=== PATIENT | female | born 1965 | race Caucasian/White ===

== ENCOUNTER → 2016-11-04 | Outpatient (REF) | payer MEDICARE, MEDICAID | LOC: M LAB REF 16:27 | PROVIDERS: ATTEND Physician Assistant | DX: R30.0 Dysuria (principal) ==

== ENCOUNTER 2016-12-19 13:07 | Emergency (ER) | payer MEDICARE, MEDICAID ==
[~2016-12-19] VITALS: Ht 162.6 cm; Wt 61.2 kg
[2016-12-19] MEDS ORDERED: NORCO, ANEXSIA 5/325MG TABLET (HYDROcodone/ACETAMINOPHEN) PO ONE (13:45)
--- NOTE | 2016-12-19 14:39 | REP ---
Right lower extremity Duplex Doppler venous ultrasound: Real time compression and duplex Doppler interrogation of the right lower extremity deep venous system is performed. The right common femoral, superficial femoral and popliteal veins are fully compressible with transducer pressure and demonstrate normal spontaneous and phasic flow, without evidence of deep venous thrombosis. Impression: No evidence of deep venous thrombosis of the right lower extremity femoral popliteal venous system. Signed by Santo Badillo MD 12/19/2016 02:30 P
[2016-12-19] MEDS ORDERED: NAPR500T PO (14:45)
[2016-12-19 14:54] VITALS: BP 126/73
== END 2016-12-19 14:52 | disposition home or self-care (01) ==
LOC: M ED 13:07
DX: M54.31 Sciatica, right side (principal); M54.16 Radiculopathy, lumbar region; Z87.891 Personal history of nicotine dependence

== ENCOUNTER → 2017-06-03 | Outpatient (CLI) | payer MEDICARE, MEDICAID | LOC: M RAD 09:50 | DX: Z12.31 Encounter for screening mammogram for malignant neoplasm of breast (principal); R92.8 Other abnormal and inconclusive findings on diagnostic imaging of breast | CPT/HCPCS: 77067 ==

== ENCOUNTER → 2017-09-02 | Outpatient (REF) | payer MEDICARE, MEDICAID ==
[2017-09-02 17:18] LABS: APPEARANCE, URINE HAZY (CLEAR); BACTERIA, URINE AUTO NEGATIVE (NEGATIVE); BILIRUBIN, URINE AUTO NEGATIVE (NEGATIVE); BLOOD, URINE BLOOD NEGATIVE (NEGATIVE); CALCIUM OXALATE CRYSTALS LARGE; COLOR, URINE YELLOW (YELLOW); GLUCOSE, URINE (UA) AUTO 1+ mg/dL (NEGATIVE); KETONE, URINE AUTO NEGATIVE (NEGATIVE); LEUKOCYTE ESTERASE, URINE AUTO NEGATIVE (NEGATIVE); MUCUS, URINE SMALL (NEGATIVE); NITRITE, URINE AUTO NEGATIVE (NEGATIVE); PROTEIN, URINE AUTO NEGATIVE (NEGATIVE); RBC, URINE AUTO 2 /HPF (0-3); SQUAMOUS EPITHELIAL CELL UR AU 0 /HPF (0-6); UROBILINOGEN, URINE AUTO 0.2 mg/dL (0.0-2.0); WBC, URINE AUTO 2 /HPF (0-3)
== END ==
LOC: M LAB REF 16:40
DX: N39.0 Urinary tract infection, site not specified (principal)
CPT/HCPCS: 81001

== ENCOUNTER → 2018-02-10 | Outpatient (REF) | payer MEDICARE, MEDICAID ==
[2018-02-10 17:37] LABS: APPEARANCE, URINE CLOUDY (CLEAR); BACTERIA, URINE AUTO 2+ (NEGATIVE); BILIRUBIN, URINE AUTO NEGATIVE (NEGATIVE); BLOOD, URINE BLOOD 2+ (NEGATIVE); CALCIUM OXALATE CRYSTALS MODERATE; COLOR, URINE YELLOW (YELLOW); GLUCOSE, URINE (UA) AUTO NEGATIVE (NEGATIVE); KETONE, URINE AUTO NEGATIVE (NEGATIVE); LEUKOCYTE ESTERASE, URINE AUTO 3+ (NEGATIVE); MUCUS, URINE SMALL (NEGATIVE); NITRITE, URINE AUTO NEGATIVE (NEGATIVE); PROTEIN, URINE AUTO NEGATIVE (NEGATIVE); RBC, URINE AUTO 18 /HPF (0-3); SPECIFIC GRAVITY URINE AUTO 1.017 (1.002-1.035); SQUAMOUS EPITHELIAL CELL UR AU 0 /HPF (0-6); UROBILINOGEN, URINE AUTO 0.2 mg/dL (0.0-2.0); WBC, URINE AUTO TNTC /HPF (0-3)
== END ==
LOC: M LAB REF 16:34
DX: N39.0 Urinary tract infection, site not specified (principal)
CPT/HCPCS: 81001

== ENCOUNTER → 2018-05-10 | Outpatient (REF) | payer MEDICARE, MEDICAID ==
[2018-05-10 13:36] LABS: BASO % 0.7 % (0.0-1.0); EOS # 0.1 10^3/uL (0.0-0.50); EOS % 0.9 % (0.0-3.0); HEMATOCRIT 47.2 % (36.0-47.0); HEMOGLOBIN 15.9 g/dl (12.0-15.5); IMMATURE GRANULOCYTE % 0.2 % (0-3.0); LYMPH # 1.2 10^3/uL (1.5-4.5); LYMPH % 21.4 % (24.0-44.0); MEAN CORPUSCULAR HEMOGLOBIN 29.4 pg (27.0-33.0); MEAN CORPUSCULAR HGB CONC 33.7 g/dl (32.0-36.5); MEAN CORPUSCULAR VOLUME 87.4 fl (80.0-96.0); MONO # 0.5 10^3/uL (0.0-0.8); MONO % 8.4 % (0.0-5.0); NEUTROPHILS % 68.4 % (36.0-66.0); PLATELET COUNT, AUTOMATED 288 10^3/uL (150-450); WHITE BLOOD COUNT 5.8 10^3/uL (4.0-10.0)
[2018-05-10 13:56] LABS: ALBUMIN 3.6 GM/DL (3.2-5.2); ALKALINE PHOSPHATASE 88 U/L (45-117); ALT/SGPT 24 U/L (12-78); ANION GAP 7 MEQ/L (8-16); AST/SGOT 14 U/L (7-37); BILIRUBIN,TOTAL 0.5 MG/DL (0.2-1.0); BLOOD UREA NITROGEN 14 MG/DL (7-18); CALCIUM LEVEL 8.6 MG/DL (8.5-10.1); CARBON DIOXIDE LEVEL 27 MEQ/L (21-32); CHLORIDE LEVEL 107 MEQ/L (98-107); CHOLESTEROL LEVEL 193 MG/DL (<200); CREATININE FOR GFR 0.83 MG/DL (0.55-1.30); ESTIMATED AVERAGE GLUCOSE 151 MG/DL (60-110); GLOMERULAR FILTRATION RATE > 60.0 (>51); GLUCOSE, FASTING 127 MG/DL (70-100); HDL CHOLESTEROL 50 MG/DL (>40); HEMOGLOBIN A1c 6.9 %; LDL CHOLESTEROL 114 MG/DL (<100); NON-HDL-C 143 MG/DL; POTASSIUM SERUM 3.8 MEQ/L (3.5-5.1); SODIUM LEVEL 141 MEQ/L (136-145); TOTAL 25(OH) VITAMIN D 25.9 NG/ML (30.0-100.0); TOTAL PROTEIN 7.2 GM/DL (6.4-8.2); TRIGLYCERIDES LEVEL 143 MG/DL (<150); VITAMIN B12 LEVEL 677 PG/ML (247-911)
== END ==
LOC: M LAB REF 12:19
DX: E11.9 Type 2 diabetes mellitus without complications (principal); E66.3 Overweight
CPT/HCPCS: 84443

== ENCOUNTER 2018-05-26 17:54 | Emergency (ER) | payer MEDICARE, MEDICAID ==
[~2018-05-26] VITALS: Ht 162.6 cm; Wt 66.4 kg
[~2018-05-26 17:54] MED LIST: NAPR-49 PO
[2018-05-26 18:54] LABS: BASO % 0.4 % (0.0-1.0); EOS # 0.1 10^3/uL (0.0-0.50); EOS % 0.8 % (0.0-3.0); HEMATOCRIT 46.2 % (36.0-47.0); LYMPH # 1.5 10^3/uL (1.5-4.5); LYMPH % 14.2 % (24.0-44.0); MEAN CORPUSCULAR HEMOGLOBIN 29.9 pg (27.0-33.0); MEAN CORPUSCULAR HGB CONC 34.6 g/dl (32.0-36.5); MEAN CORPUSCULAR VOLUME 86.4 fl (80.0-96.0); MONO # 0.6 10^3/uL (0.0-0.8); MONO % 5.5 % (0.0-5.0); NEUTROPHILS # 8.4 10^3/uL (1.8-7.7); NEUTROPHILS % 78.7 % (36.0-66.0); PLATELET COUNT, AUTOMATED 302 10^3/uL (150-450); RED BLOOD COUNT 5.35 10^6/uL (4.00-5.40); WHITE BLOOD COUNT 10.7 10^3/uL (4.0-10.0)
--- NOTE | 2018-05-26 19:06 | REP ---
Portable chest x-ray: Single view. History: Syncope. Findings: The lungs are symmetrically aerated and clear. The pleural angles are sharp. Heart size is normal. Pulmonary vasculature is not increased. EKG monitoring electrodes are seen. No bony abnormality is seen. Impression: No active disease. Electronically Signed by Chandler Zayas MD 05/26/2018 06:58 P
[2018-05-26] MEDS ORDERED: NS 1,000 ML IV ONE (19:30)
[2018-05-26 19:32] LABS: BLOOD UREA NITROGEN 12 MG/DL (7-18); CALCIUM LEVEL 9.2 MG/DL (8.5-10.1); CARBON DIOXIDE LEVEL 23 MEQ/L (21-32); CHLORIDE LEVEL 106 MEQ/L (98-107); CK-MB VALUE MASS < 1.0 NG/ML (<3.6); CPK CREATINE PHOSPHOKINASE 85 U/L (26-192); CREATININE FOR GFR 0.84 MG/DL (0.55-1.30); GLOMERULAR FILTRATION RATE > 60.0 (>51); GLUCOSE, FASTING 130 MG/DL (70-100); MAGNESIUM LEVEL 1.7 MG/DL (1.8-2.4); MB/CK RELATIVE INDEX 1.18 (< OR =4); POTASSIUM SERUM 3.7 MEQ/L (3.5-5.1); SODIUM LEVEL 142 MEQ/L (136-145); TROPONIN I < 0.02 NG/ML (< 0.10)
[2018-05-26] MEDS ORDERED: MAGNESIUM OXIDE 400 MG TAB (MAG-OX) PO ONE (21:00)
[2018-05-26] MEDS ORDERED: ONDANSETRON 4MG/2ML VIAL (J2405) IV ONE (21:00)
[2018-05-26 21:47] VITALS: BP 126/70
--- NOTE | 2018-05-27 11:22 | ECGEPIP ---
Stationary ECG Study [facility] - ED Test Date: 2018-05-26 Pat Name: OCTAVIO THAPA Department: Room: - Gender: F Supervisor Parking Lot: delio : [id number] Requested By: Karen Pablo Order Number: [id number] Reading MD: Richard Pimentel Measurements Intervals Zap Rate: 62 P: 46 FL: 141 QRS: 67 QRSD: 95 T: 50 QT: 439 QTc: 448 Interpretive Statements SINUS RHYTHM WITH SINUS ARRHYTHMIA POSSIBLE INCOMPLETE RIGHT BUNDLE BRANCH BLOCK NSTTW ABNORMALITIES NO PRIORS FOR COMPARISON Electronically Signed On 05-27-2018 11:22:05 EST by Richard Pimentel
== END 2018-05-26 22:03 | disposition home or self-care (01) ==
LOC: EDBD 17:54 → M ED 17:54
DX: I95.1 Orthostatic hypotension (principal); E83.42 Hypomagnesemia; R32 Unspecified urinary incontinence; R11.10 Vomiting, unspecified; E11.9 Type 2 diabetes mellitus without complications
CPT/HCPCS: 71045; 80048; 82550; 82553; 83605; 83735; 84443; 84484; 85025; 93005; 93041; 94760; 96361; 96374; 99285; J2405

== ENCOUNTER → 2018-08-11 | Outpatient (REF) | payer MEDICARE, MEDICAID ==
[~2018-08-11] MED LIST changes: -NAPR-49 PO; +NAPR-50 PO
[2018-08-11 14:35] LABS: BASO % 0.6 % (0.0-1.0); EOS # 0.1 10^3/uL (0.0-0.50); EOS % 1.3 % (0.0-3.0); HEMATOCRIT 46.4 % (36.0-47.0); HEMOGLOBIN 15.9 g/dl (12.0-15.5); LYMPH # 1.3 10^3/uL (1.5-4.5); LYMPH % 19.1 % (24.0-44.0); MEAN CORPUSCULAR HEMOGLOBIN 29.6 pg (27.0-33.0); MEAN CORPUSCULAR HGB CONC 34.3 g/dl (32.0-36.5); MEAN CORPUSCULAR VOLUME 86.4 fl (80.0-96.0); MONO # 0.6 10^3/uL (0.0-0.8); MONO % 7.8 % (0.0-5.0); NEUTROPHILS % 70.8 % (36.0-66.0); PLATELET COUNT, AUTOMATED 296 10^3/uL (150-450); RED BLOOD COUNT 5.37 10^6/uL (4.00-5.40)
[2018-08-11 15:14] LABS: CHOLESTEROL RISK RATIO 3.69 (<5); THYROID STIMULATING HORMONE 2.02 uIU/ML (0.358-3.740)
[2018-08-11 15:15] LABS: TOTAL 25(OH) VITAMIN D 26.5 NG/ML (30.0-100.0)
[2018-08-11 15:21] LABS: HEMOGLOBIN A1c 6.1 %
== END ==
LOC: M LAB REF 13:37
PROVIDERS: ATTEND Nurse Practitioner Family
DX: Z00.00 Encounter for general adult medical examination without abnormal findings (principal); E66.3 Overweight; Z13.9 Encounter for screening, unspecified; E11.9 Type 2 diabetes mellitus without complications; M77.8 Other enthesopathies, not elsewhere classified; J30.2 Other seasonal allergic rhinitis

== ENCOUNTER → 2018-08-30 | Outpatient (REF) | payer MEDICARE, MEDICAID ==
[2018-08-30 15:56] LABS: APPEARANCE, URINE TURBID (CLEAR); BACTERIA, URINE AUTO 3+ (NEGATIVE); BILIRUBIN, URINE AUTO NEGATIVE (NEGATIVE); BLOOD, URINE BLOOD 2+ (NEGATIVE); CALCIUM OXALATE CRYSTALS SMALL; COLOR, URINE YELLOW (YELLOW); GLUCOSE, URINE (UA) AUTO NEGATIVE (NEGATIVE); KETONE, URINE AUTO TRACE mg/dL (NEGATIVE); LEUKOCYTE ESTERASE, URINE AUTO 3+ (NEGATIVE); MUCUS, URINE SMALL (NEGATIVE); NITRITE, URINE AUTO NEGATIVE (NEGATIVE); PROTEIN, URINE AUTO 2+ mg/dL (NEGATIVE); RBC, URINE AUTO 119 /HPF (0-3); SPECIFIC GRAVITY URINE AUTO 1.018 (1.002-1.035); SQUAMOUS EPITHELIAL CELL UR AU 1 /HPF (0-6); UROBILINOGEN, URINE AUTO 0.2 mg/dL (0.0-2.0); WBC, URINE AUTO TNTC /HPF (0-3)
== END ==
LOC: M LAB REF 15:29
PROVIDERS: ATTEND Physician Assistant Medical
DX: N39.0 Urinary tract infection, site not specified (principal)

== ENCOUNTER → 2018-12-07 | Outpatient (REF) | payer MEDICARE, MEDICAID ==
[~2018-12-07] MED LIST changes: -NAPR-50 PO; +NAPR-837 PO
[2018-12-07 18:42] LABS: BASO # 0.1 10^3/uL (0.0-0.2); BASO % 0.6 % (0.0-1.0); EOS # 0.1 10^3/uL (0.0-0.50); EOS % 1.1 % (0.0-3.0); HEMATOCRIT 49.1 % (36.0-47.0); HEMOGLOBIN 16.3 g/dl (12.0-15.5); LYMPH # 1.1 10^3/uL (1.5-4.5); LYMPH % 13.2 % (24.0-44.0); MEAN CORPUSCULAR HGB CONC 33.2 g/dl (32.0-36.5); MEAN CORPUSCULAR VOLUME 90.4 fl (80.0-96.0); MONO # 0.7 10^3/uL (0.0-0.8); MONO % 8.8 % (0.0-5.0); NEUTROPHILS # 6.2 10^3/uL (1.8-7.7); NEUTROPHILS % 76.1 % (36.0-66.0); PLATELET COUNT, AUTOMATED 298 10^3/uL (150-450); RED BLOOD COUNT 5.43 10^6/uL (4.00-5.40); WHITE BLOOD COUNT 8.2 10^3/uL (4.0-10.0)
[2018-12-07 18:51] LABS: HEMOGLOBIN A1c 6.3 %
[2018-12-07 18:51] LABS: APPEARANCE, URINE HAZY (CLEAR); BACTERIA, URINE AUTO NEGATIVE (NEGATIVE); BILIRUBIN, URINE AUTO NEGATIVE (NEGATIVE); BLOOD, URINE BLOOD 1+ (NEGATIVE); COLOR, URINE YELLOW (YELLOW); GLUCOSE, URINE (UA) AUTO NEGATIVE (NEGATIVE); KETONE, URINE AUTO 1+ mg/dL (NEGATIVE); LEUKOCYTE ESTERASE, URINE AUTO 3+ (NEGATIVE); MUCUS, URINE SMALL (NEGATIVE); NITRITE, URINE AUTO NEGATIVE (NEGATIVE); PROTEIN, URINE AUTO NEGATIVE (NEGATIVE); RBC, URINE AUTO 4 /HPF (0-3); SPECIFIC GRAVITY URINE AUTO 1.016 (1.002-1.035); SQUAMOUS EPITHELIAL CELL UR AU 1 /HPF (0-6); UROBILINOGEN, URINE AUTO 0.2 mg/dL (0.0-2.0); WBC, URINE AUTO 74 /HPF (0-3)
[2018-12-07 19:04] LABS: ALBUMIN 3.9 GM/DL (3.2-5.2); ALT/SGPT 23 U/L (12-78); BILIRUBIN,TOTAL 0.5 MG/DL (0.2-1.0); BLOOD UREA NITROGEN 14 MG/DL (7-18); CALCIUM LEVEL 9.5 MG/DL (8.5-10.1); CARBON DIOXIDE LEVEL 27 MEQ/L (21-32); CHLORIDE LEVEL 105 MEQ/L (98-107); CHOLESTEROL LEVEL 201 MG/DL (<200); CHOLESTEROL RISK RATIO 3.526 (<5); CREATININE FOR GFR 0.89 MG/DL (0.55-1.30); FREE T4 1.25 NG/DL (0.76-1.46); GLOMERULAR FILTRATION RATE > 60.0 (>51); GLUCOSE, FASTING 110 MG/DL (70-100); HDL CHOLESTEROL 57 MG/DL (>40); LDL CHOLESTEROL 124 MG/DL (<100); NON-HDL-C 144 MG/DL; POTASSIUM SERUM 4.2 MEQ/L (3.5-5.1); SODIUM LEVEL 141 MEQ/L (136-145); TOTAL PROTEIN 7.4 GM/DL (6.4-8.2); TRIGLYCERIDES LEVEL 101 MG/DL (<150)
[2018-12-07 19:04] LABS: CREATININE, URINE 99.7 MG/DL; MALB URINE SIEMENS 23.1 MG/L; MAU/CREAT RATIO 23.1 MCG/MG (0.0-30.0)
== END ==
LOC: M LAB REF 17:46
PROVIDERS: ATTEND Nurse Practitioner Family
DX: Z13.9 Encounter for screening, unspecified (principal); E11.9 Type 2 diabetes mellitus without complications

== ENCOUNTER → 2018-12-28 | Outpatient (REF) | payer MEDICARE, MEDICAID ==
[2018-12-28 18:17] LABS: APPEARANCE, URINE HAZY (CLEAR); BACTERIA, URINE AUTO NEGATIVE (NEGATIVE); BILIRUBIN, URINE AUTO NEGATIVE (NEGATIVE); BLOOD, URINE BLOOD 1+ (NEGATIVE); CALCIUM OXALATE CRYSTALS MODERATE; COLOR, URINE YELLOW (YELLOW); GLUCOSE, URINE (UA) AUTO NEGATIVE (NEGATIVE); KETONE, URINE AUTO NEGATIVE (NEGATIVE); LEUKOCYTE ESTERASE, URINE AUTO TRACE (NEGATIVE); MUCUS, URINE SMALL (NEGATIVE); NITRITE, URINE AUTO NEGATIVE (NEGATIVE); PROTEIN, URINE AUTO NEGATIVE (NEGATIVE); RBC, URINE AUTO 0 /HPF (0-3); SPECIFIC GRAVITY URINE AUTO 1.011 (1.002-1.035); SQUAMOUS EPITHELIAL CELL UR AU 1 /HPF (0-6); UROBILINOGEN, URINE AUTO 0.2 mg/dL (0.0-2.0); WBC, URINE AUTO 2 /HPF (0-3)
[2018-12-31 14:07] LABS: HPV HYBRID CAPTURE II Negative (Negative)
== END ==
LOC: M LAB REF 16:52
PROVIDERS: ATTEND Nurse Practitioner Family
DX: R10.2 Pelvic and perineal pain (principal); Z12.4 Encounter for screening for malignant neoplasm of cervix
CPT/HCPCS: 81001; 87624; G0123

== ENCOUNTER → 2019-02-02 | Outpatient (CLI) | payer MEDICARE, MEDICAID ==
--- NOTE | 2019-02-02 10:25 | REP ---
Clinical: Pelvic pain. Technique: Transabdominal pelvic ultrasound followed by transvaginal examination for better evaluation of the endometrium and adnexa with color Doppler evaluation of the ovaries. Findings: Bladder is normal and measures 10.1 x 8.6 x 9.4 cm. Heterogeneous anteverted uterus measures 5.6 x 2.4 x 4.0 cm. Endometrial complex measures 5 mm thickness. A small amount of endocervical fluid is appreciated along with a 9 x 4 x 7 mm hyperechoic focus suggesting endometrial polyp. Bilateral ovaries are normal in vascularity without torsion. Right ovary measures 1.7 x 1.0 x 1.6 cm (RI 0.42) and includes two sub centimeter echogenic areas which are nonspecific and may represent resolving hemorrhagic cyst. Left ovary measures 1.9 x 1.1 x 0.9 cm (RI 0.55). Impression: 1. Heterogeneous anteverted uterus with suspected subcentimeter endometrial polyp and small amount of endocervical fluid. 2. Small subcentimeter hyperechoic focus in the right ovary may represent hemorrhagic physiologic cyst. Electronically Signed by Serafin Dc MD 02/02/2019 10:17 A
== END ==
LOC: M RAD 09:25
PROVIDERS: ATTEND Nurse Practitioner Family
DX: R10.2 Pelvic and perineal pain (principal); N83.8 Other noninflammatory disorders of ovary, fallopian tube and broad ligament

== ENCOUNTER → 2019-03-01 | Outpatient (REF) | payer MEDICARE, MEDICAID ==
[2019-03-01 12:08] LABS: BASO # 0.1 10^3/uL (0.0-0.2); BASO % 0.7 % (0.0-1.0); EOS # 0.2 10^3/uL (0.0-0.5); EOS % 1.8 % (0.0-3.0); HEMATOCRIT 45.7 % (36.0-47.0); HEMOGLOBIN 15.4 g/dl (12.0-15.5); LYMPH # 1.4 10^3/uL (1.5-5.0); LYMPH % 16.9 % (24.0-44.0); MEAN CORPUSCULAR HEMOGLOBIN 29.9 pg (27.0-33.0); MEAN CORPUSCULAR HGB CONC 33.7 g/dl (32.0-36.5); MEAN CORPUSCULAR VOLUME 88.7 fl (80.0-96.0); MONO # 0.7 10^3/uL (0.0-0.8); MONO % 8.6 % (0.0-5.0); NEUTROPHILS # 6.1 10^3/uL (1.5-8.5); NEUTROPHILS % 71.8 % (36.0-66.0); PLATELET COUNT, AUTOMATED 318 10^3/uL (150-450); RED BLOOD COUNT 5.15 10^6/uL (4.00-5.40); WHITE BLOOD COUNT 8.5 10^3/uL (4.0-10.0)
[2019-03-01 12:14] LABS: ALBUMIN 3.7 GM/DL (3.2-5.2); ALT/SGPT 22 U/L (12-78); BILIRUBIN,TOTAL 0.5 MG/DL (0.2-1.0); BLOOD UREA NITROGEN 18 MG/DL (7-18); CALCIUM LEVEL 9.3 MG/DL (8.5-10.1); CARBON DIOXIDE LEVEL 31 MEQ/L (21-32); CHLORIDE LEVEL 105 MEQ/L (98-107); CHOLESTEROL LEVEL 206 MG/DL (<200); CHOLESTEROL RISK RATIO 3.814 (<5); CREATININE FOR GFR 0.72 MG/DL (0.55-1.30); GLOMERULAR FILTRATION RATE > 60.0 (>51); GLUCOSE, FASTING 107 MG/DL (70-100); HDL CHOLESTEROL 54 MG/DL (>40); LDL CHOLESTEROL 135 MG/DL (<100); NON-HDL-C 152 MG/DL; POTASSIUM SERUM 4.3 MEQ/L (3.5-5.1); SODIUM LEVEL 142 MEQ/L (136-145); TOTAL PROTEIN 7.2 GM/DL (6.4-8.2); TRIGLYCERIDES LEVEL 85 MG/DL (<150)
[2019-03-01 12:23] LABS: HEMOGLOBIN A1c 5.7 %
== END ==
LOC: M LAB REF 11:37
PROVIDERS: ATTEND Nurse Practitioner Family
DX: Z13.9 Encounter for screening, unspecified (principal); E11.9 Type 2 diabetes mellitus without complications

== ENCOUNTER → 2019-06-27 | Outpatient (REF) | payer MEDICARE, MEDICAID ==
[2019-06-27 13:35] LABS: BASO % 0.6 % (0.0-1.0); EOS # 0.1 10^3/uL (0.0-0.5); EOS % 1.4 % (0.0-3.0); HEMOGLOBIN 15.1 g/dl (12.0-15.5); LYMPH # 1.6 10^3/uL (1.5-5.0); LYMPH % 24.8 % (24.0-44.0); MEAN CORPUSCULAR HEMOGLOBIN 29.7 pg (27.0-33.0); MEAN CORPUSCULAR HGB CONC 32.8 g/dl (32.0-36.5); MEAN CORPUSCULAR VOLUME 90.6 fl (80.0-96.0); MONO # 0.6 10^3/uL (0.0-0.8); MONO % 10.1 % (0.0-5.0); NEUTROPHILS # 3.9 10^3/uL (1.5-8.5); NEUTROPHILS % 62.8 % (36.0-66.0); PLATELET COUNT, AUTOMATED 292 10^3/uL (150-450); RED BLOOD COUNT 5.08 10^6/uL (4.00-5.40); WHITE BLOOD COUNT 6.2 10^3/uL (4.0-10.0)
[2019-06-27 13:57] LABS: ALT/SGPT 22 U/L (12-78); BILIRUBIN,TOTAL 0.6 MG/DL (0.2-1.0); BLOOD UREA NITROGEN 16 MG/DL (7-18); CARBON DIOXIDE LEVEL 29 MEQ/L (21-32); CHLORIDE LEVEL 105 MEQ/L (98-107); CHOLESTEROL LEVEL 215 MG/DL (<200); CHOLESTEROL RISK RATIO 3.706 (<5); CREATININE FOR GFR 0.76 MG/DL (0.55-1.30); GLOMERULAR FILTRATION RATE > 60.0 (>51); GLUCOSE, FASTING 108 MG/DL (70-100); HDL CHOLESTEROL 58 MG/DL (>40); LDL CHOLESTEROL 125 MG/DL (<100); NON-HDL-C 157 MG/DL; POTASSIUM SERUM 3.7 MEQ/L (3.5-5.1); SODIUM LEVEL 140 MEQ/L (136-145); TOTAL PROTEIN 7.3 GM/DL (6.4-8.2); TRIGLYCERIDES LEVEL 160 MG/DL (<150)
[2019-06-27 14:13] LABS: HEMOGLOBIN A1c 6.4 %
== END ==
LOC: M LAB REF 12:50
PROVIDERS: ATTEND Nurse Practitioner Family
DX: E78.5 Hyperlipidemia, unspecified (principal); Z13.9 Encounter for screening, unspecified; E11.9 Type 2 diabetes mellitus without complications

== ENCOUNTER → 2019-10-03 | Outpatient (REF) | payer OTHER, MEDICARE ==
[2019-10-03 12:00] LABS: BASO # 0.1 10^3/uL (0.0-0.2); BASO % 0.6 % (0.0-1.0); EOS # 0.1 10^3/uL (0.0-0.5); EOS % 1.7 % (0.0-3.0); HEMOGLOBIN 14.5 g/dl (12.0-15.5); LYMPH # 1.7 10^3/uL (1.5-5.0); LYMPH % 22.3 % (24.0-44.0); MEAN CORPUSCULAR HEMOGLOBIN 29.7 pg (27.0-33.0); MEAN CORPUSCULAR VOLUME 90.2 fl (80.0-96.0); MONO # 0.6 10^3/uL (0.0-0.8); NEUTROPHILS # 5.2 10^3/uL (1.5-8.5); NEUTROPHILS % 66.9 % (36.0-66.0); PLATELET COUNT, AUTOMATED 301 10^3/uL (150-450); RED BLOOD COUNT 4.88 10^6/uL (4.00-5.40); WHITE BLOOD COUNT 7.8 10^3/uL (4.0-10.0)
[2019-10-03 12:10] LABS: ALBUMIN 3.4 GM/DL (3.2-5.2); ALT/SGPT 21 U/L (12-78); BILIRUBIN,TOTAL 0.7 MG/DL (0.2-1.0); BLOOD UREA NITROGEN 22 MG/DL (7-18); CALCIUM LEVEL 9.3 MG/DL (8.5-10.1); CARBON DIOXIDE LEVEL 25 MEQ/L (21-32); CHLORIDE LEVEL 108 MEQ/L (98-107); CHOLESTEROL LEVEL 175 MG/DL (<200); CHOLESTEROL RISK RATIO 3.977 (<5); CREATININE FOR GFR 0.95 MG/DL (0.55-1.30); GLOMERULAR FILTRATION RATE > 60.0 (>51); GLUCOSE, FASTING 130 MG/DL (70-100); HDL CHOLESTEROL 44 MG/DL (>40); LDL CHOLESTEROL 105 MG/DL (<100); NON-HDL-C 131 MG/DL; POTASSIUM SERUM 3.8 MEQ/L (3.5-5.1); SODIUM LEVEL 141 MEQ/L (136-145); TRIGLYCERIDES LEVEL 131 MG/DL (<150)
[2019-10-03 12:36] LABS: HEMOGLOBIN A1c 6.4 %
== END ==
LOC: M LAB REF 11:12
PROVIDERS: ATTEND Nurse Practitioner Family
DX: E78.5 Hyperlipidemia, unspecified (principal); E11.9 Type 2 diabetes mellitus without complications; Z13.9 Encounter for screening, unspecified

== ENCOUNTER → 2020-01-04 | Outpatient (REF) | payer OTHER, MEDICAID | LOC: M LAB REF 17:55 | PROVIDERS: ATTEND Nurse Practitioner Family | DX: R31.29 Other microscopic hematuria (principal); Z13.9 Encounter for screening, unspecified ==

== ENCOUNTER 2020-06-30 06:19 | Emergency (ER) | payer OTHER, MEDICAID ==
[~2020-06-30] VITALS: Ht 162.6 cm; Wt 63.6 kg
--- OUTSIDE RECORDS SUMMARY | 2020-06-30 06:24 | CCD ---
Author Author [facility] Organization [facility] Address Unknown Phone Unavailable Care Team Providers Care Coverstitch Elastic Attacher Name Role Phone Guy, Sammie POLITICAL SCIENCE INSTRUCTOR POLITICAL SCIENCE INSTRUCTOR Unavailable Unavailable Guy, A Sammie POLITICAL SCIENCE INSTRUCTOR Unavailable Unavailable Guy, A Sammie POLITICAL SCIENCE INSTRUCTOR Unavailable Unavailable Guy, A Sammie POLITICAL SCIENCE INSTRUCTOR Unavailable Unavailable Guy, A Smamie POLITICAL SCIENCE INSTRUCTOR Unavailable Unavailable Guy, A Sammie POLITICAL SCIENCE INSTRUCTOR Unavailable Unavailable Guy, A Sammie POLITICAL SCIENCE INSTRUCTOR Unavailable Unavailable Guy, A Sammie POLITICAL SCIENCE INSTRUCTOR Unavailable Unavailable Guy, A Sammie POLITICAL SCIENCE INSTRUCTOR Unavailable Unavailable Guy, A Sammie POLITICAL SCIENCE INSTRUCTOR Unavailable Unavailable Guy, A Sammie POLITICAL SCIENCE INSTRUCTOR Unavailable Unavailable Guy, A Sammie POLITICAL SCIENCE INSTRUCTOR Unavailable Unavailable Guy, A Sammie POLITICAL SCIENCE INSTRUCTOR Unavailable Unavailable Guy, A Sammie POLITICAL SCIENCE INSTRUCTOR Unavailable Unavailable Guy, A Sammie POLITICAL SCIENCE INSTRUCTOR Unavailable Unavailable Guy, A Sammie POLITICAL SCIENCE INSTRUCTOR Unavailable Unavailable Guy, A Sammie POLITICAL SCIENCE INSTRUCTOR Unavailable Unavailable Guy, A Sammie POLITICAL SCIENCE INSTRUCTOR Unavailable Unavailable Guy, A Sammie POLITICAL SCIENCE INSTRUCTOR Unavailable Unavailable Guy, A Sammie POLITICAL SCIENCE INSTRUCTOR Unavailable Unavailable Guy, A Sammie POLITICAL SCIENCE INSTRUCTOR Unavailable Unavailable Guy, A Sammie POLITICAL SCIENCE INSTRUCTOR Unavailable Unavailable Guy, A Sammie POLITICAL SCIENCE INSTRUCTOR Unavailable Unavailable Guy, A Sammie POLITICAL SCIENCE INSTRUCTOR Unavailable Unavailable Guy, A Sammie POLITICAL SCIENCE INSTRUCTOR Unavailable Unavailable Guy, A Sammie POLITICAL SCIENCE INSTRUCTOR Unavailable Unavailable Guy, A Sammie POLITICAL SCIENCE INSTRUCTOR Unavailable Unavailable Guy, A Sammie POLITICAL SCIENCE INSTRUCTOR Unavailable Unavailable Guy, A Sammie POLITICAL SCIENCE INSTRUCTOR Unavailable Unavailable Re-disclosure Warning The records that you are about to access may contain information from federally-assisted alcohol or drug abuse programs. If such information is present, then the following federally mandated warning applies: This information has been disclosed to you from records protected by federal confidentiality rules (42 CFR part 2). The federal rules prohibit you from making any further disclosure of this information unless further disclosure is expressly permitted by the written consent of the person to whom it pertains or as otherwise permitted by 42 CFR part 2. A general authorization for the release of medical or other information is NOT sufficient for this purpose. The Federal rules restrict any use of the information to criminally investigate or prosecute any alcohol or drug abuse patient.The records that you are about to access may contain highly sensitive health information, the redisclosure of which is protected by Article 27-F of the [facility] Public Health law. If you continue you may have access to information: Regarding HIV / AIDS; Provided by facilities licensed or operated by the [facility] Office of Mental Health; or Provided by the [facility] Office for People With Developmental Disabilities. If such information is present, then the following [facility] mandated warning applies: This information has been disclosed to you from confidential records which are protected by state law. State law prohibits you from making any further disclosure of this information without the specific written consent of the person to whom it pertains, or as otherwise permitted by law. Any unauthorized further disclosure in violation of state law may result in a fine or shelter sentence or both. A general authorization for the release of medical or other information is NOT sufficient authorization for further disc losure. Encounters Encounter Providers Location Date Indications Data Source(s ) [facility]patient [facility]: [facility] 11:3 0:[address] [facility] Outpatient Attender: POLITICAL SCIENCE INSTRUCTORNery Tovar [facility] 03/02/2020 09:06:[address] [facility] Outpatient Attender: Sammie Tovar [facility] 03/02/2020 09:0 6:[address] [facility] Outpatient Attender: IVONE Tovar [facility] 02/23/2020 08:01:04 P M EDT [facility] Outpatient Attender: IVONE WISEMAN FP 02/04/2020 09:12:01 P M EDT [facility] Outpatient Attender: Sammie MIGUELP FP 02/04/2020 09:1 2:01 PM EDT [facility] Outpatient Attender: IVONE WISEMAN FP 02/04/2020 09:11:01 P M EDT [facility] Outpatient Attender: Sammie MIGUELP FP 02/04/2020 09:1 1:00 PM EDT [facility] Outpatient Attender: Sammie MIGUELP FP 01/18/2020 10:2 3:00 AM EDT [facility] Outpatient Attender: IVONE WISEMAN FP 01/12/2020 08:01:04 P M EDT [facility] Outpatient Attender: Sammie MIGUELP FP 01/10/2020 12:5 3:59 AM EDT [facility] Outpatient Attender: IVONE MIGUELP FP 01/05/2020 07:51:01 A M EDT [facility] Outpatient Attender: IVONE MIGUELP FP 01/04/2020 10:32:03 A M EDT [facility] Outpatient Attender: Sammie MIGUELP FP 01/04/2020 10:0 6:02 AM EDT [facility] Outpatient Attender: IVONE WISEMAN FP 01/04/2020 09:00:01 A M EDT [facility] Outpatient Attender: IVONE MIGUELP FP 12/28/2019 12:02:13 A M EDT [facility] Outpatient Attender: IVONE MIGUELP FP 12/27/2019 09:54:00 A M EDT [facility] Outpatient Attender: IVONE MIGUELP FP 12/27/2019 12:02:10 A M EDT [facility] Outpatient Attender: IVONE WISEMAN FP 12/26/2019 12:10:00 P M EDT [facility] Outpatient Attender: IVONE MIGUELP FP 11/30/2019 12:04:01 P M EDT [facility] Outpatient Attender: Sammie MIGUELP FP 11/18/2019 01:1 4:01 PM EDT [facility] Outpatient Attender: IVONE MIGUELP FP 11/18/2019 01:13:59 P M EDT [facility] Outpatient Attender: Sammie MIGUELP FP 11/11/2019 07:1 1:01 PM EDT [facility] Outpatient Attender: IVONE MIGUELP FP 11/07/2019 07:43:07 P M EDT [facility] Outpatient Attender: IVONE MIGUELP FP 11/06/2019 12:30:05 P M EDT [facility] Outpatient Attender: IVONE MIGUELP FP 11/06/2019 11:30:04 A M EDT [facility] Outpatient Attender: Sammie MIGUELP FP 10/22/2019 12:2 8:00 AM EDT [facility] Outpatient Attender: IVONE MIGUELP FP 10/11/2019 02:15:00 P M EDT [facility] Outpatient Attender: IVONE MIGUELP FP 10/10/2019 09:16:02 A M EDT [facility] Outpatient Attender: IVONE Tovar POLITICAL SCIENCE INSTRUCTOR FP 10/10/2019 08:32:00 A M EDT [facility] Outpatient Attender: IVONE MIGUELP FP 10/04/2019 12:39:01 P M EDT [facility] Outpatient Attender: IVONE MIGUELP FP 10/03/2019 08:06:01 A M EDT [facility] Outpatient Attender: IVONE Tovar POLITICAL SCIENCE INSTRUCTOR FP 10/03/2019 08:05:00 A M EDT [facility] Outpatient Attender: IVONE MIGUELP FP 10/02/2019 11:53:08 A M EDT [facility] Outpatient Attender: IVONE MIGUELP FP 07/04/2019 09:52:01 A M EST [facility] Outpatient Attender: Sammie MIGUELP FP 07/04/2019 09:5 1:01 AM EST [facility] Outpatient Attender: Sammie WISEMAN FP 07/04/2019 09:2 1:01 AM [facility]patient Attender: IVONE MIGUELP FP 07/04/2019 09:21:01 A M EST [facility] Outpatient Attender: Sammie MIGUELP FP 07/04/2019 09:2 0:02 AM EST [facility] Attender: IVONE Tovar IVONE FP 07/04/2019 09:20:01 A [facility] Outpatient Attender: IVONE Guy IVONE FP 07/04/2019 09:01:01 A [facility] Outpatient Attender: IVONE Guy IVONE FP 07/04/2019 09:00:01 A [facility] Outpatient Attender: IVONE Guy IVONE FP 06/30/2019 11:48:00 A [facility] Outpatient Attender: IVONE WISEMAN FP 06/27/2019 10:25:01 A [facility] Outpatient Attender: IVONE Guy IVONE FP 06/27/2019 10:24:00 A [facility] Outpatient Attender: IVONE WISEMAN 06/27/2019 09:02:00 A [facility] Outpatient Attender: Sammie WISEMAN 05/23/2019 12:1 6:59 PM [facility] Outpatient Attender: IVONE WISEMAN 05/19/2019 08:02:09 P [facility] Outpatient Attender: Sammie WISEMAN 05/14/2019 07:1 1:00 PM [facility] Medications Medication Brand Name Start Date Product Form Dose Route Admi nistrative Instructions Pharmacy Instructions Status Indications Reaction Description Data Source(s) 500 mg 06/03/2020 12:00:00 AM EST tablet extended release 24 hr 30 TAKE ONE TABLET BY MOUTH EVERY DAY TAKE ONE TABLET BY MOUTH EVERY DAY SOLD: 06/05/2020 [facility] 500 mg 03/25/2020 12:00:00 AM EDT tablet 60 TAKE ONE TABLET BY MOUTH TWICE A DAY NEEDED TAKE ONE TABLET BY MOUTH TWICE A DAY NEEDED SOLD: 03/25/2020 [facility] 500 mg 01/18/2020 12:00:00 AM EDT tablet 60 TAKE ONE TABLET BY MOUTH TWICE A DAY NEEDED TAKE ONE TABLET BY MOUTH TWICE A DAY NEEDED SOLD: 01/22/2020 [facility] 500 mg 01/18/2020 12:00:00 AM EDT tablet extended release 24 hr 30 TAKE ONE TABLET BY MOUTH EVERY DAY TAKE ONE TABLET BY MOUTH EVERY DAY SOLD: 03/25/2020 [facility] 500 mg 01/18/2020 12:00:00 AM EDT tablet extended release 24 hr 30 TAKE ONE TABLET BY MOUTH EVERY DAY TAKE ONE TABLET BY MOUTH EVERY DAY SOLD: 02/21/2020 [facility] 500 mg 01/18/2020 12:00:00 AM EDT tablet 60 TAKE ONE TABLET BY MOUTH TWICE A DAY NEEDED TAKE ONE TABLET BY MOUTH TWICE A DAY NEEDED SOLD: 02/21/2020 [facility] 500 mg 01/18/2020 12:00:00 AM EDT tablet extended release 24 hr 30 TAKE ONE TABLET BY MOUTH EVERY DAY TAKE ONE TABLET BY MOUTH EVERY DAY SOLD: 01/22/2020 [facility] 500 mg 01/18/2020 12:00:00 AM EDT tablet extended release 24 hr 30 TAKE ONE TABLET BY MOUTH EVERY DAY TAKE ONE TABLET BY MOUTH EVERY DAY SOLD: 04/24/2020 [facility] 500 mg 11/06/2019 12:00:00 AM EDT tablet 60 TAKE ONE TABLET BY MOUTH TWICE A DAY NEEDED TAKE ONE TABLET BY MOUTH TWICE A DAY NEEDED SOLD: 11/06/2019 [facility] 500 mg 11/06/2019 12:00:00 AM EDT tablet 60 TAKE ONE TABLET BY MOUTH TWICE A DAY NEEDED TAKE ONE TABLET BY MOUTH TWICE A DAY NEEDED SOLD: 12/12/2019 [facility] 500 mg 09/16/2019 12:00:00 AM EDT tablet extended release 24 hr 30 TAKE ONE TABLET BY MOUTH EVERY DAY TAKE ONE TABLET BY MOUTH EVERY DAY SOLD: 09/18/2019 [facility] 500 mg 09/16/2019 12:00:00 AM EDT tablet extended release 24 hr 30 TAKE ONE TABLET BY MOUTH EVERY DAY TAKE ONE TABLET BY MOUTH EVERY DAY SOLD: 11/14/2019 [facility] 500 mg 09/16/2019 12:00:00 AM EDT tablet extended release 24 hr 30 TAKE ONE TABLET BY MOUTH EVERY DAY TAKE ONE TABLET BY MOUTH EVERY DAY SOLD: 10/16/2019 [facility] 500 mg 09/16/2019 12:00:00 AM EDT tablet extended release 24 hr 30 TAKE ONE TABLET BY MOUTH EVERY DAY TAKE ONE TABLET BY MOUTH EVERY DAY SOLD: 12/12/2019 [facility] 500 mg 05/16/2019 12:00:00 AM EST tablet extended release 24 hr 30 TAKE 1 TABLET BY MOUTH DAILY TAKE 1 TABLET BY MOUTH DAILY SOLD: 06/17/2019 [facility] 500 mg 05/16/2019 12:00:00 AM EST tablet extended release 24 hr 30 TAKE 1 TABLET BY MOUTH DAILY TAKE 1 TABLET BY MOUTH DAILY SOLD: 07/16/2019 [facility] 500 mg 05/16/2019 12:00:00 AM EST tablet extended release 24 hr 30 TAKE 1 TABLET BY MOUTH DAILY TAKE 1 TABLET BY MOUTH DAILY SOLD: 08/15/2019 [facility] 500 mg 05/16/2019 12:00:00 AM EST tablet extended release 24 hr 30 TAKE 1 TABLET BY MOUTH DAILY TAKE 1 TABLET BY MOUTH DAILY SOLD: 05/19/2019 [facility] Insurance Providers Payer name Policy type / Coverage type Policy ID Covered green party ID Covered green party's relationship to [place] Policy [place] Plan Information HUMANA GOLD [id number] SP [id number] SP [id number] [employer] P [id number] S [id number] Medicaid S [id number] S [id number] HUMANA PPO [id number] SP [id number] MEDICARE [id number] SP [id number] T40 Medicare S [id number] S [id number] T40 Medicare P [id number] S [id number] T40 MEDICAID [id number] SP [id number] Medicare P [id number] S [id number] a Medicare P [id number] S [id number] a MEDICAID M [id number] S [id number] MEDICARE C [id number] S [id number] T40 Medicaid S [id number] S [id number] MEDICARE [id number] SP [id number] A Medicaid S [id number] S [id number] MEDICARE [id number] SP [id number] A MEDICAID [id number] SP [id number] MEDICARE [id number] SP [id number] A Medicaid S [id number] S [id number] MEDICAID [id number] SP [id number] MEDICARE [id number] SP [id number] A Problems, Conditions, and Diagnoses Code Display Name Description Problem Type Effective Dates Data Source(s) 599.72 Microscopic hematuria Microscopic hematuria 10/2019 10:30:[address] [facility] V70.0 Encounter for general adult medical exam ination with abnormal findings Encounter for general adult medical examination with abnormal findings 01/04/2020 10:30:[address] [facility] 388.70 Otalgia, bilateral Otalgia, bilateral 0 12:29:[address] [facility] 380.4 Impacted cerumen, bilateral Impacted cerumen, bilatera l 11/06/2019 11:29:[address] [facility] V65.8 Person consulting for explanation of exa mination or test findings Person consulting for explanation of examination or test findings 10/10/2019 09:15:[address] [facility] R03.0 Elevated blood-pressure reading, without diagnosis of hypertension Elevated blood-pressure reading, without diagnosis of hypertension 07/04/2019 09:50:[address] [facility] Results ID Date Data Source [id number] 01/04/2020 09:08:[address] [facility] Measurements & CalculationsHeight: 64 inches (5 ft. 4 in.) 162.56 cm Weight: 133 pounds 60.45 kg Body Mass Index (BMI): 22.91BMI Interpretation: Healthy WeightBody Surface Area (BSA): 1.65Weight Management Education Done (Nutrition/Physical Activity)Vital SignsTemperature: 97.1FPulse Rate: 71 beats/minuteRespiratory Rate: 13 respirations/minuteBlood Pressure: 128/85 O2 Saturation: 97% Vital Signs performed by: Josefa Holliday LPN, January 04, 2020 9:08 AMVital Signs performed by: Josefa Holliday LPN, January 04, 2020 9:08 AMInitial Intake Information From: patientRoom #: 11Infectious Disease / Travel ScreeningRecent travel for you or any close contacts? NoHave you had any close contact with anyone diagnosed with or under investigation for COVID-19 (coronavirus)? NoFever? NoRespiratory symptoms: cough, cold, congestion, shortness of breath, difficulty breathing? NoLoss of smell? NoLoss of taste? NoSmoking, Tobacco, Va ping or Smoke Exposure StatusSmoke Status: never smokerTobacco Use: NoDo you vape? NoPassive Smoke Exposure: NoMenstrual HistoryAny possibility of ? NoComments: menopauseHealthcare HistorySince your last office visit...Have you been admitted to the hospital? NoHave you been to an emergency room (ER) or urgent care clinic? NoHave you seen another healthcare provider? NoHave you seen a dentist? NoIntake performed by: Josefa Holliday LPN, January 04, 2020 9:12 AMRate Your HealthIn general, would you say your health is? GoodPain AssessmentAre you currently having any pain which... You would like your provider to address? Yes Affects your activity level? NoDepression Screening - PHQ-2Over the last two weeks, have you... Had little interest or pleasure in doing things? Not at all Been feeling down, depressed, or hopeless? Not at all PHQ-2 Score: 0Anxiety Screening - SABA-2Over the last two weeks, have you been... Feeling nervous, anxious, or on edge? Not at all Unable to stop or control worrying? Not at all SABA-2 Score: 0Food InsecurityWithin the past year...Did you worry whether your food would run out before you got money to buy more? NoWas there a time when the food you bought didn't last and you didn't have money to get more? NoPain AssessmentLocation: backDuration: 2-3 daysFrequency: OccasionallyCharacter/Quality: aching, dull and pressureIs the pain radiating? NoPRAPARE Sociodemographic Characteristics Race: White, White Ethnicity: Not or Preferred Language: EnglishFamily and Home Address: [address] [place] [address] What is your housing situation today? I have housing Are you worried about losing your housing? NoMoney and Resources In the past year, have you or any family members you live with been unable to get any of the following when it was really needed? Denies Insecurity: food, utilities, clothing, child life therapist, phone, legal services, otherWithin the past year did you worry whether your food would run o ut before you got money to buy more? NoWithin the past year was there a time when the food you bought didn't last and you didn't have money to get more? NoSocial and Emotional Health How often do you see or talk to people that you care about and feel close to? 3 to 5 times a week How stressed are you? Not at allAdditional Optional Domains Do you feel physically and emotionally safe where you live? Yes In the past year, have you been afraid of a partner, ex-partner? NoScreening, Brief Intervention, & Referral to Treatment (SBIRT)Pre- Screening Questions How many times have you have 4 or more drinks in a day? 0How many times have you used an illegal drug or used a prescription medication for a non-medical reason? 0Performed by: Josefa Holliday LPN, January 04, 2020 9:20 AMPatient History Medical History:No known medical historySurgical History:Tubes ligationFamily History:Heart disease (Father)Diabetes (Brother, Sister)Social/Personal History: Chief Complaintannual exam room 11History of Present Illness (HPI)54 YO female here for annual exam and lab results . Pt states taking medications as prescribed with no side effects. Pt states healthy diet and physical activities. Pt states rides bike daily for exercise. Pt denies smoking. Pt denies alcoholism. Pt denies illicit drug use. HPI performed by: Sammie WISEMAN, January 04, 2020 10:07 AMProblem ReviewProblem List was reviewed and/or updated during this visit.Medication Reconciliation & ReviewMedication List was reviewed and/or updated during this visit, including review of any [id number] medications, herbal therapies, and/or supplements.Allergy ReviewAllergy List was reviewed and/or updated during this visit. Patient has no known allergies.Adult Preventive CareProvider Calculated and Reviewed all Clinical Protocols for patient today. Labs/Meds/Other Counseling-Nutrition and Physical Activity:BMI Interpretation: Healthy Weight (01/04/2020) Counseling: Done (01/04/2020) Physical Activity: Done (01/04/2020)Cancer Screening Exclusion from Mammogram protocol.Patient Refused Mammogram 10/10/2019 ColonoscopyReviewed:Previous Comments: has fit test (11/06/2019)Today's Comments: has fit test to do states' Keeps forgetting to do it "Review of Systems General: Denies loss of appetite, chills, dizziness, fatigue, fever, continued fever, headache, feeling ill, sweats, night sweats, sleep disturbances, weight loss. Eyes: Denies blurring of vision, double vision, irritation, discharge, vision loss, eye pain, eye swelling, droopy eyelid, sensitivity to light, redness, itching. Ears/Nose/Throat: Denies eara kathi, ear discharge, ringing in ears, decreased hearing, nasal congestion, nosebleeds, runny nose, sore throat, hoarseness, difficulty swallowing, dry mouth, tooth pain, bleeding gums, swollen glands. Cardiovascular: Denies chest pain, palpitations, feeling faint, trouble breathing w/exertion, SOB upon lying down, SOB at night, peripheral edema, elevated blood pressure, decreased heart rate. Respiratory: Denies cough, difficulty breathing, shortness of breath, excessive sputum, coughing up blood, wheezing, chest pain. Breast: Denies discoloration, tenderness, breast changes, breast lump, nipple discharge. Gastrointestinal: Denies nausea, vomiting, bleeding, burning, itching, irritation, cramps, diarrhea, constipation. Genitourinary: Denies urinary incontinence, pain with urination, burning with urination, urinary frequency, urinary hesitancy, urinary urgency, urinary urgency at night, incomplete emptying, blood in urine. Musculoskeletal: Denies back pain, joint pain, leg pain, other pain-see comments, joint swelling, body aches, muscle aches, muscle cramps, muscle weakness, stiffness, recent injury. Skin: Denies rash, hives, redness, itching, dryness, nail changes, suspicious lesions, athlete's foot, rash on palms, rash on bottom of feet. Neurologic: Denies muscle impairment, weakness, numbness/tingling, seizures, slurred speech, feeling faint, tremors, vertigo, paralysis on one side, paralysis on both sides. Psychiatric: Denies depression, anxiety, memory loss, mental disturbance, suicidal ideation, homicidal ideation, hallucinations, paranoia, feeling stressed, hearing voices. Endocrine: Denies cold intolerance, heat intolerance, excessive thirst, excessive hunger, excessive urination, weight loss, weight gain. Physical ExamGeneral Appearance: well nourished, well hydrated, no acute distressEyes, External: conjunctivae and lids normal, EOMIRespiratory, Auscultation: clear to auscultation bilaterally; no rales, rhonchi, or wheezesRespiratory, Effort: no intercostal retractions or use of accessory musclesCardiovascular, Auscultation: S1, S2 audible; no murmur, rub, or gallop; RRRPeripheral Circulation: no clubbing, cyanosis, edema, or varicositiesAbdomen: soft, non-tender, no masses, bowel sounds normalGait & Station: normalSkin, Inspection: no rashes, lesions, or ulcerationsOrientation: oriented to time, place, and personMood & Affect: no depression, anxiety, or agitationJudgment & Insight: seems intactRate Your HealthIn general, would you say your health is? GoodAssessment & Plan Problems:Added: Encounter for general adult medical examination with abnormal findings (ICD-V70.0) (EZM93-J66.01) Assessment: Instructions: You have had your annual physical exam done today.Microscopic hematuria (ICD-599.72) (ICD10- R31.29) Assessment: Instructions: urine culture ordered. We will contact you if results are concerning.Assessed:Hyperlipidemia, unspecified (YNU93-P80.5) Assessment: Instructions: HDL within normal , LDL still slightly elevated. We will continue to manage this with lifestyle changes for now. Please continue lifestyle changes to include healthy diet and physical activities. Please try to avoid processed foods.Diabetes Mellitus, Type II (ICD-250.00) (ZOT83-S61.9) Assessment: Instructions: Your HGA1c is 5.9. This indicates very well controlled diabetes. Please continue medication as prescribed. Please continue lifestyle changes to include healthy diet and physical activities. Please continue to limit sugars and bbcarbohydrates in your diet. Please try to avoid processed foods.Person consulting for explanation of examination or test findings (ICD-V65.8) (DTE64-I73.2) Assessment: UA +1 plus blood and +1 leuk. patient denies s/s of UTI. will oder culture. pt ecnouraged adequate intake of water and good personal hygiene Instructions: We have reviewed your lab results with you today.Elevated blood-pressure reading, without diagnosis of hypertension (ICD-796.2) (ETM66-L80.0) Assessment: Instructions: Your Blood Pressure is at goal today.Health Screening (ICD-V70.0) (KGA23-Z33.9) Assessment: Instructions: lab results reviewed with you today. We will recheck labs in three months.Patient Instructions/Care Plan: Hyperlipidemia- unspecified: HDL within normal , LDL still slightly elevated. We will continue to manage this with lifestyle changes for now. Please continue lifestyle changes to include healthy diet and physical activities. Please try to avoid processed foods.Diabetes Mellitus- Type II: Your HGA1c is 5.9. This indicates very well controlled diabetes. Please continue medication as prescribed. Please continue lifestyle changes to include healthy diet and physical activities. Please continue to limit sugars and bbcarbohydrates in your diet. Please try to avoid processed foods.Person consulting for explanation of examination or test findings: We have reviewed your lab results with you today.Elevated blood- pressure reading- without diagnosis of hypertension: Your Blood Pressure is at goal today.Health Screening: lab results reviewed with you today. We will recheck labs in three months.Encounter for general adult medical examination with abnormal findings: You have had your annual physical exam done today.Microscopic hematuria: urine culture ordered. We will contact you if results are concerning. Plan developed in collaboration with patient and/or familyMedications:ZYRTEC ALLERGY 10 MG ORAL CAPSULEONETOUCH ULTRA BLUE IN VITRO STRIPONETOUCH FINEPOINT LANCETSONETOUCH ULTRA 2 W/DEVICE KITMETFORMIN HCL ER 500 MG ORAL TABLET EXTENDED RELEASE 24 HOURNAPROXEN 500 MG ORAL TABLETAllergies:No Known Allergies (updated 01/04/2020) Orders:URINALYSIS [CPT- 84898] Urine Culture [CPT-59762] COMP METABOLIC PANEL [CPT-10619] CBC W/DIFF [CPT-59364] HgBA1c [CPT-64579] LIPID PANEL [CPT-10102] Adult - Ofc Vst, EST, Level IV [CPT-19489] Follow-Up Return to clinic: 3 months for follow up Clinical Visit Summary Completed Name Value Range Interpretation Code Description Data Hina rce(s) Supporting Document(s) ID Date Data Source [id number] 01/04/2020 09:00:[address] [facility] Name Value Range Interpretation Code Description Data Hina rce(s) Supporting Document(s) APPEARANCE U CLEAR CLEAR N [facility] SPEC GR URIN 1.009 1.002-1.035 N [place] UA COLOR YELLOW YELLOW N [facility] ID Date Data Source [id number] 01/04/2020 09:00:[address] [facility] Name Value Range Interpretation Code Description Data Hina rce(s) Supporting Document(s) URINECULTRTN NO GROWTH N [facility] ID Date Data Source [id number] 12/27/2019 10:06:[address] [facility] Labs In-House Blood TestsDate/Time Colle cted: December 27, 2019 10:07 AMTest Result Reference Range Normal ValueComments: blood drawn from right AC Pt tolerated well [facility], December 27, 2019 10:07 AMAssessment & Plan Orders:[id number] Vst-Est Level I [CPT-58402] 18420 - Venipuncture [CPT- 42792] Name Value Range Interpretation Code Description Data Hina rce(s) Supporting Document(s) ID Date Data Source [id number] 12/27/2019 10:00:[address] [facility] Name Value Range Interpretation Code Description Data Hina rce(s) Supporting Document(s) HCT 47.3 % 36.0-47.0 H [facility] HGB 15.5 g/dL 12.0-15.5 N [facility] MCH 32.8 G/DL pg 32.0-36.5 N [facility] alon Health MCHC 29.6 PG % 27.0-33.0 N [facility] PLATELETS 280 10 10*3/mm3 150-450 N [facility] RBC 5.23 10 10*6/mm3 4.00-5.40 N [facility] RDW 12.9 % 11.5-14.[address] [facility] WBC TOTAL 6.2 4.0-10.0 N [facility] ID Date Data Source [id number] 12/27/2019 10:00:00 AM EDT [facility] Name Value Range Interpretation Code Description Data Hina rce(s) Supporting Document(s) APPEARANCE U CLEAR CLEAR N [facility] alon Health SPEC GR URIN 1.017 1.002-1.035 N [facility] F amily Health UA COLOR YELLOW YELLOW N [facility] ID Date Data Source [id number] 12/27/2019 10:00:[address] [facility] Name Value Range Interpretation Code Description Data Hina rce(s) Supporting Document(s) HGBA1C 5.9 % N [facility] ID Date Data Source [id number] 12/27/2019 10:00:[address] [facility] Name Value Range Interpretation Code Description Data Hina rce(s) Supporting Document(s) BG FASTING 96 mg/dL 70-100 N [facility] Famil y Health ID Date Data Source [id number] 11/06/2019 10:19:08 AM EDT [facility] Measurements & CalculationsHeight: 64 inches (5 ft. 4 in.) 162.56 cm Weight: 136 pounds 2 oz. 61.88 kg Body Mass Index (BMI): 23.45BMI Interpretation: Healthy WeightBody Surface Area (BSA): 1.66Weight Management Education Done (Nutrition/Physical Activity)Vital SignsTemperature: 97.8FPulse Rate: 70 beats/minuteRespiratory Rate: 15 respirations/minuteBlood Pressure: 137/85 O2 Saturation: 98% Vital Signs performed by: Josefa Holliday LPN, November 06, 2019 10:31 AMVital Signs performed by: Josefa Holliday LPN, November 06, 2019 10:31 AMInitial Intake Information From: patientRoom #: 12Infectious Disease / Travel ScreeningRecent travel for you or any close contacts? NoHave you had any close contact with anyone diagnosed with or under investigation for COVID-19 (coronavirus)? NoFever? NoRespiratory symptoms: cough, cold, congestion, shortness of breath, difficulty breathing? NoLoss of smell? NoLoss of taste? NoSmoking, Tobacco, Vaping or Smoke Exposure StatusSmoke Status: never smokerTobacco Use: NoDo you vape? NoMenstrual HistoryAny possibility of ? NoComments: menopauseHealthcare HistorySince your last office visit...Have you been admitted to the hospital? NoHave you been to an emergency room (ER) or urgent care clinic? NoHave you seen another healthcare provider? NoHave you seen a dentist? NoIntake performed by: Josefa Holliday LPN, November 06, 2019 10:33 AMRate Your HealthIn general, would you say your health is? GoodPain AssessmentAre you currently having any pain which... You would like your provider to address? No Affects your activity level? NoDepression Screening - PHQ-2Over the last two weeks, have you... Had little interest or pleasure in doing things? Not at all Been feeling down, depressed, or hopeless? Not at all PHQ-2 Score: 0Anxiety Screening - SABA-2Over the last two weeks, have you been... Feeling nervous, anxious, or on edge? Not at all Unable to stop or control worrying? Not at all SABA-2 Score: 0Food InsecurityWithin the past year...Did you worry whether your food would run out before you got money to buy more? NoWas there a time when the food you bought didn't last and you didn't have money to get more? NoPatient History Medical History:No known medical historySurgical History:Tubes ligationFamily History:Heart disease (Father)Diabetes (Brother, Sister)Social/Personal History: Chief Complaintt with C/O Ear ache room 12History of Present Illness (HPI)54 YO female here for c/o ear ache Pt states pain started about one week ago. Pt states right ear greater than left. HPI pe rformed by: Sammie WISEMAN, November 06, 2019 11:14 AMProblem ReviewProblem List was reviewed and/or updated during this visit.Medication Reconciliation & ReviewMedication List was reviewed and/or updated during this visit, including review of any ltof-gih-pdbzuty medications, herbal therapies, and/or supplements.Allergy ReviewAllergy List was reviewed and/or updated during this visit. Patient has no known allergies.Adult Preventive CareProvider Calculated and Reviewed all Clinical Protocols for patient today. Labs/Meds/Other Counseling-Nutrition and Physical Activity:BMI Interpretation: Healthy Weight (11/06/2019) Counseling: Done (11/06/2019) Physical Activity: Done (11/06/2019)Cancer Screening Exclusion from Mammogram protocol.Patient Refused Mammogram 10/10/2019 ColonoscopyReviewed:Previous Comments: still needs to do fit test (10/10/2019)Today's Comments: has fit test Review of Systems General: Denies loss of appetite, chills, dizziness, fatigue, fever, continued fever, headache, feeling ill, sweats, night sweats, sleep disturbances, weight loss. Eyes: Denies blurring of vision, double vision, irritation, discharge, vision loss, eye pain, eye swelling, droopy eyelid, sensitivity to light, redness, itching. Ears/Nose/Throat: Denies earache, ear discharge, ringing in ears, decreased hearing, nasal congestion, nosebleeds, runny nose, sore throat, hoarseness, difficulty swallowing, dry mouth, tooth pain, bleeding gums, swollen glands. Cardiovascular: Denies chest pain, palpitations, feeling faint, trouble breathing w/exertion, SOB upon lying down, SOB at night, peripheral edema, elevated blood pressure, decreased heart rate. Respiratory: Denies cough, difficulty breathing, shortness of breath, excessive sputum, coughing up blood, wheezing, chest pain. Breast: Denies discoloration, tenderness, breast changes, breast lump, nipple discharge. Gastrointestinal: Denies nausea, vomiting, bleeding, burning, itching, irritation, cramps, diarrhea, constipation. Genitourinary: Denies urinary incontinence, pain with urination, burning with urination, urinary frequency, urinary hesitancy, urinary urgency, urinary urgency at night, incomplete emptying, blood in urine. Musculoskeletal: Denies back pain, joint pain, leg pain, other pain-see comments, joint swelling, body aches, muscle aches, muscle cramps, muscle weakness, stiffness, recent injury. Skin: Denies rash, hives, redness, itching, dryness, nail changes, suspicious lesions, athlete's foot, rash on palms, rash on bottom of feet. Neurologic: Denies muscle impairment, weakness, numbness/tingling, seizures, slurred speech, feeling faint, tremors, vertigo, paralysis on one side, paralysis on both sides. Psychiatric: Denies depression, anxiety, memory loss, mental disturbance, suicidal ideation, homicidal ideation, hallucinations, paranoia, feeling stressed, hearing voices. Endocrine: Denies cold intolerance, heat intolerance, excessive thirst, excessive hunger, excessive urination, weight loss, weight gain. Physical ExamGeneral Appearance: well nourished, well hydrated, no acute distressEyes, External: conjunctivae and lids normal, EOMIOtoscopy: impacted ear canal, bilat, right greater than left- improved ear canal flushed bilat. Pharynx: tongue normal, posterior pharynx without erythema or exudate, no thrush/aphthous ulcerRespiratory, Auscultation: clear to auscultation bilaterally; no rales, rhonchi, or wheezesRespiratory, Effort: no intercostal retractions or use of accessory musclesCardiovascular, Auscultation: S1, S2 audible; no murmur, rub, or gallop; RRRPeripheral Circulation: no clubbing, cya nosis, edema, or varicositiesAbdomen: soft, non-tender, no masses, bowel sounds normalGait & Station: normalSkin, Inspection: no rashes, lesions, or ulcerationsOrientation: oriented to time, place, and personMood & Affect: no depression, anxiety, or agitationJudgment & Insight: intactRate Your HealthIn general, would you say your health is? GoodAssessment & Plan Problems:Added: Otalgia, bilateral (ICD-388.70) (JQI63-X74.03) Assessment: Instructions: We have sent a prescription to your pharmacy today. Please take as prescribed. . Please try to keep ear canal clean and dry.Impacted cerumen, bilateral (ICD- 380.4) (ZPJ00-D74.23) Assessment: Instructions: ear wax removed bilateral ear canal. please try to keep clean and dry. please avoid use of Qtips.Impacted cerumen, bilateral (ICD-380.4) (CSE88-O24.23) Assessment: Ear canal flusged bial with warm water.Assessed:Person consulting for explanation of examination or test findings (ICD-V65.8) (GII49-C89.2) Assessment: Instructions: We have reviewed your lab results with you today. HGA1c 6.4. , this indicates well controlled type 2 diabetes.Person consulting for explanation of examination or test findings (ICD-V65.8) (UQD72-C32.2) Assessment: Lab results reviewed with you today.Patient Instructions/Care Plan: Otalgia- bilateral: We have sent a prescription to your pharmacy today. Please take as prescribed. . Please try to keep ear canal clean and dry.Impacted cerumen- bilateral: ear wax removed bilateral ear canal. please try to keep clean and dry. please avoid use of Qtips.Person consulting for explanation of examination or test findings: We have reviewed your lab results with you today. HGA1c 6.4. , this indicates well controlled type 2 diabetes. Plan developed in collaboration with patient and/or familyMedications:ZYRTEC ALLERGY 10 MG ORAL CAPSULEONETOUCH ULTRA BLUE IN VITRO STRIPONETOUCH FINEPOINT LANCETSONETOUCH ULTRA 2 W/DEVICE KITMETFORMIN HCL ER 500 MG ORAL TABLET EXTENDED RELEASE 24 HOURNAPROXEN 500 MG ORAL TABLETMedication Changes:Refilled:NAPROXEN 500 MG ORAL TABLET-take one tablet by mouth twice daily as needed Qty: 60[Tablet] Refills: 1 Method: ElectronicChanged:From: ORAL NAPROSYN 500 MG ORAL TABLET Qty: [id number] Refills: 60[Tablet] To: NAPROXEN 500 MG ORAL TABLET-take one tablet by mouth twice daily as needed Qty: 60[Tablet] Refills: 1Allergies:No Known Allergies (updated 11/06/2019) Orders:Ear Wax Removal [CPT-40381] Adult - Ofc Vst, EST, Level III [CPT-79187] Follow-Up Return to clinic: as sceduled and as needed Clinical Visit Summary CompletedMedications:NAPROXEN 500 MG ORAL TABLET (NAPROXEN) take one tablet by mouth twice daily as needed #60[Tablet] x 1 Route:ORAL Entered and Authorized by: Sammie WISEMAN Method used: Electronically to [facility] (retail) [id number] [place] [address] Note to Pharmacy: Route: ORAL; Indications: IMPACTED CERUMEN, BILATERAL;OTALGIA, BILATERAL RxID: [id number] signed by Sammie WISEMAN on 11/11/2019 at 7:10 PM Name Value Range Interpretation Code Description Data Hina rce(s) Supporting Document(s) ID Date Data Source [id number] 10/10/2019 08:18:[address] [facility] Measurements & CalculationsHeight: 64 inches (5 ft. 4 in.) 162.56 cm Weight: 139 pounds 63.18 kg Body Mass Index (BMI): 23.95BMI Interpretation: Healthy WeightBody Surface Area (BSA): 1.68Weight Management Education Done (Nutrition/Physical Activity)Vital SignsTemperature: 97.9FPulse Rate: 82 beats/minuteRespiratory Rate: 14 respirations/minuteBlood Pressure: 132/83 O2 Saturation: 9% Vital Signs performed by: Josefa Holliday LPN, October 10, 2019 8:18 AMVital Signs performed by: Josefa Holliday LPN, October 10, 2019 8:18 AMInitial Intake Information From: patientRoom #: 14Infectious Disease / Travel ScreeningRecent travel for you or any close contacts? NoHave you had any close contact with anyone diagnosed with or under investigation for COVID-19 (coronavirus)? NoFever? NoRespiratory symptoms: cough, cold, congestion, shortness of breath, difficulty breathing? NoLoss of smell? NoLoss of taste? NoSmoking, Tobacco, Vaping or Sm parker Exposure StatusSmoke Status: never smokerTobacco Use: NoDo you vape? NoPassive Smoke Exposure: NoMenstrual HistoryAny possibility of ? NoComments: MenopauseHealthcare HistorySince your last office visit...Have you been admitted to the hospital? NoHave you been to an emergency room (ER) or urgent care clinic? NoHave you seen another healthcare provider? NoHave you seen a dentist? NoIntake performed by: Josefa Holliday LPN, October 10, 2019 8:29 AMRate Your HealthIn general, would you say your health is? GoodPain AssessmentAre you currently having any pain which... You would like your pro vider to address? No Affects your activity level? NoDepression Screening - PHQ-2Over the last two weeks, have you... Had little interest or pleasure in doing things? Not at all Been feeling down, depressed, or hopeless? Not at all PHQ-2 Score: 0Anxiety Screening - SABA-2Over the last two weeks, have you been... Feeling nervous, anxious, or on edge? Not at all Unable to stop or control worrying? Not at all SABA-2 Score: 0Food InsecurityWithin the past year...Did you worry whether your food would run out before you got money to buy more? NoWas there a time when the food you bought didn't last and you didn't have money to get more? NoScreening, Brief Intervention, & Referral to Treatment (SBIRT)Pre-Screening Questions How many times have you have 4 or more drinks in a day? 0How many times have you used an illegal drug or used a prescription medication for a non-medical reason? 0Performed by: Josefa Holliday LPN, October 10, 2019 8:30 AMPatient History Medical History:No known medical historySurgical History:Tubes ligationFamily History:Heart disease (Father)Diabetes (Brother, Sister)Social/Personal History: Chief Complaintfollow-up visit lab results room 12History of Present Illness (HPI)54 YO female here for follow up on labs Pt states healthy diet and physical activities. Pt states taking medications as prescribed without side effects. Pt denies smoking. Pt denies alcoholism. Pt den ies illicit drug use. HPI performed by: Sammie WISEMAN, October 10, 2019 9:09 AMProblem ReviewProblem List was reviewed and/or updated during this visit.Medication Reconciliation & ReviewMedication List was reviewed and/or updated during this visit, including review of any hgvz-eir-kuvivau medications, herbal therapies, and/or supplements.Allergy ReviewAllergy List was reviewed and/or updated during this visit. Patient has no known allergies.Adult Preventive CareLabs/Meds/Other Counseling-Nutrition and Physical Activity:BMI Interpretation: Healthy Weight (10/10/2019) Counseling: Done (10/10/2019) Physical Activity: Done (10/10/2019)Cancer Screening Mammogram Reviewed:Exclusion from Mammogram protocol.Patient Refused Mammogram 10/10/2019 Previous Comments: pt refuses she passed out her last one (09/07/2018)Today's Comments: pt states passed out will not do againPap Smear/HPV TestingReviewed: Patient Refused Pap SmearPrevious Comments: just had done a few months ago (03/08/2019)Today's Comments: pap smear done ColonoscopyReviewed:Previous Comments: pt has a fit test (03/08/2019)Today's Comments: still needs to do fit testReview of Systems General: Denies loss of appetite, chills, dizziness, fatigue, fever, continued fever, headache, feeling ill, sweats, night sweats, sleep disturbances, weight loss. Eyes: Denies blurring of vision, double vision, irritation, discharge, vision loss, eye pain, eye swelling, droopy eyelid, sensitivity to light, redness, itching. Ears/Nose/Throat: Denies earache, ear discharge, ringing in ears, decreased hearing, nasal congestion, nosebleeds, runny nose, sore throat, hoarseness, difficulty swallowing, dry mouth, tooth pain, bleeding gums, swollen glands. Cardiovascular: Denies chest pain, palpitations, feeling faint, trouble breathing w/exertion, SOB upon lying down, SOB at night, peripheral edema, elevated blood pressure, decreased heart rate. Respiratory: Denies cough, difficulty breathing, shortness of breath, excessive sputum, coughing up blood, wheezing, chest pain. Breast: Denies discoloration, tenderness, breast changes, breast lump, nipple discharge. Gastrointestinal: Denies nausea, vomiting, bleeding, burning, itching, irritati on, cramps, diarrhea, constipation. Genitourinary: Denies urinary incontinence, pain with urination, burning with urination, urinary frequency, urinary hesitancy, urinary urgency, urinary urgency at night, incomplete emptying, blood in urine, pelvic pain. Musculoskeletal: Denies back pain, joint pain, leg pain, other pain-see comments, joint swelling, body aches, muscle aches, muscle cramps, muscle weakness, stiffness, recent injury. Skin: Denies rash, hives, redness, itching, dryness, nail changes, suspicious lesions, athlete's foot, rash on palms, rash on bottom of feet. Neurologic: Denies muscle impairment, weakness, numbness/tingling, seizures, slurred speech, feeling faint, tremors, vertigo, paralysis on one side, paralysis on both sides. Psychiatric: Denies depression, anxiety, memory loss, mental disturbance, suicidal ideation, homicidal ideation, hallucinations, paranoia, feeling stressed, hearing voices. Endocrine: Denies cold intolerance, heat intolerance, excessive thirst, exces sive hunger, excessive urination, weight loss, weight gain. Physical ExamGeneral Appearance: well nourished, well hydrated, no acute distressEyes, External: conjunctivae and lids normal, EOMIRespiratory, Auscultation: clear to auscultation bilaterally; no rales, rhonchi, or wheezesRespiratory, Effort: no intercostal retractions or use of accessory musclesCardiovascular, Auscultation: S1, S2 audible; no murmur, rub, or gallop; RRRPeripheral Circulation: no clubbing, cyanosis, edema, or varicositiesAbdomen: soft, non-tender, no masses, bowel sounds normalGait & Station: normalSkin, Inspection: no rashes, lesions, or ulcerationsOrientation: oriented to time, place, and personMood & Affect: no depression, anxiety, or agitationJudgment & Insight: intactRate Your HealthIn general, would you say your health is? GoodAssessment & Plan Problems:Added: Person consulting for explanation of examination or test findings (ICD-V65.8) (FZU34-L60.2) Assessment: Instructions: We have reviewed your lab results with you today.Assessed:Elevated blood-pressure reading, without diagnosis of hypertension (ICD-796.2) (JPN80-Y69.0) Assessment: Instructions: Your Blood pressure is at goal today.Hyperlipidemia, unspecified (JJO95-U35.5) Assessment: Instructions: LDL still slightly elevated. We will continue to manage this with lifestyle changes for now. Please continue lifestyle changes to include healthy diet and physical activities. Please try to avoid processed foods.Diabetes Mellitus, Type II (ICD-250.00) (VND46-A42.9) Assessment: Instructions: Your HGA1c is 6.4. This indicates very well controlled diabetes. Please continue medication as prescribed. Please continue lifestyle changes to include healthy diet and physical activities. Please continue to limit sugars and bbcarbohydrates in your diet. Please try to avoid processed foods.Health Screening (ICD-V70.0) (INY87-D63.9) Assessment: Instructions: lab results reviewed with you today. We will recheck labs in three months.Patient Instructions/Care Plan: Elevated blood-pressure reading- without diagnosis of hypertension: Your Blood pressure is at goal today.Hyperlipidemia- unspecified: LDL still slightly elevated. We will continue to manage this with lifestyle changes for now. Please continue lifestyle changes to include healthy diet and physical activities. Please try to avoid processed foods.Diabetes Mellitus- Type II: Your HGA1c is 6.4. This indicates very well controlled diabetes. Please continue medication as prescribed. Please continue lifestyle changes to include healthy diet and physical activities. Please continue to limit sugars and bbcarbohydrates in your diet. Please try to avoid processed foods.Person consulting for explanation of examination or test findings: We have reviewed your lab results with you today.Health Screening: lab results reviewed with you today. We will recheck labs in three months. Plan developed in collaboration with patient and/or familyMedications:ZYRTEC ALLERGY 10 MG ORAL CAPSULEONETOUCH ULTRA BLUE IN VITRO STRIPONETOUCH FINEPOINT LANCETSONETOUCH ULTRA 2 W/DEVICE KITMETFORMIN HCL ER 500 MG ORAL TABLET EXTENDED RELEASE 24 HOURNAPROSYN 500 MG ORAL TABLETAllergies:No Known Allergies (updated 10/10/2019) Orders:COMP METABOLIC PANEL [CPT-36225] CBC W/DIFF [CPT-74120] HgBA1c [CPT- 86856] LIPID PANEL [CPT-36610] URINALYSIS [CPT-50317] Adult - Ofc Vst, EST, Level IV [CPT-30803] Follow-Up Return to clinic: 3 months for follow up Clinical Visit Summary Completed Name Value Range Interpretation Code Description Data Hina rce(s) Supporting Document(s) ID Date Data Source [id number] 10/03/2019 09:25:[address] [facility] Labs In-House Blood TestsDate/Time Colle cted: October 03, 2019 9:26 AMTest Result Reference Range Normal ValueComments: labs drawn in office. taken from R [facility] while pt was laying down. tolerated well. Sunny Palacio MA, October 03, 2019 9:26 AMAssessment & Plan Orders:[id number] Vst-Est Level I [CPT- 50892] [id number] - Venipuncture [CPT-33328] Name Value Range Interpretation Code Description Data Hina rce(s) Supporting Document(s) ID Date Data Source [id number] 10/03/2019 08:25:[address] [facility] Name Value Range Interpretation Code Description Data Hina rce(s) Supporting Document(s) HCT 44.0 % 36.0-47.0 N [facility] HGB 14.5 g/dL 12.0-15.5 N [facility] MCH 33.0 G/DL pg 32.0-36.5 N [facility] MCHC 29.7 PG % 27.0-33.0 N [facility] PLATELETS 301 10 10*3/mm3 150-450 N [facility] RBC 4.88 10 10*6/mm3 4.00-5.[address] [facility] RDW 12.6 % 11.5-14.5 [facility] WBC TOTAL 7.8 4.0-10.[address] [facility] ID Date Data Source [id number] 10/03/2019 08:25:[address] [facility] Name Value Range Interpretation Code Description Data Hina rce(s) Supporting Document(s) BG FASTING 130 mg/dL 70-100 H [facility] ID Date Data Source [id number] 10/03/2019 08:25:[address] [facility] Name Value Range Interpretation Code Description Data Hina rce(s) Supporting Document(s) HGBA1C 6.4 % [facility] ID Date Data Source [id number] 07/04/2019 09:04:38 AM EST [facility] Measurements & CalculationsHeight: 64 inches (5 ft. 4 in.) 162.56 cm Weight: 141 pounds 64.09 kg Body Mass Index (BMI): 24.29BMI Interpretation: Healthy WeightBody Surface Area (BSA): 1.69Weight Management Education Done (Nutrition/Physical Activity)Vital SignsTemperature: 98.2FPulse Rate: 65 beats/minuteRespiratory Rate: 18 respirations/minuteBlood Pressure: 142/86 Vital Signs performed by: Niesha Hewitt MA, July 04, 2019 9:11 AMMultiple Vital SignsInitial BP: 148/89Vitals #2BP: 142/86 (primary)Initial Intake Information from: patientRoom #: 14Infectious Disease- Travel Have you or your sexual partner travelled outside of the country recently? NoSmoking, Tobacco or Smoke Exposure StatusSmoke Status: never smokerTobacco Use: NoPassive Smoke Exposure: NoMenstrual HistoryAny possibility of ? NoHealthcare HistorySince your last office visit...Have you been admitted to the hospital? NoHave you been to an emergency room (ER) or urgent care clinic? No - quikmed pain, back pain a month agoHave you seen another healthcare provider? No - quick medHave you seen a dentist? NoIntake performed by: Niesha Hewitt MA, July 04, 2019 9:08 AMRate Your HealthIn general, would you say your health is? Very GoodPain AssessmentAre you currently having any pain which... You would like your provider to address? No Affects your activity level? NoDepression Screening - PHQ-2Over the last two weeks, have you... Had little interest or pleasure in doing things? Not at all Been feeling down, depressed, or hopeless? Not at all PHQ-2 Score: 0Anxiety Screening - SABA-2Over the last two weeks, have you been... Feeling nervous, anxious, or on edge? Not at all Unable to stop or control worrying? Not at all SABA-2 Score: 0Infectious Disease- Travel Cont. Any possibility of ? NoScreening, Brief Intervention, & Referral to Treatment (SBIRT)Pre-Screening Questions How many times have you have 4 or more drinks in a day? 0How many times have you used an illegal drug or used a prescription medication for a non-medical reason? 0Performed by: Niesha Hewitt MA, July 04, 2019 9:08 AMPatient History Medical History:No known medical historySurgical History:Tubes ligationFamily History:Heart disease (Father)Diabetes (Brother, Sister)Social/Personal History: Smoking Status: never smokerChief Complaintdm, lab resultsHistory of Present Illness (HPI)54 yo female here today for follow up visit and review of lab reults. Pt states healthy diet and physical activities. Pt statesa waking for exercise. Pt states medication compliance.Pt denies smoking, Pt denies alcoholism. Pt denies illicit drug use. HPI performed by: Sammie WISEMAN, July 04, 2019 9:24 AMProblem ReviewProblem List was reviewed and/or updated during this visit.Medication Reconciliation & ReviewMedication List was reviewed and/or updated during this visit, including review of any ohia-uup-rxtyfeo medications, herbal therapies, and/or supplements.Allergy ReviewAllergy List was reviewed and/or updated during this visit.Adult Preventive CareProvider Calculated and Reviewed all Clinical Protocols for patient today. Labs/Meds/Other Counseling-Nutrition and Physical Activity:BMI Interpretation: Healthy Weight (07/04/2019) Counseling: Done (07/04/2019) Physical Activity: Done (07/04/2019)Cancer Screening Exclusion from Mammogram protocol. Colorectal Screening: Patient refused colorectal screeningReview of Systems General: Denies loss of appetite, chills, dizziness, fatigue, fever, continued fever, headache, feeling ill, sweats, night sweats, sleep disturbances, weight loss. Eyes: Denies blurring of vision, double vision, irritation, discharge, vision loss, eye pain, eye swelling, droopy eyelid, sensitivity to light, redness, itching. Ears/Nose/Throat: Denies earache, ear discharge, ringing in ears, decreased hearing, nasal congestion, nosebleeds, runny nose, sore throat, hoarseness, difficulty swallowing, dry ankit th, tooth pain, bleeding gums, swollen glands. Cardiovascular: Denies chest pain, palpitations, feeling faint, trouble breathing w/exertion, SOB upon lying down, SOB at night, peripheral edema, elevated blood pressure, decreased heart rate. Respiratory: Denies cough, difficulty breathing, shortness of breath, excessive sputum, coughing up blood, wheezing, chest pain. Gastrointestinal: Denies nausea, vomiting, bleeding, burning, itching, irritation, cramps, diarrhea. Genitourinary: Denies urinary incontinence, pain with urination, burning with urination, urinary frequency, urinary hesitancy, urinary urgency, urinary urgency at night, incomplete emptying, blood in urine, pelvic pain. Musculoskeletal: Denies back pain, joint pain, leg pain, joint swelling, body aches, muscle aches, muscle cramps, muscle weakness, stiffness, recent injury. Skin: Denies rash, hives, redness, itching, dryness, nail changes, suspicious lesions, athlete's foot, rash on palms, rash on bottom of feet. Neurologic: D enies muscle impairment, weakness, numbness/tingling, seizures, slurred speech, feeling faint, tremors, vertigo, paralysis on one side, paralysis on both sides. Psychiatric: Denies depression, anxiety, memory loss, mental disturbance, suicidal ideation, homicidal ideation, hallucinations, paranoia, feeling stressed, hearing voices. Endocrine: Denies cold intolerance, heat intolerance, excessive thirst, excessive hunger, excessive urination, weight loss, weight gain. Heme/Lymphatic: Denies abnormal bruising, bleeding, enlarged lymph nodes. Physical ExamGeneral Appearance: well nourished, well hydrated, no acute distressEyes, External: conjunctivae and lids normal, EOMIRespiratory, Auscultation: clear to auscultation bilaterally; no rales, rhonchi, or wheezesRespiratory, Effort: no intercostal retractions or use of accessory musclesCardiovascular, Auscultation: S1, S2 audible; no murmur, rub, or gallop; RRRPeripheral Circulation: no clubbing, cyanosis, edema, or varicositiesAbdomen: soft, non-tender, no masses, bowel sounds normalGait & Station: normalSkin, Inspection: no rashes, lesions, or ulcerationsOrientation: oriented to time, place, and personMood & Affect: no depression, anxiety, or agitationJudgment & Insight: intactRate Your HealthIn general, would you say your health is? Very GoodAssessment & Plan Problems:Added: Elevated blood-pressure reading, without diagnosis of hypertension (ICD-796.2) (FVM89-A81.0) Assessment: Instructions: Your Blood pressure is elevated today. Please continue lifestyle changes to include healthy diet and physical activities. Please try to avoid processed foods.Please try to avoid processed foods.Assessed:Hyperlipidemia, unspecified (SKA15-P28.5) Assessment: Instructions: LDL slightly elevated. We will continue to manage this with lifestyle changes for now. Please continue lifestyle changes to include healthy diet and physical activities. Please try to avoid processed foods.Diabetes Mellitus, Type II (ICD-250.00) (ETY83-T19.9) Assessment: Instructions: Your HGA1c is 6.4. This indicates very well controlled diabetes. Please continue medication as prescribed. Please continue lifestyle changes to include healthy diet and physical activities. Please continue to limit sugars and bbcarbohydrates in your diet. Please try to avoid processed foods.Health Screening (ICD-V70.0) (KJZ57-I69.9) Assessment: Instructions: We have reviewed your lab results for you today. Please continue medications as prescribed. Please continue lifestyle changes to include healthy diet and physical activities.Assessment not Saved Health Screening (ICD10- Z13.9): labs reviewed today. BP elevated today Will repeat labs iin three months prior to next visit. Patient Instructions/Care Plan: Hyperlipidemia- unspecified: LDL slightly elevated. We will continue to manage this with lifestyle changes for now. Please continue lifestyle changes to include healthy diet and physical activities. Please try to avoid processed foods.Diabetes Mellitus- Type II: Your HGA1c is 6.4. This indicates very well controlled diabetes. Please continue medication as prescribed. Please continue lifestyle changes to include healthy diet and physical activities. Please continue to limit sugars and bbcarbohydrates in your diet. Please try to avoid processed foods.Health Screening: We have reviewed your lab results for you today. Please continue medications as prescribed. Please continue lifestyle changes to include healthy diet and physical activities.Elevated blood-pressure reading- without diagnosis of hypertension: Your Blood pressure is elevated today. Please continue lifestyle changes to include healthy diet and physical activities. Please try to avoid processed foods.Please try to avoid processed foods. Plan developed in collaboration with patient and/or familyMedications:ZYRTEC ALLERGY 10 MG ORAL CAPSULEONETOUCH ULTRA BLUE IN VITRO STRIPONETOUCH Crittercism LANCETSONETOUCH ULTRA 2 W/DEVICE KITMETFORMIN HCL ER 500 MG ORAL TABLET EXTENDED RELEASE 24 HOURNAPROSYN 500 MG ORAL TABLETAllergies:No Known Allergies (updated 11/23/2017) Orders:LIPID PANEL [CPT-97552] HgBA1c [CPT- 45363] CBC W/DIFF [CPT-80185] COMP METABOLIC PANEL [CPT-02406] Adult - Ofc Vst, EST, Level IV [CPT-62200] Follow-Up Return to clinic: 3 months for follow up Additional Follow-Up: fasting labs prior to next visitClinical Visit Summary Completed Name Value Range Interpretation Code Description Data Hina rce(s) Supporting Document(s) ID Date Data Source [id number] 06/27/2019 09:29:03 AM EST [facility] Labs In-House Blood TestsDate/Time Colle cted: June 27, 2019 9:29 AMTest Result Reference Range Normal ValueComments: blood draw done in office done in the right ac tolerated well Aj Nieves MA, June 27, 2019 9:29 AMAssessment & Plan Orders:[id number] Vst-Est Level I [CPT-11850] [id number] - Venipuncture [CPT-92485] Name Value Range Interpretation Code Description Data Hina rce(s) Supporting Document(s) ID Date Data Source [id number] 06/27/2019 09:10:[address] [facility] Name Value Range Interpretation Code Description Data Hina rce(s) Supporting Document(s) HGBA1C 6.4 % N [facility] ID Date Data Source [id number] 06/27/2019 09:10:[address] [facility] Name Value Range Interpretation Code Description Data Hina rce(s) Supporting Document(s) HCT 46.0 % 36.0-47.0 N [facility] HGB 15.1 g/dL 12.0-15.[address] [facility] MCH 32.8 G/DL pg 32.0-36.[address] [facility] MCHC 29.7 PG % 27.0-33.[address] [facility] PLATELETS 292 10 10*3/mm3 150-[address] [facility] RBC 5.08 10 10*6/mm3 4.00-5.[address] [facility] RDW 12.9 % 11.5-14.[address] [facility] WBC TOTAL 6.2 4.0-10.[address] [facility] ID Date Data Source [id number] 06/27/2019 09:10:[address] [facility] Name Value Range Interpretation Code Description Data Hina rce(s) Supporting Document(s) BG FASTING 108 mg/dL 70-100 H [facility] Procedure
[2020-06-30] MEDS ORDERED: METF-838 PO (06:28)
[2020-06-30] MEDS ORDERED: NAPR-885 PO (06:28)
[2020-06-30 07:04] LABS: BASO % 0.3 % (0.0-1.0); EOS # 0.1 10^3/uL (0.0-0.5); EOS % 0.9 % (0.0-3.0); HEMATOCRIT 32.2 % (36.0-47.0); HEMOGLOBIN 10.6 g/dl (12.0-15.5); LYMPH # 0.8 10^3/uL (1.5-5.0); LYMPH % 11.2 % (24.0-44.0); MEAN CORPUSCULAR HEMOGLOBIN 29.4 pg (27.0-33.0); MEAN CORPUSCULAR HGB CONC 32.9 g/dl (32.0-36.5); MEAN CORPUSCULAR VOLUME 89.4 fl (80.0-96.0); MONO # 0.5 10^3/uL (0.0-0.8); MONO % 6.6 % (0.0-5.0); NEUTROPHILS # 5.6 10^3/uL (1.5-8.5); NEUTROPHILS % 80.7 % (36.0-66.0); PLATELET COUNT, AUTOMATED 179 10^3/uL (150-450); WHITE BLOOD COUNT 6.9 10^3/uL (4.0-10.0)
[2020-06-30 07:42] LABS: BLOOD UREA NITROGEN 12 MG/DL (7-18); CALCIUM LEVEL 5.7 MG/DL (8.5-10.1); CARBON DIOXIDE LEVEL 16 MEQ/L (21-32); CHLORIDE LEVEL 121 MEQ/L (98-107); CK-MB VALUE MASS 1.1 NG/ML (<3.6); CPK CREATINE PHOSPHOKINASE 27 U/L (26-192); CREATININE FOR GFR 0.38 MG/DL (0.55-1.30); GLOMERULAR FILTRATION RATE > 60.0 (>51); GLUCOSE, FASTING 131 MG/DL (70-100); MB/CK RELATIVE INDEX 4.07 (< OR =4); POTASSIUM SERUM 3.1 MEQ/L (3.5-5.1); SODIUM LEVEL 151 MEQ/L (136-145); TROPONIN I < 0.02 NG/ML (< 0.10)
--- NOTE | 2020-06-30 07:52 | REPVR ---
PROCEDURE INFORMATION: Exam: CT Head Without Contrast Exam date and time: 06/30/2020 7:17 AM Age: 55 years old Clinical indication: Syncope and collapse TECHNIQUE: Imaging protocol: Computed tomography of the head without contrast. Radiation optimization: All CT scans at this facility use at least one of these dose optimization techniques: automated exposure control; mA and/or kV adjustment per patient size (includes targeted exams where dose is matched to clinical indication); or iterative reconstruction. COMPARISON: No relevant prior studies available. FINDINGS: Brain: Normal. No hemorrhage. Unremarkable white matter. No mass effect. Cerebral ventricles: No ventriculomegaly. Bones/joints: Unremarkable. No acute fracture. Paranasal sinuses: Visualized sinuses are unremarkable. No fluid levels. Mastoid air cells: Visualized mastoid air cells are well aerated. Soft tissues: Unremarkable. IMPRESSION: No acute intracranial abnormality. Electronically signed by: Guerita Richter On 06/30/2020 07:52:31 AM
[2020-06-30] MEDS ORDERED: valACYclovir HCL 500 MG TAB PO ONE (08:00)
--- NOTE | 2020-06-30 08:07 | REP ---
INDICATION: Syncope/near-syncope. COMPARISON: Comparison chest x-ray 05/26/2018. TECHNIQUE: Portable upright AP chest radiograph. FINDINGS: The lungs are well inflated and free of infiltrate. Pleural angles are sharp. Heart size is normal. Pulmonary vasculature is not increased. Monitoring electrodes are seen. IMPRESSION: No active disease. <Electronically signed by Raghu Zayas > 06/30/20 0802
--- OUTSIDE RECORDS SUMMARY | 2020-06-30 08:07 | CCD ---
Author Author [facility] Organization [facility] Address Unknown Phone Unavailable Care Team Providers Care Scale Clerk Name Role Phone Guy, Sammie FOREIGN LEGAL CONSULTANT FOREIGN LEGAL CONSULTANT Unavailable Unavailable Guy, A Sammie FOREIGN LEGAL CONSULTANT Unavailable Unavailable Guy, A Sammie FOREIGN LEGAL CONSULTANT Unavailable Unavailable Guy, A Sammie FOREIGN LEGAL CONSULTANT Unavailable Unavailable Guy, A Sammie FOREIGN LEGAL CONSULTANT Unavailable Unavailable Guy, A Sammie FOREIGN LEGAL CONSULTANT Unavailable Unavailable Guy, A Sammie FOREIGN LEGAL CONSULTANT Unavailable Unavailable Guy, A Sammie FOREIGN LEGAL CONSULTANT Unavailable Unavailable Guy, A Sammie FOREIGN LEGAL CONSULTANT Unavailable Unavailable Guy, A Sammie FOREIGN LEGAL CONSULTANT Unavailable Unavailable Guy, A Sammie FOREIGN LEGAL CONSULTANT Unavailable Unavailable Guy, A Sammie FOREIGN LEGAL CONSULTANT Unavailable Unavailable Guy, A Sammie FOREIGN LEGAL CONSULTANT Unavailable Unavailable Guy, A Sammie FOREIGN LEGAL CONSULTANT Unavailable Unavailable Guy, A Sammie FOREIGN LEGAL CONSULTANT Unavailable Unavailable Guy, A Sammie FOREIGN LEGAL CONSULTANT Unavailable Unavailable Guy, A Sammie FOREIGN LEGAL CONSULTANT Unavailable Unavailable Guy, A Sammie FOREIGN LEGAL CONSULTANT Unavailable Unavailable Guy, A Sammie FOREIGN LEGAL CONSULTANT Unavailable Unavailable Guy, A Sammie FOREIGN LEGAL CONSULTANT Unavailable Unavailable Guy, A Sammie FOREIGN LEGAL CONSULTANT Unavailable Unavailable Guy, A Sammie FOREIGN LEGAL CONSULTANT Unavailable Unavailable Guy, A Sammie FOREIGN LEGAL CONSULTANT Unavailable Unavailable Guy, A Sammie FOREIGN LEGAL CONSULTANT Unavailable Unavailable Guy, A Sammie FOREIGN LEGAL CONSULTANT Unavailable Unavailable Guy, A Sammie FOREIGN LEGAL CONSULTANT Unavailable Unavailable Guy, A Sammie FOREIGN LEGAL CONSULTANT Unavailable Unavailable Guy, A Sammie FOREIGN LEGAL CONSULTANT Unavailable Unavailable Guy, A Sammie FOREIGN LEGAL CONSULTANT Unavailable Unavailable Re-disclosure Warning The records that [...] is protected by Article 27-F of the [facility] Public Health law. If you continue you may have access to information: Regarding HIV / AIDS; Provided by facilities licensed or operated by the [facility] Office of Mental Health; or Provided by the [facility] Office for People With Developmental Disabilities. If such information is present, then the following [facility] mandated warning applies: This information has been [...] law may result in a fine or residential sentence or both. A general authorization for the release of medical or other information is NOT sufficient authorization for further disc losure. Encounters Encounter Providers Location Date Indications Data Source(s ) [facility]: [facility] 11:3 0:03 AM EDT [facility] Outpatient Attender: IVONE Tovar [facility] 03/02/2020 09:06:02 P M EDT [facility] Outpatient Attender: Sammienatividad Tovar [facility] 03/02/2020 09:0 6:01 PM EDT [facility] Outpatient Attender: IVONE Tovar [facility] 02/23/2020 08:01:04 P M EDT [facility] Outpatient Attender: IVONE MIGUELP [facility] 02/04/2020 09:12:01 P M EDT [facility] Outpatient Attender: Sammie WISEMAN [facility] 02/04/2020 09:1 2:01 PM EDT [facility] Outpatient Attender: IVONE WISEMAN FP 02/04/2020 09:11:01 P M EDT [facility] Outpatient Attender: Sammie MIGUELP FP 02/04/2020 09:1 1:00 PM EDT [facility] Outpatient Attender: Sammie MIGUELP FP 01/18/2020 10:2 3:00 AM EDT [facility] Outpatient Attender: IVONE WISEMAN FP 01/12/2020 08:01:04 P M EDT [facility] Outpatient Attender: Sammie MIGUELP FP 01/10/2020 12:5 3:59 AM EDT [facility] Outpatient Attender: IVONE MIGUELP FP 01/05/2020 07:51:01 A M EDT [facility] Outpatient Attender: IVONE MIGUELP FP 01/04/2020 10:32:03 A M EDT [facility] Outpatient Attender: Sammie WISEMAN FP 01/04/2020 10:0 6:02 AM EDT [facility] Outpatient Attender: IVONE MIGUELP FP 01/04/2020 09:00:01 A M EDT [facility] Outpatient Attender: IVONE WISEMAN FP 12/28/2019 12:02:13 A M EDT [facility] Outpatient Attender: IVONE WISEMAN FP 12/27/2019 09:54:00 A M EDT [facility] Outpatient Attender: IVONE MIGUELP FP 12/27/2019 12:02:10 A M EDT [facility] Outpatient Attender: IVONE WISEMAN FP 12/26/2019 12:10:00 P M EDT [facility] Outpatient Attender: IVONE MIGUELP FP 11/30/2019 12:04:01 P M EDT [facility] Outpatient Attender: Sammie MIGUELP FP 11/18/2019 01:1 4:01 PM EDT [facility] Outpatient Attender: IVONE MIGUELP FP 11/18/2019 01:13:59 P M EDT [facility] Outpatient Attender: Sammie MIGUELP FP 11/11/2019 07:1 1:01 PM EDT [facility] Outpatient Attender: IVONE MIGUELP FP 11/07/2019 07:43:07 P M EDT [facility] Outpatient Attender: IVONE MIGUELP FP 11/06/2019 12:30:05 P M EDT [facility] Outpatient Attender: IVONE MIGUELP FP 11/06/2019 11:30:04 A M EDT [facility] Outpatient Attender: Sammie MIGUELP FP 10/22/2019 12:2 8:00 AM EDT [facility] Outpatient Attender: IVONE MIGUELP FP 10/11/2019 02:15:00 P M EDT [facility] Outpatient Attender: IVONE MIGUELP FP 10/10/2019 09:16:02 A M EDT [facility] Outpatient Attender: IVONE MIGUELP FP 10/10/2019 08:32:00 A M EDT [facility] Outpatient Attender: IVONE MIGUELP FP 10/04/2019 12:39:01 P M EDT [facility] Outpatient Attender: IVONE MIGUELP FP 10/03/2019 08:06:01 A M EDT [facility] Outpatient Attender: IVONE Tovar FOREIGN LEGAL CONSULTANT FP 10/03/2019 08:05:00 A M EDT [facility] Outpatient Attender: IVONE MIGUELP FP 10/02/2019 11:53:08 A M EDT [facility] Outpatient Attender: IVONE MIGUELP FP 07/04/2019 09:52:01 A M EST [facility] Outpatient Attender: Sammie MIGUELP FP 07/04/2019 09:5 1:01 AM EST [facility] Outpatient Attender: Sammie WISEMAN FP 07/04/2019 09:2 1:01 AM [facility] Outpatient Attender: IVONE MIGUELP FP 07/04/2019 09:21:01 A M EST [facility] Outpatient Attender: Sammie WISEMAN FP 07/04/2019 09:2 0:02 AM EST [facility] Outpatient Attender: IVONE Guy IVONE FP 07/04/2019 09:20:01 A [facility] Outpatient Attender: IVONE Ugy IVONE FP 07/04/2019 09:01:01 A [facility] Outpatient Attender: IVONE Guy IVONE FP 07/04/2019 09:00:01 A [facility] Outpatient Attender: IVONE Guy IVONE FP 06/30/2019 11:48:00 A [facility] Outpatient Attender: IVONE WISEMAN FP 06/27/2019 10:25:01 A [facility] Outpatient Attender: IVONE Guy IVONE FP 06/27/2019 10:24:00 A [facility] Outpatient Attender: IVONE SHUKLA 06/27/2019 09:02:00 A [facility] Outpatient Attender: Sammie WISEMAN 05/23/2019 12:1 6:59 PM [facility] Outpatient Attender: IVONE WISEMAN 05/19/2019 08:02:09 P [facility] Outpatient Attender: Sammie WISEMAN 05/14/2019 07:1 1:00 PM [facility] Medications Medication Brand Name Start Date Product Form Dose Route Admi nistrative Instructions Pharmacy Instructions Status Indications Reaction Description Data Source(s) 500 mg 06/03/2020 12:00:00 AM EST tablet extended release 24 hr 30 TAKE ONE TABLET BY MOUTH EVERY DAY TAKE ONE TABLET BY MOUTH EVERY DAY SOLD: 06/05/2020 [facility] 500 mg 03/25/2020 12:00:00 AM EDT tablet 60 TAKE ONE TABLET BY MOUTH TWICE A DAY NEEDED TAKE ONE TABLET BY MOUTH TWICE A DAY NEEDED SOLD: 03/25/2020 [facility] 500 mg 01/18/2020 12:00:00 AM EDT [...] type / Coverage type Policy ID Covered libertarian ID Covered libertarian's relationship to [place] Policy [place] Plan Information HUMANA GOLD [id number] SP [id number] SP [id number] [employer] P [id number] S [id number] Medicaid S [id number] S [id number] [employer] PPO [id number] SP [id number] MEDICARE [id number] SP [id number] T40 Medicare S [id number] S [id number] T40 Medicare P [id number] S [id number] T40 MEDICAID [id number] SP [id number] Medicare P [id number] S [id number] a Medicare P [id number] S [id number] a MEDICAID M [id number] S [id number] MEDICARE C [id number] S [id number] T40 Medicaid S [id number] S [id number] MEDICARE [id number] SP [id number] A Medicaid S [id number] S [id number] MEDICARE [id number] SP [id number] A MEDICAID [id number] SP [id number] MEDICARE [id number] SP [id number] A Medicaid S [id number] S [id number] MEDICAID [id number] SP [id number] MEDICARE [id number] SP [id number] A Problems, Conditions, and Diagnoses Code Display Name Description Problem Type Effective Dates Data Source(s) 599.72 Microscopic hematuria Microscopic hematuria 10/2019 10:30:41 AM EDT [facility] V70.0 Encounter for general adult medical exam ination with abnormal findings Encounter for general adult medical examination with abnormal findings [facility] Ot[facility], bilateral Otalgia, bilateral 0 12:29:58 PM [facility] 380.4 Impacted cerumen, bilateral Impacted cerumen, bilatera l 11/06/2019 11:29:39 AM [facility] V65.8 Person consulting for explanation of exa mination or test findings Person consulting for explanation of examination or test findings 10/10/2019 09:15:19 AM [facility] R03.0 Elevated blood-pressure reading, without diagnosis of hypertension Elevated blood-pressure reading, without diagnosis of hypertension 07/04/2019 09:50:46 AM [facility] Results ID Date Data Source [id number] 01/04/2020 09:08:17 AM [facility] Measurements & CalculationsHeight: 64 inches (5 [...] or Preferred Language: EnglishFamily and Home Address: [address] [place] [address] What is your housing situation today? I have housing Are you worried about losing your housing? NoMoney and Resources In the past year, have you or any family members you live with been unable to get any of the following when it was really needed? Denies Insecurity: food, utilities, clothing, director of child welfare services, phone, legal services, otherWithin the past year [...] during this visit, including review of any lrza-ngr-fesgyym medications, herbal therapies, and/or supplements.Allergy ReviewAllergy List [...] adult medical examination with abnormal findings (ICD-V70.0) (RSQ08-C09.01) Assessment: Instructions: You have had your annual physical exam done today.Microscopic hematuria (ICD-599.72) (ICD10- R31.29) Assessment: Instructions: urine culture ordered. We will contact you if results are concerning.Assessed:Hyperlipidemia, unspecified (NIJ78-V98.5) Assessment: Instructions: HDL within normal , LDL still slightly elevated. We will continue to manage this with lifestyle changes for now. Please continue lifestyle changes to include healthy diet and physical activities. Please try to avoid processed foods.Diabetes Mellitus, Type II (ICD-250.00) (XTY46-A09.9) Assessment: Instructions: Your HGA1c is 5.9. This indicates very well controlled diabetes. Please continue medication as prescribed. Please continue lifestyle changes to include healthy diet and physical activities. Please continue to limit sugars and bbcarbohydrates in your diet. Please try to avoid processed foods.Person consulting for explanation of examination or test findings (ICD-V65.8) (HNV08-T95.2) Assessment: UA +1 plus blood and +1 leuk. patient denies s/s of UTI. will oder culture. pt ecnouraged adequate intake of water and good personal hygiene Instructions: We have reviewed your lab results with you today.Elevated blood-pressure reading, without diagnosis of hypertension (ICD-796.2) (CZB35-G83.0) Assessment: Instructions: Your Blood Pressure is at goal today.Health Screening (ICD-V70.0) (EBS57-U61.9) Assessment: Instructions: lab results reviewed with you [...] TABLETAllergies:No Known Allergies (updated 01/04/2020) Orders:URINALYSIS [CPT- 79672] Urine Culture [CPT-17167] COMP METABOLIC PANEL [CPT-22988] CBC W/DIFF [CPT-58662] HgBA1c [CPT-81213] LIPID PANEL [CPT-13576] Adult - Ofc Vst, EST, Level IV [CPT-83440] Follow-Up Return to clinic: 3 months for follow up Clinical Visit Summary Completed Name Value Range Interpretation Code Description Data Hina rce(s) Supporting Document(s) ID Date Data Source [id number] 01/04/2020 09:00:00 AM EDT [facility] Name Value Range Interpretation Code Description Data Hina rce(s) Supporting Document(s) APPEARANCE U CLEAR CLEAR N [facility] Fam [facility] SPEC GR URIN 1.009 1.002-1.035 N [facility] F [facility] UA COLOR YELLOW YELLOW N [facility] ID Date Data Source [id number] 01/04/2020 09:00:00 AM EDT [facility] Name Value Range Interpretation Code Description Data Hina rce(s) Supporting Document(s) URINECULTRTN NO GROWTH N [facility]am [facility] ID Date Data Source [id number] 12/27/2019 10:06:23 AM EDT [facility] Labs In-House Blood TestsDate/Time Colle cted: December 27, 2019 10:07 AMTest Result Reference Range Normal ValueComments: blood drawn from right AC Pt tolerated well Chandler Henley [facility], December 27, 2019 10:07 AMAssessment & Plan Orders:[id number] Vst-Est Level I [CPT-96590] 33409 - Venipuncture [CPT- 00658] Name Value Range Interpretation Code Description Data Hina rce(s) Supporting Document(s) ID Date Data Source [id number] 12/27/2019 10:00:00 AM EDT [facility] Name Value Range Interpretation Code Description Data Hina rce(s) Supporting Document(s) HCT 47.3 % 36.0-47.0 H [facility] HGB 15.5 g/dL 12.0-15.5 N [facility] MCH 32.8 G/DL pg 32.0-36.5 N [facility] Fam [facility]on [facility] MCHC 29.6 PG % 27.0-33.0 N [facility] PLATELETS 280 10 10*3/mm3 150-450 N [facility] Family [facility] RBC 5.23 10 10*6/mm3 4.00-5.40 N [facility] RDW 12.9 % 11.5-14.5 N [facility] WBC TOTAL 6.2 4.0-10.0 N [facility] ID Date Data Source [id number] 12/27/2019 10:00:00 AM EDT [facility] Name Value Range Interpretation Code Description Data Hina rce(s) Supporting Document(s) APPEARANCE U CLEAR CLEAR N [facility] Fam [facility] SPEC GR URIN 1.017 1.002-1.035 N [facility] F [facility] UA COLOR YELLOW YELLOW N [facility] ID Date Data Source [id number] 12/27/2019 10:00:00 AM EDT [facility] Name Value Range Interpretation Code Description Data Hina rce(s) Supporting Document(s) HGBA1C 5.9 % N [facility] ID Date Data Source [id number] 12/27/2019 10:00:00 AM EDT [facility] Name Value Range Interpretation Code Description Data Hina rce(s) Supporting Document(s) BG FASTING 96 mg/dL 70-100 N [facility] Famil y Health ID Date Data Source [id number] 11/06/2019 10:19:08 AM EDT [facility] Measurements & CalculationsHeight: 64 inches (5 ft. [...] during this visit, including review of any lmra-obv-dhhagkv medications, herbal therapies, and/or supplements.Allergy ReviewAllergy List [...] GoodAssessment & Plan Problems:Added: Otalgia, bilateral (ICD-388.70) (OTR79-I69.03) Assessment: Instructions: We have sent a prescription to your pharmacy today. Please take as prescribed. . Please try to keep ear canal clean and dry.Impacted cerumen, bilateral (ICD- 380.4) (NFX28-S09.23) Assessment: Instructions: ear wax removed bilateral ear canal. please try to keep clean and dry. please avoid use of Qtips.Impacted cerumen, bilateral (ICD-380.4) (AKL63-P23.23) Assessment: Ear canal flusged bial with warm water.Assessed:Person consulting for explanation of examination or test findings (ICD-V65.8) (WIU54-K48.2) Assessment: Instructions: We have reviewed your lab results with you today. HGA1c 6.4. , this indicates well controlled type 2 diabetes.Person consulting for explanation of examination or test findings (ICD-V65.8) (NUI29-Q23.2) Assessment: Lab results reviewed with you today.Patient [...] ORAL NAPROSYN 500 MG ORAL TABLET Qty: [id number] Refills: 60[Tablet] To: NAPROXEN 500 MG ORAL TABLET-take one tablet by mouth twice daily as needed Qty: 60[Tablet] Refills: 1Allergies:No Known Allergies (updated 11/06/2019) Orders:Ear Wax Removal [CPT-09781] Adult - Ofc Vst, EST, Level III [CPT-39692] Follow-Up Return to clinic: as sceduled and as needed Clinical Visit Summary CompletedMedications:NAPROXEN 500 MG ORAL TABLET (NAPROXEN) take one tablet by mouth twice daily as needed #60[Tablet] x 1 Route:ORAL Entered and Authorized by: Sammie WISEMAN Method used: Electronically to [id number] (retail) [address] [place] [address] Note to Pharmacy: Route: ORAL; Indications: IMPACTED CERUMEN, BILATERAL;OTALGIA, BILATERAL RxID: [id number] signed by Sammie WISEMAN on 11/11/2019 at 7:10 PM Name Value Range Interpretation Code Description Data Hina rce(s) Supporting Document(s) ID Date Data Source [id number] 10/10/2019 08:18:01 AM EDT [facility] Measurements & CalculationsHeight: 64 inches (5 ft. [...] during this visit, including review of any cott-zvo-ewqztla medications, herbal therapies, and/or supplements.Allergy ReviewAllergy List [...] explanation of examination or test findings (ICD-V65.8) (KGC51-R99.2) Assessment: Instructions: We have reviewed your lab results with you today.Assessed:Elevated blood-pressure reading, without diagnosis of hypertension (ICD-796.2) (KCZ36-N23.0) Assessment: Instructions: Your Blood pressure is at goal today.Hyperlipidemia, unspecified (NHI29-H79.5) Assessment: Instructions: LDL still slightly elevated. We will continue to manage this with lifestyle changes for now. Please continue lifestyle changes to include healthy diet and physical activities. Please try to avoid processed foods.Diabetes Mellitus, Type II (ICD-250.00) (UMF11-I01.9) Assessment: Instructions: Your HGA1c is 6.4. This indicates very well controlled diabetes. Please continue medication as prescribed. Please continue lifestyle changes to include healthy diet and physical activities. Please continue to limit sugars and bbcarbohydrates in your diet. Please try to avoid processed foods.Health Screening (ICD-V70.0) (WJN13-E91.9) Assessment: Instructions: lab results reviewed with you [...] Known Allergies (updated 10/10/2019) Orders:COMP METABOLIC PANEL [CPT-63932] CBC W/DIFF [CPT-38293] HgBA1c [CPT- 08855] LIPID PANEL [CPT-97417] URINALYSIS [CPT-73540] Adult - Ofc Vst, EST, Level IV [CPT-71935] Follow-Up Return to clinic: 3 months for follow up Clinical Visit Summary Completed Name Value Range Interpretation Code Description Data Hina rce(s) Supporting Document(s) ID Date Data Source [id number] 10/03/2019 09:25:54 AM EDT [facility] In-House Blood TestsDate/Time Colle cted: October 03, 2019 9:26 AMTest Result Reference Range Normal ValueComments: labs drawn in office. taken from R Ac while pt was laying down. tolerated well. Sunny Palacio MA, October 03, 2019 9:26 AMAssessment & Plan Orders:[id number] Vst-Est Level I [CPT- 39112] 47225 - Venipuncture [CPT-07867] Name Value Range Interpretation Code Description Data Hina rce(s) Supporting Document(s) ID Date Data Source [id number] 10/03/2019 08:25:00 AM EDT [facility] Name Value Range Interpretation Code Description Data Hina rce(s) Supporting Document(s) HCT 44.0 % 36.0-47.0 N [facility] HGB 14.5 g/dL 12.0-15.5 N [facility] MCH 33.0 G/DL pg 32.0-36.5 [facility] MCHC 29.7 PG % 27.0-33.0 N [facility] PLATELETS 301 10 10*3/mm3 150-450 N [facility] RBC 4.88 10 10*6/mm3 4.00-5.40 N [facility] RDW 12.6 % 11.5-14.5 N [facility] WBC TOTAL 7.8 4.0-10.0 N [facility] ID Date Data Source [id number] 10/03/2019 08:25:00 AM EDT [facility] Name Value Range Interpretation Code Description Data Hina rce(s) Supporting Document(s) BG FASTING 130 mg/dL 70-100 H [facility] ID Date Data Source [id number] 10/03/2019 08:25:00 AM EDT [facility] Name Value Range Interpretation Code Description Data Hina rce(s) Supporting Document(s) HGBA1C 6.4 % N [facility] ID Date Data Source [id number] 07/04/2019 09:04:38 AM EST [facility] Measurements & CalculationsHeight: 64 inches (5 ft. 4 in.) 162.56 cm Weight: 141 pounds 64.09 kg Body Mass Index (BMI): 24.29BMI Interpretation: Healthy WeightBody Surface Area (BSA): 1.69Weight Management Education Done (Nutrition/Physical Activity)Vital SignsTemperature: 98.2FPulse Rate: 65 beats/minuteRespiratory Rate: 18 respirations/minuteBlood Pressure: 142/86 Vital Signs performed by: Niehsa Hewitt MA, July 04, 2019 9:11 AMMultiple [...] during this visit, including review of any dieb-lpy-sykzxan medications, herbal therapies, and/or supplements.Allergy ReviewAllergy List [...] blood-pressure reading, without diagnosis of hypertension (ICD-796.2) (UHV45-K30.0) Assessment: Instructions: Your Blood pressure is elevated today. Please continue lifestyle changes to include healthy diet and physical activities. Please try to avoid processed foods.Please try to avoid processed foods.Assessed:Hyperlipidemia, unspecified (VHX49-F61.5) Assessment: Instructions: LDL slightly elevated. We will continue to manage this with lifestyle changes for now. Please continue lifestyle changes to include healthy diet and physical activities. Please try to avoid processed foods.Diabetes Mellitus, Type II (ICD-250.00) (PMS31-Z32.9) Assessment: Instructions: Your HGA1c is 6.4. This indicates very well controlled diabetes. Please continue medication as prescribed. Please continue lifestyle changes to include healthy diet and physical activities. Please continue to limit sugars and bbcarbohydrates in your diet. Please try to avoid processed foods.Health Screening (ICD-V70.0) (HPN51-G13.9) Assessment: Instructions: We have reviewed your lab [...] ORAL CAPSULEONETOUCH ULTRA BLUE IN VITRO STRIPONETOUCH Venga LANCETSONETOUCH ULTRA 2 W/DEVICE KITMETFORMIN HCL ER 500 MG ORAL TABLET EXTENDED RELEASE 24 HOURNAPROSYN 500 MG ORAL TABLETAllergies:No Known Allergies (updated 11/23/2017) Orders:LIPID PANEL [CPT-00673] HgBA1c [CPT- 04522] CBC W/DIFF [CPT-92339] COMP METABOLIC PANEL [CPT-06233] Adult - Ofc Vst, EST, Level IV [CPT-78251] Follow-Up Return to clinic: 3 months for follow up Additional Follow-Up: fasting labs prior to next visitClinical Visit Summary Completed Name Value Range Interpretation Code Description Data Hina rce(s) Supporting Document(s) ID Date Data Source [id number] 06/27/2019 09:29:03 AM EST [facility] [employer] [facility] Labs In-House Blood TestsDate/Time Colle cted: June 27, 2019 9:29 AMTest Result Reference Range Normal ValueComments: blood draw done in office done in the right ac tolerated well Aj Nieves MA, June 27, 2019 9:29 AMAssessment & Plan Orders:[id number] Vst-Est Level I [CPT-23119] 26771 - Venipuncture [CPT-90421] Name Value Range Interpretation Code Description Data Hina rce(s) Supporting Document(s) ID Date Data Source [id number] 06/27/2019 09:10:00 AM EST [facility] Name Value Range Interpretation Code Description Data Hina rce(s) Supporting Document(s) HGBA1C 6.4 % N [facility] ID Date Data Source [id number] 06/27/2019 09:10:00 AM EST [facility] Name Value Range Interpretation Code Description Data Hina rce(s) Supporting Document(s) HCT 46.0 % 36.0-47.0 N [facility] HGB 15.1 g/dL 12.0-15.5 N [facility] MCH 32.8 G/DL pg 32.0-36.5 N [facility] MCHC 29.7 PG % 27.0-33.0 N [facility] PLATELETS 292 10 10*3/mm3 150-450 N [facility] RBC 5.08 10 10*6/mm3 4.00-5.40 N [facility] RDW 12.9 % 11.5-14.5 N [facility] WBC TOTAL 6.2 4.0-10.0 N [facility] ID Date Data Source [id number] 06/27/2019 09:10:00 AM EST [facility] Name Value Range Interpretation Code Description Data Hina rce(s) Supporting Document(s) BG FASTING 108 mg/dL 70-100 H [facility] Procedure
[2020-06-30 08:29] LABS: HEMATOCRIT 44.8 % (36.0-47.0)
[2020-06-30 08:31] LABS: HEMOGLOBIN 14.6 g/dl (12.0-15.5)
[2020-06-30 08:37] LABS: ALBUMIN 3.5 GM/DL (3.2-5.2); ALT/SGPT 23 U/L (12-78); BILIRUBIN,DIRECT 0.1 MG/DL (0.0-0.2); BILIRUBIN,TOTAL 0.3 MG/DL (0.2-1.0); BLOOD UREA NITROGEN 17 MG/DL (7-18); CALCIUM LEVEL 9.2 MG/DL (8.5-10.1); CARBON DIOXIDE LEVEL 27 MEQ/L (21-32); CHLORIDE LEVEL 109 MEQ/L (98-107); ETHYL ALCOHOL (ETHANOL) < 0.003 % (0.000-0.010); GLOMERULAR FILTRATION RATE > 60.0 (>51); GLUCOSE, FASTING 114 MG/DL (70-100); MAGNESIUM LEVEL 1.8 MG/DL (1.8-2.4); POTASSIUM SERUM 3.8 MEQ/L (3.5-5.1); SODIUM LEVEL 146 MEQ/L (136-145); TOTAL PROTEIN 6.7 GM/DL (6.4-8.2)
[2020-06-30] MEDS ORDERED: VALT1TAB PO (08:45)
--- NOTE | 2020-06-30 08:58 | ECGEPIP ---
[facility] - ED Test Date: 2020-06-30 Pat Name: OCTAVIO THAPA Department: Room: - Gender: Female Test Desk Supervisor: prakash : [id number] Requested By: YANET Israel Order Number: [id number] Reading MD: Karen Pablo Measurements Intervals [place] Rate: 79 P: 50 HI: 134 QRS: 58 QRSD: 102 T: 43 QT: 404 QTc: 464 Interpretive Statements SINUS RHYTHM baseline artifact may affect interpretation POSSIBLE LEFT ATRIAL ENLARGEMENT NONSPECIFIC T-WAVE ABNORMALITY increased rate 05/26/18 Electronically Signed on 06-30-2020 8:58:29 EST by Karen Pablo
[2020-06-30 09:30] VITALS: BP 160/87
== END 2020-06-30 09:45 | disposition home or self-care (01) ==
LOC: M ED 06:19
DX: R55 Syncope and collapse (principal); E11.9 Type 2 diabetes mellitus without complications; Z79.84 Long term (current) use of oral hypoglycemic drugs; Z79.899 Other long term (current) drug therapy
CPT/HCPCS: 36415; 70450; 71045; 80048; 80076; 82550; 82553; 83735; 84484; 85014; 85018; 85025; 93005; 93041; 94760; 99285; G0480

== ENCOUNTER → 2020-08-16 | Outpatient (REF) | payer OTHER, MEDICAID ==
[~2020-08-16] MED LIST changes: +METF-838 PO; +NAPR-885 PO; +VALT1TAB PO
[2020-08-16 11:38] LABS: BASO # 0.1 10^3/uL (0.0-0.2); BASO % 0.8 % (0.0-1.0); EOS # 0.1 10^3/uL (0.0-0.5); EOS % 2.1 % (0.0-3.0); HEMATOCRIT 44.8 % (36.0-47.0); HEMOGLOBIN 14.7 g/dl (12.0-15.5); LYMPH # 1.1 10^3/uL (1.5-5.0); LYMPH % 18.2 % (24.0-44.0); MEAN CORPUSCULAR HEMOGLOBIN 29.9 pg (27.0-33.0); MEAN CORPUSCULAR HGB CONC 32.8 g/dl (32.0-36.5); MEAN CORPUSCULAR VOLUME 91.1 fl (80.0-96.0); MONO # 0.6 10^3/uL (0.0-0.8); MONO % 9.1 % (2.0-8.0); NEUTROPHILS # 4.4 10^3/uL (1.5-8.5); NEUTROPHILS % 69.6 % (36.0-66.0); PLATELET COUNT, AUTOMATED 275 10^3/uL (150-450); RED BLOOD COUNT 4.92 10^6/uL (4.00-5.40); WHITE BLOOD COUNT 6.3 10^3/uL (4.0-10.0)
[2020-08-16 11:54] LABS: HEMOGLOBIN A1c 5.9 %
[2020-08-16 12:23] LABS: ALBUMIN 3.8 GM/DL (3.2-5.2); ALT/SGPT 28 U/L (12-78); BILIRUBIN,TOTAL 0.5 MG/DL (0.2-1.0); BLOOD UREA NITROGEN 18 MG/DL (7-18); CALCIUM LEVEL 8.9 MG/DL (8.5-10.1); CARBON DIOXIDE LEVEL 28 MEQ/L (21-32); CHLORIDE LEVEL 106 MEQ/L (98-107); CHOLESTEROL LEVEL 195 MG/DL (<200); CHOLESTEROL RISK RATIO 3.482 (<5); FREE T4 0.87 NG/DL (0.76-1.46); GLOMERULAR FILTRATION RATE > 60.0 (>51); GLUCOSE, FASTING 110 MG/DL (70-100); HDL CHOLESTEROL 56 MG/DL (>40); LDL CHOLESTEROL 111 MG/DL (<100); NON-HDL-C 139 MG/DL; SODIUM LEVEL 140 MEQ/L (136-145); TOTAL 25(OH) VITAMIN D 22.8 NG/ML (30.0-100.0); TRIGLYCERIDES LEVEL 140 MG/DL (<150)
== END ==
LOC: M LAB REF 11:13
PROVIDERS: ATTEND Nurse Practitioner Family
DX: E11.9 Type 2 diabetes mellitus without complications (principal)

== ENCOUNTER → 2020-11-27 | Outpatient (REF) | payer OTHER, MEDICAID ==
[2020-11-27 17:42] LABS: BASO # 0.1 10^3/uL (0.0-0.2); BASO % 0.7 % (0.0-1.0); EOS # 0.2 10^3/uL (0.0-0.5); EOS % 2.2 % (0.0-3.0); HEMATOCRIT 45.4 % (36.0-47.0); HEMOGLOBIN 14.7 g/dl (12.0-15.5); LYMPH # 1.8 10^3/uL (1.5-5.0); LYMPH % 26.2 % (24.0-44.0); MEAN CORPUSCULAR HEMOGLOBIN 29.6 pg (27.0-33.0); MEAN CORPUSCULAR HGB CONC 32.4 g/dl (32.0-36.5); MEAN CORPUSCULAR VOLUME 91.5 fl (80.0-96.0); MONO # 0.7 10^3/uL (0.0-0.8); MONO % 9.7 % (2.0-8.0); NEUTROPHILS # 4.2 10^3/uL (1.5-8.5); NEUTROPHILS % 61.1 % (36.0-66.0); PLATELET COUNT, AUTOMATED 325 10^3/uL (150-450); RED BLOOD COUNT 4.96 10^6/uL (4.00-5.40); WHITE BLOOD COUNT 6.8 10^3/uL (4.0-10.0)
[2020-11-27 18:07] LABS: ALBUMIN 3.9 GM/DL (3.2-5.2); ALT/SGPT 18 U/L (12-78); BILIRUBIN,TOTAL 0.4 MG/DL (0.2-1.0); BLOOD UREA NITROGEN 25 MG/DL (7-18); CALCIUM LEVEL 9.1 MG/DL (8.5-10.1); CARBON DIOXIDE LEVEL 27 MEQ/L (21-32); CHLORIDE LEVEL 106 MEQ/L (98-107); CHOLESTEROL LEVEL 203 MG/DL (<200); CHOLESTEROL RISK RATIO 3.759 (<5); CREATININE FOR GFR 0.76 MG/DL (0.55-1.30); GLOMERULAR FILTRATION RATE > 60.0 (>51); GLUCOSE, FASTING 101 MG/DL (70-100); HDL CHOLESTEROL 54 MG/DL (>40); LDL CHOLESTEROL 129 MG/DL (<100); NON-HDL-C 149 MG/DL; POTASSIUM SERUM 4.8 MEQ/L (3.5-5.1); SODIUM LEVEL 139 MEQ/L (136-145); TOTAL PROTEIN 7.1 GM/DL (6.4-8.2); TRIGLYCERIDES LEVEL 102 MG/DL (<150)
[2020-11-27 18:18] LABS: HEMOGLOBIN A1c 5.7 %
== END ==
LOC: M LAB REF 16:45
PROVIDERS: ATTEND Nurse Practitioner Family
DX: E78.5 Hyperlipidemia, unspecified (principal); R73.03 Prediabetes; R03.0 Elevated blood-pressure reading, without diagnosis of hypertension

== ENCOUNTER → 2022-04-09 | Outpatient (REF) | payer MEDICARE, MEDICAID ==
[2022-04-09 12:27] LABS: BASO # 0.1 10^3/uL (0.0-0.2); BASO % 0.8 % (0.0-1.0); EOS # 0.1 10^3/uL (0.0-0.5); EOS % 1.4 % (0.0-3.0); HEMATOCRIT 47.2 % (36.0-47.0); HEMOGLOBIN 15.5 g/dl (12.0-15.5); LYMPH # 1.5 10^3/uL (1.5-5.0); LYMPH % 23.2 % (24.0-44.0); MEAN CORPUSCULAR HGB CONC 32.8 g/dl (32.0-36.5); MEAN CORPUSCULAR VOLUME 91.5 fl (80.0-96.0); MONO # 0.5 10^3/uL (0.0-0.8); MONO % 7.7 % (2.0-8.0); NEUTROPHILS # 4.2 10^3/uL (1.5-8.5); NEUTROPHILS % 66.6 % (36.0-66.0); PLATELET COUNT, AUTOMATED 295 10^3/uL (150-450); RED BLOOD COUNT 5.16 10^6/uL (4.00-5.40); WHITE BLOOD COUNT 6.4 10^3/uL (4.0-10.0)
[2022-04-09 13:21] LABS: ALBUMIN 3.5 GM/DL (3.2-5.2); ALT/SGPT 26 U/L (12-78); BILIRUBIN,TOTAL 0.3 MG/DL (0.2-1.0); BLOOD UREA NITROGEN 16 MG/DL (7-18); CALCIUM LEVEL 9.1 MG/DL (8.5-10.1); CARBON DIOXIDE LEVEL 29 MEQ/L (21-32); CHLORIDE LEVEL 107 MEQ/L (98-107); CHOLESTEROL LEVEL 214 MG/DL (<200); CHOLESTEROL RISK RATIO 3.754 (<5); CREATININE FOR GFR 0.84 MG/DL (0.55-1.30); GLOMERULAR FILTRATION RATE > 60.0 (>51); GLUCOSE, FASTING 128 MG/DL (70-100); HDL CHOLESTEROL 57 MG/DL (>40); LDL CHOLESTEROL 137 MG/DL (<100); NON-HDL-C 157 MG/DL; POTASSIUM SERUM 4.6 MEQ/L (3.5-5.1); SODIUM LEVEL 139 MEQ/L (136-145); TRIGLYCERIDES LEVEL 99 MG/DL (<150)
[2022-04-09 13:25] LABS: HEMOGLOBIN A1c 6.3 %
== END ==
LOC: M LAB REF 11:25
PROVIDERS: ATTEND Nurse Practitioner Family
DX: Z68.20 Body mass index [BMI] 20.0-20.9, adult (principal)

== ENCOUNTER → 2022-08-04 | Outpatient (REF) | payer MEDICARE, MEDICAID ==
[2022-08-04 14:03] LABS: CHOLESTEROL RISK RATIO 3.5 (<5); HDL CHOLESTEROL 59.9 MG/DL (>40); LDL CHOLESTEROL 123.9 MG/DL (<100)
[2022-08-04 14:25] LABS: HEMOGLOBIN A1c 6.6 % (4.0-6.0)
== END ==
LOC: M LAB REF 12:35
PROVIDERS: ATTEND Nurse Practitioner Family
DX: E11.9 Type 2 diabetes mellitus without complications (principal); E78.5 Hyperlipidemia, unspecified

== ENCOUNTER → 2022-12-07 | Outpatient (REF) | payer MEDICARE, MEDICAID ==
[2022-12-07 13:19] LABS: HEMOGLOBIN A1c 6.5 % (4.0-6.0)
[2022-12-07 13:43] LABS: CHOLESTEROL RISK RATIO 3.92 (<5); HDL CHOLESTEROL 56.3 MG/DL (>40); LDL CHOLESTEROL 129.1 MG/DL (<100); NON-HDL-C 164.7 MG/DL
== END ==
LOC: M LAB REF 11:43
PROVIDERS: ATTEND Nurse Practitioner Family
DX: E78.5 Hyperlipidemia, unspecified (principal); E11.9 Type 2 diabetes mellitus without complications

== ENCOUNTER 2022-12-14 19:23 | Emergency (ER) | payer MEDICARE, MEDICAID ==
[2022-12-14 19:35] VITALS: TEMP 97.1
[2022-12-14] MEDS ORDERED: ALPRAZolam 0.25 MG TAB PO ONE (19:45)
[2022-12-14 20:31] LABS: BASO % 0.3 % (0.0-1.0); EOS # 0.2 10^3/uL (0.0-0.5); EOS % 1.9 % (0.0-3.0); HEMATOCRIT 44.4 % (36.0-47.0); HEMOGLOBIN 15.5 g/dl (12.0-15.5); LYMPH # 1.3 10^3/uL (1.5-5.0); LYMPH % 12.3 % (24.0-44.0); MEAN CORPUSCULAR HEMOGLOBIN 30.1 pg (27.0-33.0); MEAN CORPUSCULAR HGB CONC 34.9 g/dl (32.0-36.5); MEAN CORPUSCULAR VOLUME 86.2 fl (80.0-96.0); MONO # 0.7 10^3/uL (0.0-0.8); MONO % 6.4 % (2.0-8.0); NEUTROPHILS # 8.3 10^3/uL (1.5-8.5); NEUTROPHILS % 78.8 % (36.0-66.0); PLATELET COUNT, AUTOMATED 302 10^3/uL (150-450); RED BLOOD COUNT 5.15 10^6/uL (4.00-5.40); WHITE BLOOD COUNT 10.6 10^3/uL (4.0-10.0)
[2022-12-14 20:49] LABS: LIPASE 44 U/L (12-53)
[2022-12-14 20:52] LABS: ALBUMIN 3.4 G/DL (3.2-5.2); ALKALINE PHOSPHATASE 88 U/L (46-116); ALT/SGPT 20 U/L (7.0-40); AST/SGOT 12 U/L (<34); BILIRUBIN,DIRECT 0.1 MG/DL (<0.4); BILIRUBIN,TOTAL 0.4 MG/DL (0.3-1.2); BLOOD UREA NITROGEN 14 MG/DL (9-23); CALCIUM LEVEL 8.8 MG/DL (8.5-10.1); CARBON DIOXIDE LEVEL 20 MMOL/L (20-31); CHLORIDE LEVEL 108 MMOL/L (98-107); CREATININE FOR GFR 0.66 MG/DL (0.55-1.30); GLOMERULAR FILTRATION RATE > 60.0 (>51); GLUCOSE, FASTING 177 MG/DL (60-100); POTASSIUM SERUM 3.9 MMOL/L (3.5-5.1); SODIUM LEVEL 141 MMOL/L (136-145); TOTAL PROTEIN 6.4 G/DL (5.7-8.2)
[2022-12-14 21:15] VITALS: BP 139/85
[2022-12-14 21:33] VITALS: O2SAT 92
== END 2022-12-14 21:45 | disposition home or self-care (01) ==
LOC: M ED 19:23 → EDBD 19:23 → M ED 21:45
DX: R07.89 Other chest pain (principal); F41.9 Anxiety disorder, unspecified; E11.9 Type 2 diabetes mellitus without complications; Z79.899 Other long term (current) drug therapy

== ENCOUNTER → 2024-02-16 | Outpatient (REF) | payer MEDICARE, MEDICAID ==
[2024-02-16 14:03] LABS: THYROID STIMULATING HORMONE 2.313 uIU/ML (0.55-4.78); TOTAL 25(OH) VITAMIN D 25.5 NG/ML (20.0-100.0)
[2024-02-16 14:04] LABS: ALBUMIN 3.5 G/DL (3.2-5.2); ALKALINE PHOSPHATASE 104 U/L (46-116); ALT/SGPT 22 U/L (7.0-40); AST/SGOT 14 U/L (<34); BASO % 0.5 % (0.0-1.0); BILIRUBIN,TOTAL 0.5 MG/DL (0.3-1.2); BLOOD UREA NITROGEN 12 MG/DL (9-23); CALCIUM LEVEL 9.7 MG/DL (8.3-10.6); CARBON DIOXIDE LEVEL 27 MMOL/L (20-31); CHLORIDE LEVEL 109 MMOL/L (98-107); CHOLESTEROL LEVEL 228 MG/DL (<200); CHOLESTEROL RISK RATIO 4.84 (<5); CREATININE FOR GFR 0.79 MG/DL (0.55-1.30); EOS # 0.1 10^3/uL (0.0-0.5); EOS % 0.9 % (0.0-3.0); GLOMERULAR FILTRATION RATE > 60.0 (>45); GLUCOSE, FASTING 146 MG/DL (74-106); HDL CHOLESTEROL 47.1 MG/DL (>40); HEMATOCRIT 46.9 % (36.0-47.0); HEMOGLOBIN 15.8 g/dl (12.0-15.5); LDL CHOLESTEROL 148.1 MG/DL (<100); LYMPH # 1.6 10^3/uL (1.5-5.0); LYMPH % 20.6 % (24.0-44.0); MAGNESIUM LEVEL 1.9 MG/DL (1.8-2.4); MEAN CORPUSCULAR HEMOGLOBIN 29.4 pg (27.0-33.0); MEAN CORPUSCULAR HGB CONC 33.7 g/dl (32.0-36.5); MEAN CORPUSCULAR VOLUME 87.3 fl (80.0-96.0); MONO # 0.6 10^3/uL (0.0-0.8); MONO % 7.1 % (2.0-8.0); NEUTROPHILS # 5.6 10^3/uL (1.5-8.5); NEUTROPHILS % 70.5 % (36.0-66.0); NON-HDL-C 180.9 MG/DL; PLATELET COUNT, AUTOMATED 296 10^3/uL (150-450); POTASSIUM SERUM 3.9 MMOL/L (3.5-5.1); RED BLOOD COUNT 5.37 10^6/uL (4.00-5.40); SODIUM LEVEL 140 MMOL/L (136-145); TOTAL PROTEIN 6.9 G/DL (5.7-8.2); TRIGLYCERIDES LEVEL 164 MG/DL (<150)
== END ==
LOC: M LAB REF 12:10
PROVIDERS: ATTEND Nurse Practitioner Family
DX: I10 Essential (primary) hypertension (principal); E78.5 Hyperlipidemia, unspecified; Z13.29 Encounter for screening for other suspected endocrine disorder; E55.9 Vitamin D deficiency, unspecified

== ENCOUNTER 2024-04-06 18:19 | Inpatient (IN) | payer MEDICARE, MEDICAID ==
[~2024-04-06] VITALS: Ht 162.6 cm; Wt 64.6 kg
[2024-04-06] MEDS: ONDANSETRON 4MG 2ML VIAL IV ONE (19:01)
[2024-04-06] MEDS: MORPHINE 4 MG/ML 1ML VIAL IV PRN (19:02)
[2024-04-06 19:12] LABS: HEMOGLOBIN 14.3 g/dl (12.0-15.5); MEAN CORPUSCULAR HEMOGLOBIN 29.9 pg (27.0-33.0); MEAN CORPUSCULAR VOLUME 87.7 fl (80.0-96.0); PLATELET COUNT, AUTOMATED 317 10^3/uL (150-450); RED BLOOD COUNT 4.79 10^6/uL (4.00-5.40); WHITE BLOOD COUNT 12.3 10^3/uL (4.0-10.0)
[2024-04-06 19:24] LABS: INR 0.94; PROTHROMBIN TIME 12.9 SECONDS (12.5-14.5)
[2024-04-06 19:38] LABS: BLOOD UREA NITROGEN 13 MG/DL (9-23); CALCIUM LEVEL 8.8 MG/DL (8.3-10.6); CARBON DIOXIDE LEVEL 26 MMOL/L (20-31); CHLORIDE LEVEL 107 MMOL/L (98-107); CREATININE FOR GFR 0.82 MG/DL (0.55-1.30); GLOMERULAR FILTRATION RATE > 60.0 (>45); GLUCOSE, FASTING 273 MG/DL (74-106); POTASSIUM SERUM 3.9 MMOL/L (3.5-5.1); SODIUM LEVEL 138 MMOL/L (136-145)
[2024-04-06] MEDS ORDERED: ONDANSETRON 4MG 2ML VIAL IV ONE (20:00)
[2024-04-06] MEDS: METOCLOPRAMIDE INJ 10MG/2ML VIAL IV ONE (20:26)
[2024-04-06] MEDS: fentaNYL 100 MCG/2 ML INJECTION IV PRN (20:28)
[2024-04-06] MEDS ORDERED: METF-838 PO (22:19)
[2024-04-06] MEDS ORDERED: OMEP-173 PO (22:19)
[2024-04-06] MEDS ORDERED: HOME MED LIST COMPLETE! XX SCH (22:25)
[2024-04-07] MEDS ORDERED: MOM 30ML SUSPENSION UDC PO PRN (01:25)
[2024-04-07] MEDS: PERCOCET 5MG/325MG TAB PO PRN ×2 (08:09→14:30)
[2024-04-07 08:29] LABS: BASO % 0.1 % (0.0-1.0); HEMATOCRIT 41.7 % (36.0-47.0); HEMOGLOBIN 14.2 g/dl (12.0-15.5); LYMPH % 7.3 % (24.0-44.0); MEAN CORPUSCULAR HEMOGLOBIN 29.7 pg (27.0-33.0); MEAN CORPUSCULAR HGB CONC 34.1 g/dl (32.0-36.5); MEAN CORPUSCULAR VOLUME 87.2 fl (80.0-96.0); MONO # 0.9 10^3/uL (0.0-0.8); MONO % 6.6 % (2.0-8.0); NEUTROPHILS # 11.6 10^3/uL (1.5-8.5); NEUTROPHILS % 85.7 % (36.0-66.0); PLATELET COUNT, AUTOMATED 307 10^3/uL (150-450); RED BLOOD COUNT 4.78 10^6/uL (4.00-5.40); WHITE BLOOD COUNT 13.5 10^3/uL (4.0-10.0)
[2024-04-07 08:54] LABS: BLOOD UREA NITROGEN 16 MG/DL (9-23); CALCIUM LEVEL 9.3 MG/DL (8.3-10.6); CARBON DIOXIDE LEVEL 26 MMOL/L (20-31); CHLORIDE LEVEL 110 MMOL/L (98-107); CREATININE FOR GFR 0.76 MG/DL (0.55-1.30); GLOMERULAR FILTRATION RATE > 60.0 (>45); GLUCOSE, FASTING 227 MG/DL (74-106); POTASSIUM SERUM 4.5 MMOL/L (3.5-5.1); SODIUM LEVEL 141 MMOL/L (136-145)
[2024-04-07] MEDS ORDERED: ENOXAPARIN 40MG/0.4ML SYRINGE (J1650 PER 10MG) SC SCH (09:00)
[2024-04-07] MEDS ORDERED: GLUCOSE 4 GM CHEW PO PRN ×2 (09:35→11:15)
[2024-04-07] MEDS ORDERED: GLUCAGON INJ 1MG VIAL SC PRN ×2 (09:35→11:15)
[2024-04-07] MEDS ORDERED: DEXTROSE 50% 50ML SYRINGE IV PRN ×2 (09:35→11:15)
[2024-04-07] MEDS: LR 1,000 ML IV SCH (10:26)
[2024-04-07] MEDS: OMEPRAZOLE 20MG CAP PO SCH (10:26)
[2024-04-07] MEDS: ACETAMINOPHEN 325 MG TAB PO PRN (11:54)
[2024-04-07] MEDS ORDERED: INSULIN LISPRO (NovoLOG) PER UNIT SC SCH (12:00)
[2024-04-07] MEDS: INSULIN LISPRO (NovoLOG) PER UNIT SC SCH ×2 (13:11→20:16)
[2024-04-07 14:00] VITALS: BP 152/85; TEMP 97.7; O2SAT 93
[2024-04-07 20:00] VITALS: BP 134/72; TEMP 97.9; O2SAT 88
[2024-04-07] MEDS: ONDANSETRON 4MG 2ML VIAL IV PRN (20:12)
[2024-04-07] MEDS: MORPHINE 2 MG/ML 1ML VIAL IV PRN (20:12)
[2024-04-07] MEDS: ENOXAPARIN 40MG/0.4ML SYRINGE (J1650 PER 10MG) SC ONE (20:19)
[2024-04-08] VITALS (33 sets, daily range): BP systolic 84–151; BP diastolic 50–73; TEMP 97.9–98.9; O2SAT 93–97
[2024-04-08] MEDS: ACETAMINOPHEN *IV* 1,000 MG in IV 1 EA IV ONE (02:07)
[2024-04-08] MEDS: METHOCARBAMOL 1,000 MG/10 ML VIAL IV ONE (02:27)
[2024-04-08] MEDS: LR 1,000 ML IV SCH (05:33)
[2024-04-08 07:05] LABS: BASO % 0.2 % (0.0-1.0); EOS % 0.1 % (0.0-3.0); HEMATOCRIT 45.6 % (36.0-47.0); HEMOGLOBIN 14.9 g/dl (12.0-15.5); LYMPH # 0.6 10^3/uL (1.5-5.0); LYMPH % 2.9 % (24.0-44.0); MEAN CORPUSCULAR HEMOGLOBIN 29.9 pg (27.0-33.0); MEAN CORPUSCULAR HGB CONC 32.7 g/dl (32.0-36.5); MEAN CORPUSCULAR VOLUME 91.4 fl (80.0-96.0); MONO % 4.9 % (2.0-8.0); NEUTROPHILS # 18.9 10^3/uL (1.5-8.5); NEUTROPHILS % 90.1 % (36.0-66.0); RED BLOOD COUNT 4.99 10^6/uL (4.00-5.40)
[2024-04-08 07:09] LABS: PLATELET COUNT, AUTOMATED 195 10^3/uL (150-450)
[2024-04-08 07:30] LABS: BLOOD UREA NITROGEN 18 MG/DL (9-23); CALCIUM LEVEL 9.7 MG/DL (8.3-10.6); CARBON DIOXIDE LEVEL 24 MMOL/L (20-31); CHLORIDE LEVEL 108 MMOL/L (98-107); CREATININE FOR GFR 0.79 MG/DL (0.55-1.30); GLOMERULAR FILTRATION RATE > 60.0 (>45); GLUCOSE, FASTING 269 MG/DL (74-106); POTASSIUM SERUM 4.5 MMOL/L (3.5-5.1); SODIUM LEVEL 142 MMOL/L (136-145)
[2024-04-08] MEDS ORDERED: LIDOCAINE 2% 100MG/5ML SDV (FOR ANES.) As Ordered ONE (08:34)
[2024-04-08] MEDS ORDERED: GLYCOPYRROLATE INJ 0.2 MG/ML 2 ML VIAL As Ordered ONE (08:34)
[2024-04-08] MEDS ORDERED: propofoL 200 MG/20 ML VIAL As Ordered ONE (08:34)
[2024-04-08] MEDS ORDERED: MIDAZOLAM INJ 2MG/2ML VIAL As Ordered ONE (08:35)
[2024-04-08] MEDS ORDERED: KETAMINE HCL 200MG/20ML VIAL As Ordered ONE (08:35)
[2024-04-08] MEDS ORDERED: fentaNYL 100 MCG/2 ML INJECTION As Ordered ONE (08:35)
[2024-04-08] MEDS: ceFAZolin 2 GM/D5W 50 ML IV BAG As Ordered ONE (08:58)
[2024-04-08] MEDS: TRANEXAMIC ACID 100 MG/ML 10ML VIAL As Ordered ONE (09:05)
[2024-04-08] MEDS ORDERED: KETOROLAC 60MG 2ML VIAL As Ordered ONE (11:00)
[2024-04-08] MEDS: BACITRACIN OINTMENT 30GM TUBE As Ordered ONE (11:01)
[2024-04-08] MEDS ORDERED: fentaNYL 100 MCG/2 ML INJECTION IV PRN (11:30)
[2024-04-08] MEDS ORDERED: ONDANSETRON 4MG 2ML VIAL IV PRN (11:30)
[2024-04-08] MEDS ORDERED: oxyCODONE 5MG TAB PO PRN (11:30)
[2024-04-08] MEDS ORDERED: METOPROLOL 5 MG/5 ML VIAL As Ordered ONE (11:47)
[2024-04-08] MEDS: HYDROMORPHONE HCL 0.5 MG/ 0.5 ML SYRINGE IV PRN (11:48)
[2024-04-08] MEDS: METOPROLOL 5 MG/5 ML VIAL IV PRN (11:49)
[2024-04-08 12:54] LABS: ABG BASE EXCESS -1.7 (-2.0-2.0); ABG HCO3 23.2 MMOL/L (22.0-26.0); ABG O2 SATURATION 94.4 % (95.0-99.0); ABG PARTIAL PRESSURE CO2 40.1 mmHg (35.0-45.0); ABG PARTIAL PRESSURE O2 70.2 mmHg (75.0-100.0); ABG TOTAL CO2 24.4 MMOL/L (23.0-31.0)
[2024-04-08] MEDS ORDERED: ISOVUE-370 76% 100ML VIAL As Ordered ONE (13:08)
[2024-04-08] MEDS ORDERED: HEPARIN SOD (PORCINE) 5000UNITS/ML 1ML VIAL/SYRINGE IV PRN (13:55)
[2024-04-08] MEDS: IPRATROPIUM 0.5MG/ALBUTEROL 2.5MG INH SOL UD 3ML (DUONEB) NEB SCH (14:00)
[2024-04-08] MEDS: NS 1,000 ML IV SCH (14:00)
[2024-04-08] MEDS: NS 500 ML IV ONE (14:12)
[2024-04-08] MEDS: cefTRIAXone SOD 1 GM in DEXTROSE 5% (D5W) ADV/MINI-BAG 50 ML IV SCH (14:59)
[2024-04-08] MEDS: HEPARIN SOD (PORCINE) 5000UNITS/ML 1ML VIAL/SYRINGE IV ONE (15:03)
[2024-04-08] MEDS: HEPARIN DRIP 25,000 UNITS in IV 1 EA IV SCH (15:05)
[2024-04-08] MEDS: VASOPRESSIN IN 0.9 % NACL 20 UNIT in IV 1 EA IV SCH (15:30)
[2024-04-08] MEDS: DOXYCYCLINE HYCLATE 100 MG in DEXTROSE 5% (D5W) MINI-BAG PLU 100 ML IV SCH (15:43)
[2024-04-08] MEDS: MORPHINE 2 MG/ML 1ML VIAL IV PRN (15:55)
[2024-04-08 16:32] LABS: THYROID STIMULATING HORMONE 0.391 uIU/ML (0.55-4.78)
[2024-04-08 16:41] LABS: ALBUMIN 2.4 G/DL (3.2-5.2); ALKALINE PHOSPHATASE 76 U/L (35-104); ALT/SGPT 21 U/L (7.0-40); AST/SGOT 20 U/L (<34); BILIRUBIN,TOTAL 0.6 MG/DL (0.3-1.2); BLOOD UREA NITROGEN 20 MG/DL (9-23); CALCIUM LEVEL 8.9 MG/DL (8.3-10.6); CARBON DIOXIDE LEVEL 21 MMOL/L (20-31); CHLORIDE LEVEL 111 MMOL/L (98-107); CREATININE FOR GFR 0.89 MG/DL (0.55-1.30); GLOMERULAR FILTRATION RATE > 60.0 (>45); GLUCOSE, FASTING 247 MG/DL (74-106); MAGNESIUM LEVEL 1.7 MG/DL (1.8-2.4); PHOSPHORUS LEVEL 3.3 MG/DL (2.4-5.1); SODIUM LEVEL 141 MMOL/L (136-145); TOTAL PROTEIN 5.7 G/DL (5.7-8.2)
[2024-04-08 16:43] LABS: FREE T4 0.96 NG/DL (0.89-1.76)
[2024-04-08] MEDS ORDERED: ceFAZolin SOD 2 GM in IV 1 EA IV SCH (17:00)
[2024-04-08] MEDS: ACETAMINOPHEN *IV* 1,000 MG in IV 1 EA IV SCH (17:12)
[2024-04-08] MEDS: MAG SULF 1GM/100ML (MAG RUN) 1 GM in IV 1 EA IV ONE (17:34)
[2024-04-09] VITALS (13 sets, daily range): BP systolic 105–133; BP diastolic 59–74; TEMP 97.2–103.8; O2SAT 89–98
[2024-04-09 01:28] LABS: INR 1.28; PARTIAL THROMBOPLASTIN TIME 40.9 SECONDS (24.8-34.2); PROTHROMBIN TIME 16.3 SECONDS (12.5-14.5)
[2024-04-09 08:10] LABS: BASO % 0.2 % (0.0-1.0); EOS # 0.1 10^3/uL (0.0-0.5); EOS % 0.4 % (0.0-3.0); HEMATOCRIT 36.7 % (36.0-47.0); HEMOGLOBIN 12.4 g/dl (12.0-15.5); LYMPH # 0.6 10^3/uL (1.5-5.0); LYMPH % 3.2 % (24.0-44.0); MEAN CORPUSCULAR HGB CONC 33.8 g/dl (32.0-36.5); MEAN CORPUSCULAR VOLUME 88.6 fl (80.0-96.0); MONO # 0.9 10^3/uL (0.0-0.8); MONO % 4.9 % (2.0-8.0); NEUTROPHILS # 16.9 10^3/uL (1.5-8.5); NEUTROPHILS % 90.3 % (36.0-66.0); PLATELET COUNT, AUTOMATED 155 10^3/uL (150-450); RED BLOOD COUNT 4.14 10^6/uL (4.00-5.40); WHITE BLOOD COUNT 18.7 10^3/uL (4.0-10.0)
[2024-04-09 08:13] LABS: INR 1.31; PARTIAL THROMBOPLASTIN TIME 87.9 SECONDS (24.8-34.2); PROTHROMBIN TIME 16.6 SECONDS (12.5-14.5)
[2024-04-09 08:25] LABS: ALBUMIN 2.2 G/DL (3.2-5.2); ALKALINE PHOSPHATASE 71 U/L (35-104); ALT/SGPT 25 U/L (7.0-40); AST/SGOT 26 U/L (<34); BILIRUBIN,TOTAL 0.4 MG/DL (0.3-1.2); BLOOD UREA NITROGEN 20 MG/DL (9-23); CALCIUM LEVEL 8.6 MG/DL (8.3-10.6); CARBON DIOXIDE LEVEL 25 MMOL/L (20-31); CHLORIDE LEVEL 107 MMOL/L (98-107); CREATININE FOR GFR 0.77 MG/DL (0.55-1.30); GLOMERULAR FILTRATION RATE > 60.0 (>45); GLUCOSE, FASTING 209 MG/DL (74-106); MAGNESIUM LEVEL 1.9 MG/DL (1.8-2.4); PHOSPHORUS LEVEL 2.7 MG/DL (2.4-5.1); POTASSIUM SERUM 4.1 MMOL/L (3.5-5.1); SODIUM LEVEL 138 MMOL/L (136-145); TOTAL PROTEIN 5.2 G/DL (5.7-8.2)
[2024-04-09] MEDS ORDERED: cefTRIAXone SOD 1 GM in DEXTROSE 5% (D5W) ADV/MINI-BAG 50 ML IV SCH (09:00)
[2024-04-09 12:30] LABS: HEMOGLOBIN A1c 7.4 % (4.0-6.0)
[2024-04-09] MEDS: LEVEMIR (INSULIN DETEMIR) 1 UNITS/0.01ML SC SCH (12:44)
[2024-04-09] MEDS: cefTRIAXone SOD 2 GM in DEXTROSE 5% (D5W) ADV/MINI-BAG 50 ML IV SCH (13:03)
[2024-04-09] MEDS: ACETAMINOPHEN *IV* 1,000 MG in IV 1 EA IV ONE (16:44)
[2024-04-09] MEDS: NS 1,000 ML IV ONE (17:54)
[2024-04-09] MEDS: SENOKOT S TAB PO SCH (18:24)
[2024-04-09] MEDS: DOXYCYCLINE HYCLATE 100MG TABLET PO SCH (20:18)
[2024-04-10] VITALS (9 sets, daily range): BP systolic 108–134; BP diastolic 67–81; TEMP 97.3–98.8; O2SAT 90–97
[2024-04-10 04:54] LABS: BASO % 0.2 % (0.0-1.0); EOS # 0.1 10^3/uL (0.0-0.5); EOS % 0.7 % (0.0-3.0); HEMATOCRIT 34.8 % (36.0-47.0); HEMOGLOBIN 11.6 g/dl (12.0-15.5); LYMPH # 0.8 10^3/uL (1.5-5.0); LYMPH % 5.2 % (24.0-44.0); MEAN CORPUSCULAR HEMOGLOBIN 29.4 pg (27.0-33.0); MEAN CORPUSCULAR HGB CONC 33.3 g/dl (32.0-36.5); MEAN CORPUSCULAR VOLUME 88.1 fl (80.0-96.0); MONO # 0.7 10^3/uL (0.0-0.8); NEUTROPHILS # 12.8 10^3/uL (1.5-8.5); NEUTROPHILS % 88.4 % (36.0-66.0); PLATELET COUNT, AUTOMATED 149 10^3/uL (150-450); RED BLOOD COUNT 3.95 10^6/uL (4.00-5.40); WHITE BLOOD COUNT 14.5 10^3/uL (4.0-10.0)
[2024-04-10 05:32] LABS: ALBUMIN 1.8 G/DL (3.2-5.2); ALKALINE PHOSPHATASE 87 U/L (35-104); ALT/SGPT 43 U/L (7.0-40); AST/SGOT 52 U/L (<34); BILIRUBIN,TOTAL 0.4 MG/DL (0.3-1.2); BLOOD UREA NITROGEN 15 MG/DL (9-23); CARBON DIOXIDE LEVEL 25 MMOL/L (20-31); CHLORIDE LEVEL 106 MMOL/L (98-107); CREATININE FOR GFR 0.51 MG/DL (0.55-1.30); GLOMERULAR FILTRATION RATE > 60.0 (>45); GLUCOSE, FASTING 148 MG/DL (74-106); POTASSIUM SERUM 4.1 MMOL/L (3.5-5.1); SODIUM LEVEL 136 MMOL/L (136-145); TOTAL PROTEIN 5.2 G/DL (5.7-8.2)
[2024-04-10] MEDS: BISACODYL 10MG SUPP PR ONE (09:00)
[2024-04-10 14:16] LABS: INR 0.99; PARTIAL THROMBOPLASTIN TIME 59.4 SECONDS (24.8-34.2); PROTHROMBIN TIME 13.4 SECONDS (12.5-14.5)
[2024-04-10] MEDS: APIXABAN 5 MG TAB (ELIQUIS) PO SCH (18:15)
[2024-04-11 04:00] VITALS: TEMP 97.5; O2SAT 94
[2024-04-11 04:47] LABS: BASO % 0.2 % (0.0-1.0); EOS % 0.2 % (0.0-3.0); HEMATOCRIT 34.9 % (36.0-47.0); HEMOGLOBIN 11.9 g/dl (12.0-15.5); LYMPH # 0.7 10^3/uL (1.5-5.0); LYMPH % 5.2 % (24.0-44.0); MEAN CORPUSCULAR HEMOGLOBIN 29.3 pg (27.0-33.0); MEAN CORPUSCULAR HGB CONC 34.1 g/dl (32.0-36.5); MONO # 0.9 10^3/uL (0.0-0.8); MONO % 6.9 % (2.0-8.0); NEUTROPHILS % 86.2 % (36.0-66.0); PLATELET COUNT, AUTOMATED 189 10^3/uL (150-450); RED BLOOD COUNT 4.06 10^6/uL (4.00-5.40); WHITE BLOOD COUNT 12.8 10^3/uL (4.0-10.0)
[2024-04-11 05:11] LABS: ALBUMIN 1.8 G/DL (3.2-5.2); ALKALINE PHOSPHATASE 136 U/L (35-104); ALT/SGPT 48 U/L (7.0-40); AST/SGOT 42 U/L (<34); BILIRUBIN,TOTAL 0.5 MG/DL (0.3-1.2); BLOOD UREA NITROGEN 14 MG/DL (9-23); CALCIUM LEVEL 8.4 MG/DL (8.3-10.6); CARBON DIOXIDE LEVEL 26 MMOL/L (20-31); CHLORIDE LEVEL 104 MMOL/L (98-107); CREATININE FOR GFR 0.54 MG/DL (0.55-1.30); GLOMERULAR FILTRATION RATE > 60.0 (>45); GLUCOSE, FASTING 185 MG/DL (74-106); POTASSIUM SERUM 3.8 MMOL/L (3.5-5.1); SODIUM LEVEL 136 MMOL/L (136-145); TOTAL PROTEIN 5.1 G/DL (5.7-8.2)
[2024-04-11] MEDS: KETOROLAC 30 MG/ML 1ML VIAL IV ONE (11:05)
[2024-04-11] MEDS: PERCOCET 5MG/325MG TAB PO PRN (11:05)
[2024-04-11 11:10] VITALS: BP 125/75; TEMP 97.2; O2SAT 95
[2024-04-11] MEDS ORDERED: ALBUTEROL SULFATE 2.5MG/0.5ML INH NEB SOLN NEB PRN (17:55)
[2024-04-11] MEDS: IBUPROFEN 400MG TAB PO SCH (20:39)
[2024-04-11 22:00] VITALS: BP 125/70; TEMP 97.7; O2SAT 92
[2024-04-12 04:24] VITALS: BP 121/71; TEMP 97.7; O2SAT 93
[2024-04-12 05:27] LABS: HEMATOCRIT 33.1 % (36.0-47.0); HEMOGLOBIN 11.1 g/dl (12.0-15.5); MEAN CORPUSCULAR HEMOGLOBIN 29.4 pg (27.0-33.0); MEAN CORPUSCULAR HGB CONC 33.5 g/dl (32.0-36.5); MEAN CORPUSCULAR VOLUME 87.8 fl (80.0-96.0); PLATELET COUNT, AUTOMATED 220 10^3/uL (150-450); RED BLOOD COUNT 3.77 10^6/uL (4.00-5.40); WHITE BLOOD COUNT 9.5 10^3/uL (4.0-10.0)
[2024-04-12 05:52] LABS: ALBUMIN 1.5 G/DL (3.2-5.2); ALKALINE PHOSPHATASE 135 U/L (35-104); ALT/SGPT 53 U/L (7.0-40); AST/SGOT 46 U/L (<34); BILIRUBIN,TOTAL 0.5 MG/DL (0.3-1.2); BLOOD UREA NITROGEN 16 MG/DL (9-23); CALCIUM LEVEL 8.1 MG/DL (8.3-10.6); CARBON DIOXIDE LEVEL 27 MMOL/L (20-31); CHLORIDE LEVEL 105 MMOL/L (98-107); CREATININE FOR GFR 0.56 MG/DL (0.55-1.30); GLOMERULAR FILTRATION RATE > 60.0 (>45); GLUCOSE, FASTING 157 MG/DL (74-106); POTASSIUM SERUM 3.8 MMOL/L (3.5-5.1); SODIUM LEVEL 138 MMOL/L (136-145); TOTAL PROTEIN 4.9 G/DL (5.7-8.2)
[2024-04-12] MEDS: FUROSEMIDE 40MG/4ML VIAL IV ONE (10:16)
[2024-04-12 12:00] VITALS: BP 115/71; TEMP 97.7; O2SAT 93
[2024-04-12 12:26] VITALS: BP 117/71; TEMP 97.3; O2SAT 95
[2024-04-12] MEDS ORDERED: SENN-52 PO (12:42)
[2024-04-12] MEDS ORDERED: INSUHUMDS SC ×2 (12:42)
[2024-04-12] MEDS ORDERED: INSUDET SC (12:42)
[2024-04-12] MEDS ORDERED: LEVO1TAB40 PO (12:42)
[2024-04-12] MEDS ORDERED: ALB2.5NEB NEB (12:42)
[2024-04-12] MEDS ORDERED: PERCOCET PO (12:42)
[2024-04-12] MEDS ORDERED: IBUP-1022 PO (12:42)
[2024-04-12] MEDS ORDERED: ELIQ5TAB PO (12:42)
[2024-04-12] MEDS ORDERED: PROB250C PO (12:43)
== END 2024-04-12 14:06 | DRG 492 ==
LOC: M ED 18:19 → EDBD 18:19 → M ED INP 04-07 01:21 → M MS5PR 04-07 14:00 → M PCU 04-08 13:00 → M ICU 04-08 15:25 → M MSPAV 04-10 12:01
PROVIDERS: ADMIT Student in an Organized Health Care Education/Training Program; ATTEND Internal Medicine
PROC: 0SSG04Z Reposition Left Ankle Joint with Internal Fixation Device, Open Approach (ICD-10-PCS; principal; 2024-04-08 08:30)
DX: S82.302A Unspecified fracture of lower end of left tibia, initial encounter for closed fracture (principal); J96.01 Acute respiratory failure with hypoxia; A40.0 Sepsis due to streptococcus, group A; J18.9 Pneumonia, unspecified organism; I26.99 Other pulmonary embolism without acute cor pulmonale; I82.611 Acute embolism and thrombosis of superficial veins of right upper extremity; N39.0 Urinary tract infection, site not specified; E87.20 Acidosis, unspecified; K21.9 Gastro-esophageal reflux disease without esophagitis; E11.65 Type 2 diabetes mellitus with hyperglycemia; S82.832A Other fracture of upper and lower end of left fibula, initial encounter for closed fracture; B96.29 Other Escherichia coli [E. coli] as the cause of diseases classified elsewhere; Z79.899 Other long term (current) drug therapy; R33.9 Retention of urine, unspecified; W18.30XA Fall on same level, unspecified, initial encounter; Y92.009 Unspecified place in unspecified non-institutional (private) residence as the place of occurrence of the external cause

== ENCOUNTER 2024-04-12 12:48 | Inpatient (IN) | payer MEDICARE, MEDICAID, OTHER ==
[~2024-04-12] VITALS: Ht 162.6 cm; Wt 64.6 kg
[~2024-04-12 12:48] MED LIST changes: +ALB2.5NEB NEB; +ELIQ5TAB PO; +IBUP-1022 PO; +INSUDET SC; +INSUHUMDS SC; +LEVO1TAB40 PO; +OMEP-173 PO; +PERCOCET PO; +PROB250C PO; +SENN-52 PO
[2024-04-12] MEDS ORDERED: ALBUTEROL SULFATE 2.5MG/0.5ML INH NEB SOLN NEB PRN (14:10)
[2024-04-12] MEDS ORDERED: oxyCODONE 5MG TAB PO PRN ×2 (14:10)
[2024-04-12] MEDS ORDERED: GLUCAGON INJ 1MG VIAL SC PRN (14:15)
[2024-04-12] MEDS ORDERED: FLEET ENEMA PR PRN (14:15)
[2024-04-12] MEDS ORDERED: MAALOX 30 ML SUSP *UDC PO PRN (14:15)
[2024-04-12] MEDS ORDERED: SIMETHICONE 80MG CHEW TAB PO PRN (14:15)
[2024-04-12] MEDS ORDERED: MOM 30ML SUSPENSION UDC PO PRN (14:15)
[2024-04-12] MEDS ORDERED: DEXTROSE 50% 50ML SYRINGE IV PRN (14:15)
[2024-04-12] MEDS ORDERED: GLUCOSE 4 GM CHEW PO PRN (14:15)
[2024-04-12] MEDS ORDERED: BISACODYL 10MG SUPP PR PRN (14:15)
[2024-04-12] MEDS ORDERED: MIRALAX *UNIT DOSE* 17GM PACKET PO PRN (14:15)
[2024-04-12 14:20] VITALS: BP 131/76; TEMP 96.6; O2SAT 93
[2024-04-12] MEDS: PREGABALIN 75 MG CAP(LYRICA) PO ONE (16:36)
[2024-04-12] MEDS: traMADol 50 MG TAB PO SCH (16:37)
[2024-04-12] MEDS: LACTOBACILLUS ACIDOPHILUS CAP (BACID) PO SCH (17:47)
[2024-04-12] MEDS: IBUPROFEN 600MG TAB PO SCH (17:48)
[2024-04-12] MEDS: INSULIN LISPRO (NovoLOG) PER UNIT SC SCH ×2 (17:48→20:13)
[2024-04-12 20:00] VITALS: BP 112/70; TEMP 98.2; O2SAT 92
[2024-04-12] MEDS: DOCUSATE SODIUM 100MG CAPSULE PO SCH (20:12)
[2024-04-12] MEDS: ACETAMINOPHEN 500 MG TAB PO SCH (20:12)
[2024-04-12] MEDS: APIXABAN 5 MG TAB (ELIQUIS) PO SCH (20:12)
[2024-04-12] MEDS: PREGABALIN 75 MG CAP(LYRICA) PO SCH (20:13)
[2024-04-12] MEDS: OMEPRAZOLE 20MG CAP PO SCH (20:13)
[2024-04-12] MEDS: SENOKOT S TAB PO SCH (20:13)
[2024-04-12] MEDS: LEVEMIR (INSULIN DETEMIR) 1 UNITS/0.01ML SC SCH (20:14)
[2024-04-12] MEDS: SENNA 8.6 MG TAB (SENOKOT) PO SCH (20:14)
[2024-04-13 04:00] VITALS: BP 120/72; TEMP 96.7; O2SAT 90
[2024-04-13 07:16] LABS: BASO # 0.1 10^3/uL (0.0-0.2); BASO % 0.5 % (0.0-1.0); EOS # 0.3 10^3/uL (0.0-0.5); EOS % 2.8 % (0.0-3.0); HEMATOCRIT 35.4 % (36.0-47.0); HEMOGLOBIN 11.9 g/dl (12.0-15.5); LYMPH # 1.6 10^3/uL (1.5-5.0); LYMPH % 14.5 % (24.0-44.0); MEAN CORPUSCULAR HEMOGLOBIN 29.5 pg (27.0-33.0); MEAN CORPUSCULAR HGB CONC 33.6 g/dl (32.0-36.5); MEAN CORPUSCULAR VOLUME 87.8 fl (80.0-96.0); MONO # 0.9 10^3/uL (0.0-0.8); MONO % 8.5 % (2.0-8.0); NEUTROPHILS # 7.8 10^3/uL (1.5-8.5); NEUTROPHILS % 70.5 % (36.0-66.0); PLATELET COUNT, AUTOMATED 293 10^3/uL (150-450); RED BLOOD COUNT 4.03 10^6/uL (4.00-5.40)
[2024-04-13] MEDS: IPRATROPIUM 0.5MG/ALBUTEROL 2.5MG INH SOL UD 3ML (DUONEB) NEB SCH (07:26)
[2024-04-13 07:41] LABS: BLOOD UREA NITROGEN 18 MG/DL (9-23); CALCIUM LEVEL 8.5 MG/DL (8.3-10.6); CARBON DIOXIDE LEVEL 26 MMOL/L (20-31); CHLORIDE LEVEL 102 MMOL/L (98-107); CREATININE FOR GFR 0.56 MG/DL (0.55-1.30); GLOMERULAR FILTRATION RATE > 60.0 (>45); GLUCOSE, FASTING 135 MG/DL (74-106); POTASSIUM SERUM 3.9 MMOL/L (3.5-5.1); SODIUM LEVEL 136 MMOL/L (136-145)
[2024-04-13] MEDS: BISACODYL 5MG TAB PO SCH (08:19)
[2024-04-13] MEDS: LevoFLOXacin 750 MG TABLET PO SCH (08:19)
[2024-04-13] MEDS: LACTULOSE 20GM/30ML SYRUP UDC PO SCH (08:20)
[2024-04-13 12:00] VITALS: BP 128/72; TEMP 97; O2SAT 92
[2024-04-13] MEDS: ONDANSETRON 4MG TAB PO PRN (13:56)
[2024-04-13] MEDS: traMADol 50 MG TAB PO SCH (18:06)
[2024-04-13 20:00] VITALS: BP 128/75; TEMP 96.5; O2SAT 97
[2024-04-14 04:00] VITALS: BP 120/66; TEMP 97; O2SAT 95
[2024-04-14] MEDS: DULoxetine 30MG CAPSULE (CYMBALTA) PO ONE (12:09)
[2024-04-14] MEDS: PREGABALIN 75 MG CAP(LYRICA) PO SCH (12:09)
[2024-04-14] MEDS: oxyCODONE 5MG TAB PO PRN (13:51)
[2024-04-14 14:09] VITALS: BP 118/67; TEMP 97.9; O2SAT 90
[2024-04-14 20:22] VITALS: BP 134/66; TEMP 97.2; O2SAT 90
[2024-04-14 21:00] VITALS: O2SAT 94
[2024-04-15 04:50] VITALS: BP 125/66; TEMP 97.1; O2SAT 92
[2024-04-15] MEDS: DULoxetine 30MG CAPSULE (CYMBALTA) PO SCH (07:19)
[2024-04-15 12:00] VITALS: BP 116/61; TEMP 97.3; O2SAT 95
[2024-04-15 19:35] VITALS: BP 131/70; TEMP 96.9; O2SAT 94
[2024-04-16 04:56] VITALS: BP 120/69; TEMP 97.6; O2SAT 93
[2024-04-16 12:00] VITALS: BP 118/59; TEMP 97.3; O2SAT 95
[2024-04-16 19:45] VITALS: BP 135/70; TEMP 97.6; O2SAT 95
[2024-04-17 04:51] VITALS: BP 145/74; TEMP 97.4; O2SAT 93
[2024-04-17] MEDS ORDERED: oxyCODONE 5MG TAB PO PRN (10:55)
[2024-04-17 12:00] VITALS: BP 138/78; TEMP 97; O2SAT 96
[2024-04-17] MEDS ORDERED: PILL CUTTER 1 EACH XX PRN (12:05)
[2024-04-17 20:00] VITALS: BP 127/72; TEMP 96.9; O2SAT 91
[2024-04-18 04:00] VITALS: BP 128/73; TEMP 97; O2SAT 91
[2024-04-18 12:00] VITALS: BP 127/72; TEMP 97.2; O2SAT 99
[2024-04-18 20:00] VITALS: BP 121/67; TEMP 97.6; O2SAT 93
[2024-04-18] MEDS: SENNA 8.6 MG TAB (SENOKOT) PO SCH (20:47)
[2024-04-19 04:00] VITALS: BP 134/76; TEMP 97.4; O2SAT 92
[2024-04-19 12:00] VITALS: BP 133/71; TEMP 97.2; O2SAT 95
[2024-04-19 20:00] VITALS: BP 121/67; TEMP 97.7; O2SAT 91
[2024-04-20 04:00] VITALS: BP_SYST 135; BP_SYST 137; BP_DIAS 71; BP_DIAS 89; TEMP 97.7; TEMP 98.1; O2SAT 93; O2SAT 94
[2024-04-20 12:00] VITALS: BP 131/62; TEMP 97.6; O2SAT 95
[2024-04-20 16:39] LABS: KETONE, URINE AUTO RFX NEGATIVE (NEGATIVE); LEUKOCYTE ESTERASE UR AUTO RFX NEGATIVE (NEGATIVE); NITRITE, URINE AUTO RFX NEGATIVE (NEGATIVE)
[2024-04-20 20:00] VITALS: BP 134/67; TEMP 97.3; O2SAT 93
[2024-04-20] MEDS: TAMSULOSIN 0.4 MG CAP PO SCH (21:18)
[2024-04-21] MEDS: oxyCODONE 5MG TAB PO PRN (00:11)
[2024-04-21 04:00] VITALS: BP 123/69; TEMP 97.6; O2SAT 93
[2024-04-21 12:00] VITALS: BP 126/65; TEMP 96.1; O2SAT 95
[2024-04-21] MEDS ORDERED: ACET-683 PO (12:34)
[2024-04-21] MEDS ORDERED: FLOM0.4C39 PO (12:45)
[2024-04-21] MEDS ORDERED: SENO8.6T5 PO (12:45)
[2024-04-21] MEDS ORDERED: ELIQ5TAB PO (12:45)
[2024-04-21] MEDS ORDERED: CYMB1CAP5 PO (12:45)
[2024-04-21] MEDS ORDERED: LYRI75CA PO (12:45)
[2024-04-21] MEDS ORDERED: INSUDET SC (12:45)
[2024-04-21] MEDS ORDERED: TRAM50TA2 PO (12:45)
[2024-04-21] MEDS: APIXABAN 5 MG TAB (ELIQUIS) PO ONE (12:53)
[2024-04-21 20:00] VITALS: BP 151/80; TEMP 98.1; O2SAT 93
[2024-04-21] MEDS: APIXABAN 5 MG TAB (ELIQUIS) PO SCH (20:45)
[2024-04-22 04:00] VITALS: BP 134/78; TEMP 97.9; O2SAT 94
[2024-04-22 12:00] VITALS: BP 128/60; TEMP 97.6; O2SAT 97
[2024-04-22] MEDS ORDERED: BASA100I SC (15:41)
[2024-04-22] MEDS ORDERED: PEN-308 SC (15:51)
== END 2024-04-22 13:37 | disposition home health service (06) | DRG 561 ==
LOC: UNDOADMIN 14:10 → M PM&R 14:10 → UNDOADMIN 14:15 → UNDODISIN 04-22 13:37
PROVIDERS: ADMIT Physical Medicine & Rehabilitation; ATTEND Physical Medicine & Rehabilitation
DX: S82.302D Unspecified fracture of lower end of left tibia, subsequent encounter for closed fracture with routine healing (principal); S82.832D Other fracture of upper and lower end of left fibula, subsequent encounter for closed fracture with routine healing; E11.9 Type 2 diabetes mellitus without complications; K21.9 Gastro-esophageal reflux disease without esophagitis; R31.9 Hematuria, unspecified; G31.84 Mild cognitive impairment of uncertain or unknown etiology; I10 Essential (primary) hypertension; R33.9 Retention of urine, unspecified; Z74.1 Need for assistance with personal care; Z74.09 Other reduced mobility; Z79.01 Long term (current) use of anticoagulants; Z79.4 Long term (current) use of insulin; Z79.899 Other long term (current) drug therapy; Z86.718 Personal history of other venous thrombosis and embolism; Z86.711 Personal history of pulmonary embolism; Z48.01 Encounter for change or removal of surgical wound dressing

== ENCOUNTER → 2024-04-25 | Outpatient (CLI) | payer MEDICARE, MEDICAID ==
[~2024-04-25] MED LIST changes: +ACET-683 PO; +BASA100I SC; +CYMB1CAP5 PO; +FLOM0.4C39 PO; +LYRI75CA PO; +PEN-308 SC; +SENO8.6T5 PO; +TRAM50TA2 PO
== END ==
LOC: M SOG 07:53
PROVIDERS: ATTEND Physician Assistant
DX: S82.202A Unspecified fracture of shaft of left tibia, initial encounter for closed fracture (principal); Z53.9 Procedure and treatment not carried out, unspecified reason

== ENCOUNTER → 2024-05-04 | Outpatient (CLI) | payer MEDICARE, MEDICAID | LOC: M SOG 07:54 | PROVIDERS: ATTEND Physician Assistant | DX: S82.202A Unspecified fracture of shaft of left tibia, initial encounter for closed fracture (principal); Z53.9 Procedure and treatment not carried out, unspecified reason ==

== ENCOUNTER → 2024-05-08 | Outpatient (CLI) | payer MEDICARE, MEDICAID | LOC: M SOG 07:54 | PROVIDERS: ATTEND Physician Assistant | DX: S82.202D Unspecified fracture of shaft of left tibia, subsequent encounter for closed fracture with routine healing (principal) ==

== ENCOUNTER → 2024-06-12 | Outpatient (CLI) | payer MEDICARE, MEDICAID | LOC: M SOG 07:54 | PROVIDERS: ATTEND Physician Assistant | DX: S82.202D Unspecified fracture of shaft of left tibia, subsequent encounter for closed fracture with routine healing (principal) ==

== ENCOUNTER → 2024-07-03 | Outpatient (REF) | payer MEDICARE, MEDICAID ==
[2024-07-03 15:48] LABS: ALBUMIN 3.7 G/DL (3.2-5.2); ALKALINE PHOSPHATASE 86 U/L (35-104); ALT/SGPT 15 U/L (7.0-40); AST/SGOT 15 U/L (<34); BILIRUBIN,TOTAL 0.5 MG/DL (0.3-1.2); BLOOD UREA NITROGEN 13 MG/DL (9-23); CALCIUM LEVEL 9.8 MG/DL (8.3-10.6); CARBON DIOXIDE LEVEL 21 MMOL/L (20-31); CHLORIDE LEVEL 106 MMOL/L (98-107); CHOLESTEROL LEVEL 211 MG/DL (<200); CREATININE FOR GFR 0.68 MG/DL (0.55-1.30); GLOMERULAR FILTRATION RATE > 60.0 (>45); GLUCOSE, FASTING 139 MG/DL (74-106); LDL CHOLESTEROL 135.2 MG/DL (<100); POTASSIUM SERUM 4.3 MMOL/L (3.5-5.1); SODIUM LEVEL 141 MMOL/L (136-145); THYROID STIMULATING HORMONE 1.548 uIU/ML (0.55-4.78); TOTAL PROTEIN 7.3 G/DL (5.7-8.2); TRIGLYCERIDES LEVEL 94 MG/DL (<150)
[2024-07-03 16:07] LABS: HEMOGLOBIN A1c 6.5 % (4.0-6.0)
== END ==
LOC: M LAB REF 12:31
PROVIDERS: ATTEND Family Medicine Addiction Medicine
DX: E11.9 Type 2 diabetes mellitus without complications (principal)

== ENCOUNTER 2024-07-05 17:18 | Inpatient (IN) | payer MEDICARE, MEDICAID ==
[~2024-07-05] VITALS: Ht 162.6 cm; Wt 53.5 kg
[~2024-07-05 17:18] MED LIST changes: +VANCOMYCIN HCL 750 MG, VIAL MATE ADAPTER 1 EACH in NS 250 ML IV SCH
[2024-07-05 19:09] LABS: HEMATOCRIT 48.5 % (36.0-47.0); HEMOGLOBIN 16.6 g/dl (12.0-15.5); MEAN CORPUSCULAR HEMOGLOBIN 28.5 pg (27.0-33.0); MEAN CORPUSCULAR HGB CONC 34.2 g/dl (32.0-36.5); MEAN CORPUSCULAR VOLUME 83.2 fl (80.0-96.0); PLATELET COUNT, AUTOMATED 411 10^3/uL (150-450); RED BLOOD COUNT 5.83 10^6/uL (4.00-5.40); WHITE BLOOD COUNT 10.3 10^3/uL (4.0-10.0)
[2024-07-05 19:28] LABS: BLOOD UREA NITROGEN 20 MG/DL (9-23); CALCIUM LEVEL 10.3 MG/DL (8.3-10.6); CARBON DIOXIDE LEVEL 20 MMOL/L (20-31); CHLORIDE LEVEL 108 MMOL/L (98-107); CREATININE FOR GFR 0.62 MG/DL (0.55-1.30); GLOMERULAR FILTRATION RATE > 60.0 (>45); GLUCOSE, FASTING 136 MG/DL (74-106); POTASSIUM SERUM 3.8 MMOL/L (3.5-5.1); SODIUM LEVEL 141 MMOL/L (136-145)
[2024-07-05] MEDS: MORPHINE 2 MG/ML 1ML VIAL IV ONE (20:26)
[2024-07-05 20:37] LABS: C REACTIVE PROTEIN QUANTITATIV < 0.50 MG/DL (<1.0)
[2024-07-05 20:47] LABS: ERYTHROCYTE SEDIMENTATION RATE 27 mm/hr (0-30)
[2024-07-05 20:55] LABS: INR 1.05; PARTIAL THROMBOPLASTIN TIME 28.3 SECONDS (24.8-34.2)
[2024-07-05] MEDS ORDERED: ELIQ5TAB PO (20:57)
[2024-07-05] MEDS ORDERED: CYMB1CAP5 PO (20:57)
[2024-07-05] MEDS ORDERED: HOME MED LIST COMPLETE! XX SCH (21:00)
[2024-07-05] MEDS: ACETAMINOPHEN *IV* 1,000 MG in IV 1 EA IV ONE (21:52)
[2024-07-05] MEDS: ceFAZolin SOD 1 GM in DEXTROSE 5% (D5W) ADV/MINI-BAG 50 ML IV ONE (22:28)
[2024-07-05] MEDS ORDERED: GLUCOSE 4 GM CHEW PO PRN (22:30)
[2024-07-05] MEDS ORDERED: GLUCAGON INJ 1MG VIAL SC PRN (22:30)
[2024-07-05] MEDS ORDERED: DEXTROSE 50% 50ML SYRINGE IV PRN (22:30)
[2024-07-06] MEDS: INSULIN LISPRO (NovoLOG) PER UNIT SC SCH
[2024-07-06] MEDS: MORPHINE 4 MG/ML 1ML VIAL IV PRN (00:05)
[2024-07-06] MEDS: VANCOMYCIN HCL 1,000 MG, VIAL MATE ADAPTER 1 EACH in NS 250 ML IV ONE (00:49)
[2024-07-06] MEDS: NS (Normal Saline) 0.9% 1,000 ML IV SCH ×2 (04:48→10:30)
[2024-07-06 06:52] LABS: BASO % 0.6 % (0.0-1.0); EOS % 0.6 % (0.0-3.0); HEMATOCRIT 44.5 % (36.0-47.0); HEMOGLOBIN 14.8 g/dl (12.0-15.5); LYMPH # 1.5 10^3/uL (1.5-5.0); LYMPH % 21.4 % (24.0-44.0); MEAN CORPUSCULAR HEMOGLOBIN 28.4 pg (27.0-33.0); MEAN CORPUSCULAR HGB CONC 33.3 g/dl (32.0-36.5); MEAN CORPUSCULAR VOLUME 85.4 fl (80.0-96.0); MONO # 0.7 10^3/uL (0.0-0.8); MONO % 9.4 % (2.0-8.0); NEUTROPHILS # 4.7 10^3/uL (1.5-8.5); NEUTROPHILS % 67.6 % (36.0-66.0); PLATELET COUNT, AUTOMATED 329 10^3/uL (150-450); RED BLOOD COUNT 5.21 10^6/uL (4.00-5.40); WHITE BLOOD COUNT 6.9 10^3/uL (4.0-10.0)
[2024-07-06 07:24] LABS: ALBUMIN 3.1 G/DL (3.2-5.2); ALKALINE PHOSPHATASE 73 U/L (35-104); ALT/SGPT 11 U/L (7.0-40); AST/SGOT 10 U/L (<34); BILIRUBIN,TOTAL 0.4 MG/DL (0.3-1.2); BLOOD UREA NITROGEN 13 MG/DL (9-23); CALCIUM LEVEL 9.3 MG/DL (8.3-10.6); CARBON DIOXIDE LEVEL 24 MMOL/L (20-31); CHLORIDE LEVEL 108 MMOL/L (98-107); CREATININE FOR GFR 0.62 MG/DL (0.55-1.30); GLOMERULAR FILTRATION RATE > 60.0 (>45); GLUCOSE, FASTING 138 MG/DL (74-106); POTASSIUM SERUM 3.9 MMOL/L (3.5-5.1); SODIUM LEVEL 143 MMOL/L (136-145); TOTAL PROTEIN 6.3 G/DL (5.7-8.2)
[2024-07-06] MEDS: KETOROLAC 30 MG/ML 1ML VIAL IV PRN (08:09)
[2024-07-06] MEDS: cefTRIAXone SOD 1 GM in DEXTROSE 5% (D5W) ADV/MINI-BAG 50 ML IV SCH (08:11)
[2024-07-06] MEDS: PANTOPRAZOLE 40MG VIAL IV SCH (08:51)
[2024-07-06] MEDS: VANCOMYCIN HCL 1,000 MG, VIAL MATE ADAPTER 1 EACH in NS 250 ML IV SCH (09:04)
[2024-07-06] MEDS ORDERED: VANCOMYCIN HCL 750 MG, VIAL MATE ADAPTER 1 EACH in NS 250 ML IV SCH (10:00)
[2024-07-06 14:15] VITALS: BP 125/70; TEMP 97.9; O2SAT 97
[2024-07-06] MEDS ORDERED: ACETAMINOPHEN 1000MG/100ML IV BAG As Ordered ONE (17:09)
[2024-07-06] MEDS ORDERED: SUGAMMADEX SODIUM 500 MG/5 ML VIAL (BRIDION) As Ordered ONE (17:47)
[2024-07-06] MEDS ORDERED: fentaNYL 100 MCG/2 ML INJECTION As Ordered ONE (17:47)
[2024-07-06] MEDS ORDERED: MIDAZOLAM INJ 2MG/2ML VIAL As Ordered ONE (17:47)
[2024-07-06] MEDS ORDERED: propofoL 200 MG/20 ML VIAL As Ordered ONE (17:47)
[2024-07-06] MEDS ORDERED: LIDOCAINE 2% 100MG/5ML SDV (FOR ANES.) As Ordered ONE (17:47)
[2024-07-06] MEDS ORDERED: dexmedeTOMIDine (4MCG/ML)200MCG/50ML BTL (PRECEDEX) As Ordered ONE (17:47)
[2024-07-06] MEDS ORDERED: METOCLOPRAMIDE INJ 10MG/2ML VIAL As Ordered ONE (17:47)
[2024-07-06] MEDS ORDERED: ONDANSETRON 4MG 2ML VIAL As Ordered ONE (17:47)
[2024-07-06] MEDS ORDERED: ROCURONIUM BROMIDE 50MG/5ML VIAL As Ordered ONE (17:47)
[2024-07-06] MEDS ORDERED: ePHEDrine SULFATE 25 MG/5 ML(5MG/ML) SYRINGE As Ordered ONE (17:54)
[2024-07-06] MEDS ORDERED: PHENYLephrine 500MCG 5ML (100MCG/ML) SYRINGE As Ordered ONE (17:54)
[2024-07-06] MEDS: ceFAZolin 2 GM/D5W 50 ML IV BAG As Ordered ONE (18:04)
[2024-07-06] MEDS ORDERED: DESFLURANE 240 ML INHALANT As Ordered ONE (18:06)
[2024-07-06] MEDS ORDERED: SEVOFLURANE INHAL SOLN 250 ML BTL As Ordered ONE (18:08)
[2024-07-06] MEDS ORDERED: METOCLOPRAMIDE INJ 10MG/2ML VIAL IV PRN (18:20)
[2024-07-06] MEDS ORDERED: GLUCOSE 4 GM CHEW PO PRN (18:20)
[2024-07-06] MEDS ORDERED: DEXTROSE 50% 50ML SYRINGE IV PRN (18:20)
[2024-07-06] MEDS ORDERED: INSULIN LISPRO (NovoLOG) PER UNIT SC PRN (18:20)
[2024-07-06] MEDS ORDERED: fentaNYL 100 MCG/2 ML INJECTION IV PRN (18:20)
[2024-07-06] MEDS ORDERED: GLUCAGON INJ 1MG VIAL SC PRN (18:20)
[2024-07-06] MEDS: LR 1,000 ML IV SCH (18:42)
[2024-07-06] MEDS: oxyCODONE 5MG TAB PO PRN (18:42)
[2024-07-06] MEDS: HYDROMORPHONE HCL 0.5 MG/ 0.5 ML SYRINGE IV PRN (18:47)
[2024-07-06] MEDS: ONDANSETRON 4MG 2ML VIAL IV PRN ×2 (19:16→23:26)
[2024-07-06 20:00] VITALS: TEMP 97.5; O2SAT 98
[2024-07-06 20:50] VITALS: BP 129/67; TEMP 97.7; O2SAT 98
[2024-07-06] MEDS: METOCLOPRAMIDE INJ 10MG/2ML VIAL IV ONE (21:06)
[2024-07-06 22:00] VITALS: BP 122/64; TEMP 97.7; O2SAT 98
[2024-07-06 23:00] VITALS: BP 122/63; TEMP 97.9; O2SAT 97
[2024-07-07] VITALS (7 sets, daily range): BP systolic 111–135; BP diastolic 60–77; TEMP 97.5–98.1; O2SAT 93–97
[2024-07-07] MEDS: MORPHINE 2 MG/ML 1ML VIAL IV PRN (05:40)
[2024-07-07 08:46] LABS: HEMATOCRIT 41.6 % (36.0-47.0); MEAN CORPUSCULAR HEMOGLOBIN 28.7 pg (27.0-33.0); MEAN CORPUSCULAR HGB CONC 33.7 g/dl (32.0-36.5); MEAN CORPUSCULAR VOLUME 85.2 fl (80.0-96.0); PLATELET COUNT, AUTOMATED 316 10^3/uL (150-450); RED BLOOD COUNT 4.88 10^6/uL (4.00-5.40); WHITE BLOOD COUNT 9.7 10^3/uL (4.0-10.0)
[2024-07-07 09:27] LABS: ALBUMIN 2.8 G/DL (3.2-5.2); ALKALINE PHOSPHATASE 71 U/L (35-104); ALT/SGPT 11 U/L (7.0-40); AST/SGOT 14 U/L (<34); BILIRUBIN,TOTAL 0.5 MG/DL (0.3-1.2); BLOOD UREA NITROGEN 8 MG/DL (9-23); C REACTIVE PROTEIN QUANTITATIV 1.25 MG/DL (<1.0); CALCIUM LEVEL 8.7 MG/DL (8.3-10.6); CARBON DIOXIDE LEVEL 22 MMOL/L (20-31); CHLORIDE LEVEL 109 MMOL/L (98-107); CREATININE FOR GFR 0.62 MG/DL (0.55-1.30); GLOMERULAR FILTRATION RATE > 60.0 (>45); GLUCOSE, FASTING 113 MG/DL (74-106); POTASSIUM SERUM 3.8 MMOL/L (3.5-5.1); SODIUM LEVEL 143 MMOL/L (136-145); TOTAL PROTEIN 5.8 G/DL (5.7-8.2)
[2024-07-07 09:40] LABS: HEMOGLOBIN A1c 6.4 % (4.0-6.0)
[2024-07-07] MEDS ORDERED: ENOXAPARIN 40MG/0.4ML SYRINGE (J1650 PER 10MG) SC SCH (13:50)
[2024-07-07] MEDS ORDERED: MOM 30ML SUSPENSION UDC PO PRN (14:00)
[2024-07-07] MEDS: ENOXAPARIN 60MG/0.6ML SYRINGE (J1650 PER 10MG) SC SCH (14:41)
[2024-07-07] MEDS: PERCOCET 5MG/325MG TAB PO PRN ×2 (14:46→20:41)
[2024-07-07] MEDS: INSULIN LISPRO (NovoLOG) PER UNIT SC SCH ×2 (18:05→21:00)
[2024-07-07] MEDS: OMEPRAZOLE 20MG CAP PO SCH (20:39)
[2024-07-07] MEDS: DOCUSATE SODIUM 100MG CAPSULE PO SCH (20:39)
[2024-07-07] MEDS: TAMSULOSIN 0.4 MG CAP PO SCH (20:40)
[2024-07-07] MEDS: SENNA 8.6 MG TAB (SENOKOT) PO SCH (20:47)
[2024-07-07] MEDS: VANCOMYCIN HCL 1,000 MG, VIAL MATE ADAPTER 1 EACH in NS 250 ML IV SCH (21:03)
[2024-07-08 04:00] VITALS: BP 119/82; TEMP 97.5; O2SAT 94
[2024-07-08 06:22] LABS: HEMATOCRIT 38.4 % (36.0-47.0); HEMOGLOBIN 12.5 g/dl (12.0-15.5); MEAN CORPUSCULAR HEMOGLOBIN 28.7 pg (27.0-33.0); MEAN CORPUSCULAR HGB CONC 32.6 g/dl (32.0-36.5); MEAN CORPUSCULAR VOLUME 88.1 fl (80.0-96.0); PLATELET COUNT, AUTOMATED 264 10^3/uL (150-450); RED BLOOD COUNT 4.36 10^6/uL (4.00-5.40)
[2024-07-08 06:47] LABS: C REACTIVE PROTEIN QUANTITATIV 2.44 MG/DL (<1.0)
[2024-07-08 06:48] LABS: ALBUMIN 2.3 G/DL (3.2-5.2); ALKALINE PHOSPHATASE 61 U/L (35-104); ALT/SGPT 9 U/L (7.0-40); AST/SGOT 10 U/L (<34); BILIRUBIN,TOTAL 0.2 MG/DL (0.3-1.2); BLOOD UREA NITROGEN 9 MG/DL (9-23); CARBON DIOXIDE LEVEL 26 MMOL/L (20-31); CHLORIDE LEVEL 110 MMOL/L (98-107); CREATININE FOR GFR 0.59 MG/DL (0.55-1.30); GLOMERULAR FILTRATION RATE > 60.0 (>45); GLUCOSE, FASTING 134 MG/DL (74-106); POTASSIUM SERUM 4.1 MMOL/L (3.5-5.1); SODIUM LEVEL 145 MMOL/L (136-145)
[2024-07-08] MEDS: DULoxetine 30MG CAPSULE (CYMBALTA) PO SCH (08:18)
[2024-07-08] MEDS: LEVEMIR (INSULIN DETEMIR) 1 UNITS/0.01ML SC SCH (08:19)
[2024-07-08 08:23] VITALS: BP 121/74; TEMP 97.9; O2SAT 96
[2024-07-08 12:50] VITALS: BP 140/73; TEMP 97.7; O2SAT 95
[2024-07-08] MEDS: VANCOMYCIN HCL 750 MG, VIAL MATE ADAPTER 1 EACH in NS 250 ML IV SCH (14:01)
[2024-07-08 16:50] VITALS: BP 136/76; TEMP 97; O2SAT 96
[2024-07-08 20:21] VITALS: BP 126/74; TEMP 97; O2SAT 95
[2024-07-09 04:20] VITALS: BP 120/68; TEMP 97.7; O2SAT 95
[2024-07-09 06:59] LABS: HEMATOCRIT 37.3 % (36.0-47.0); HEMOGLOBIN 12.2 g/dl (12.0-15.5); MEAN CORPUSCULAR HEMOGLOBIN 28.2 pg (27.0-33.0); MEAN CORPUSCULAR HGB CONC 32.7 g/dl (32.0-36.5); MEAN CORPUSCULAR VOLUME 86.3 fl (80.0-96.0); PLATELET COUNT, AUTOMATED 266 10^3/uL (150-450); RED BLOOD COUNT 4.32 10^6/uL (4.00-5.40); WHITE BLOOD COUNT 5.5 10^3/uL (4.0-10.0)
[2024-07-09 07:22] LABS: ALBUMIN 2.2 G/DL (3.2-5.2); ALKALINE PHOSPHATASE 59 U/L (35-104); ALT/SGPT 12 U/L (7.0-40); AST/SGOT 10 U/L (<34); BILIRUBIN,TOTAL 0.3 MG/DL (0.3-1.2); BLOOD UREA NITROGEN 6 MG/DL (9-23); C REACTIVE PROTEIN QUANTITATIV 1.51 MG/DL (<1.0); CALCIUM LEVEL 8.5 MG/DL (8.3-10.6); CARBON DIOXIDE LEVEL 26 MMOL/L (20-31); CHLORIDE LEVEL 109 MMOL/L (98-107); CREATININE FOR GFR 0.59 MG/DL (0.55-1.30); GLOMERULAR FILTRATION RATE > 60.0 (>45); GLUCOSE, FASTING 118 MG/DL (74-106); POTASSIUM SERUM 3.7 MMOL/L (3.5-5.1); SODIUM LEVEL 144 MMOL/L (136-145); TOTAL PROTEIN 5.2 G/DL (5.7-8.2)
[2024-07-09 12:40] VITALS: BP 130/70; TEMP 97.7; O2SAT 91
[2024-07-09 20:39] VITALS: BP 134/76; TEMP 97; O2SAT 93
[2024-07-10 03:41] VITALS: BP 118/70; TEMP 97.5; O2SAT 96
[2024-07-10 06:35] LABS: HEMATOCRIT 40.1 % (36.0-47.0); HEMOGLOBIN 13.3 g/dl (12.0-15.5); MEAN CORPUSCULAR HEMOGLOBIN 28.8 pg (27.0-33.0); MEAN CORPUSCULAR HGB CONC 33.2 g/dl (32.0-36.5); MEAN CORPUSCULAR VOLUME 86.8 fl (80.0-96.0); PLATELET COUNT, AUTOMATED 261 10^3/uL (150-450); RED BLOOD COUNT 4.62 10^6/uL (4.00-5.40); WHITE BLOOD COUNT 5.8 10^3/uL (4.0-10.0)
[2024-07-10 06:58] LABS: C REACTIVE PROTEIN QUANTITATIV 0.77 MG/DL (<1.0)
[2024-07-10 07:07] LABS: ALBUMIN 2.4 G/DL (3.2-5.2); ALKALINE PHOSPHATASE 63 U/L (35-104); ALT/SGPT 16 U/L (7.0-40); AST/SGOT 15 U/L (<34); BILIRUBIN,TOTAL 0.2 MG/DL (0.3-1.2); BLOOD UREA NITROGEN 8 MG/DL (9-23); CALCIUM LEVEL 8.7 MG/DL (8.3-10.6); CARBON DIOXIDE LEVEL 29 MMOL/L (20-31); CHLORIDE LEVEL 107 MMOL/L (98-107); CREATININE FOR GFR 0.59 MG/DL (0.55-1.30); GLOMERULAR FILTRATION RATE > 60.0 (>45); GLUCOSE, FASTING 105 MG/DL (74-106); POTASSIUM SERUM 4.5 MMOL/L (3.5-5.1); SODIUM LEVEL 143 MMOL/L (136-145); TOTAL PROTEIN 5.4 G/DL (5.7-8.2)
[2024-07-10 12:00] VITALS: BP 155/81; TEMP 97.3; O2SAT 94
[2024-07-10 18:08] LABS: KETONE, URINE AUTO RFX NEGATIVE (NEGATIVE); NITRITE, URINE AUTO RFX NEGATIVE (NEGATIVE); RBC, URINE AUTO RFX 1 /HPF (0-3); SQUAM EPITHELIAL CELL UR AURFX 3 /HPF (0-6); WBC, URINE AUTO RFX 8 /HPF (0-3)
[2024-07-10 18:11] LABS: LEUKOCYTE ESTERASE UR AUTO RFX 1+ (NEGATIVE)
[2024-07-10 20:00] VITALS: BP 166/91; TEMP 97.3; O2SAT 95
[2024-07-10 21:00] VITALS: O2SAT 95
[2024-07-11 04:24] VITALS: BP 139/77; TEMP 97.7; O2SAT 95
[2024-07-11 07:35] LABS: HEMATOCRIT 39.8 % (36.0-47.0); HEMOGLOBIN 13.3 g/dl (12.0-15.5); MEAN CORPUSCULAR HEMOGLOBIN 28.2 pg (27.0-33.0); MEAN CORPUSCULAR HGB CONC 33.4 g/dl (32.0-36.5); MEAN CORPUSCULAR VOLUME 84.3 fl (80.0-96.0); PLATELET COUNT, AUTOMATED 316 10^3/uL (150-450); RED BLOOD COUNT 4.72 10^6/uL (4.00-5.40); WHITE BLOOD COUNT 5.6 10^3/uL (4.0-10.0)
[2024-07-11 08:13] LABS: ALBUMIN 2.6 G/DL (3.2-5.2); ALKALINE PHOSPHATASE 67 U/L (35-104); ALT/SGPT 18 U/L (7.0-40); AST/SGOT 16 U/L (<34); BILIRUBIN,TOTAL 0.2 MG/DL (0.3-1.2); BLOOD UREA NITROGEN 10 MG/DL (9-23); CALCIUM LEVEL 9.1 MG/DL (8.3-10.6); CARBON DIOXIDE LEVEL 29 MMOL/L (20-31); CHLORIDE LEVEL 104 MMOL/L (98-107); CREATININE FOR GFR 0.53 MG/DL (0.55-1.30); GLOMERULAR FILTRATION RATE > 60.0 (>45); GLUCOSE, FASTING 121 MG/DL (74-106); POTASSIUM SERUM 4.2 MMOL/L (3.5-5.1); SODIUM LEVEL 140 MMOL/L (136-145); TOTAL PROTEIN 5.6 G/DL (5.7-8.2)
[2024-07-11 12:00] VITALS: BP 130/78; TEMP 97.5; O2SAT 97
[2024-07-11 19:53] VITALS: BP 136/77; TEMP 97.3; O2SAT 96
[2024-07-12 04:16] VITALS: BP 151/81; TEMP 97.7; O2SAT 94
[2024-07-12 06:06] LABS: BASO % 0.6 % (0.0-1.0); EOS # 0.2 10^3/uL (0.0-0.5); EOS % 2.6 % (0.0-3.0); HEMATOCRIT 40.7 % (36.0-47.0); HEMOGLOBIN 13.7 g/dl (12.0-15.5); LYMPH # 1.7 10^3/uL (1.5-5.0); LYMPH % 27.1 % (24.0-44.0); MEAN CORPUSCULAR HEMOGLOBIN 28.8 pg (27.0-33.0); MEAN CORPUSCULAR HGB CONC 33.7 g/dl (32.0-36.5); MEAN CORPUSCULAR VOLUME 85.7 fl (80.0-96.0); MONO # 0.4 10^3/uL (0.0-0.8); NEUTROPHILS # 3.9 10^3/uL (1.5-8.5); NEUTROPHILS % 62.5 % (36.0-66.0); PLATELET COUNT, AUTOMATED 317 10^3/uL (150-450); RED BLOOD COUNT 4.75 10^6/uL (4.00-5.40); WHITE BLOOD COUNT 6.2 10^3/uL (4.0-10.0)
[2024-07-12 06:41] LABS: BLOOD UREA NITROGEN 12 MG/DL (9-23); CALCIUM LEVEL 8.9 MG/DL (8.3-10.6); CARBON DIOXIDE LEVEL 28 MMOL/L (20-31); CHLORIDE LEVEL 107 MMOL/L (98-107); CREATININE FOR GFR 0.56 MG/DL (0.55-1.30); GLOMERULAR FILTRATION RATE > 60.0 (>45); GLUCOSE, FASTING 120 MG/DL (74-106); POTASSIUM SERUM 4.3 MMOL/L (3.5-5.1); SODIUM LEVEL 142 MMOL/L (136-145)
[2024-07-12 12:00] VITALS: BP 114/65; TEMP 97.7; O2SAT 96
[2024-07-12 20:35] VITALS: BP 147/81; TEMP 97.9; O2SAT 96
[2024-07-13] VITALS (7 sets, daily range): BP systolic 117–150; BP diastolic 63–89; TEMP 97–97.7; O2SAT 95–97
[2024-07-13 06:41] LABS: BASO % 0.5 % (0.0-1.0); EOS # 0.1 10^3/uL (0.0-0.5); EOS % 1.8 % (0.0-3.0); HEMATOCRIT 41.2 % (36.0-47.0); HEMOGLOBIN 13.8 g/dl (12.0-15.5); LYMPH # 1.5 10^3/uL (1.5-5.0); LYMPH % 22.5 % (24.0-44.0); MEAN CORPUSCULAR HEMOGLOBIN 28.6 pg (27.0-33.0); MEAN CORPUSCULAR HGB CONC 33.5 g/dl (32.0-36.5); MEAN CORPUSCULAR VOLUME 85.3 fl (80.0-96.0); MONO # 0.4 10^3/uL (0.0-0.8); MONO % 6.2 % (2.0-8.0); NEUTROPHILS # 4.5 10^3/uL (1.5-8.5); NEUTROPHILS % 68.5 % (36.0-66.0); PLATELET COUNT, AUTOMATED 340 10^3/uL (150-450); RED BLOOD COUNT 4.83 10^6/uL (4.00-5.40); WHITE BLOOD COUNT 6.6 10^3/uL (4.0-10.0)
[2024-07-13 07:12] LABS: BLOOD UREA NITROGEN 12 MG/DL (9-23); C REACTIVE PROTEIN QUANTITATIV < 0.50 MG/DL (<1.0); CARBON DIOXIDE LEVEL 24 MMOL/L (20-31); CHLORIDE LEVEL 106 MMOL/L (98-107); CREATININE FOR GFR 0.54 MG/DL (0.55-1.30); GLOMERULAR FILTRATION RATE > 60.0 (>45); GLUCOSE, FASTING 117 MG/DL (74-106); POTASSIUM SERUM 4.5 MMOL/L (3.5-5.1); SODIUM LEVEL 142 MMOL/L (136-145)
[2024-07-13] MEDS ORDERED: fentaNYL 250 MCG/5 ML INJECTION As Ordered ONE (10:02)
[2024-07-13] MEDS: BUPivacaine LIPOSOME/PF 266MG 20ML VIAL (13.3MG/ML)(EXPAREL) As Ordered ONE (13:20)
[2024-07-13] MEDS: GENTAMICIN SULF 80MG/2ML VIAL As Ordered ONE (13:20)
[2024-07-13] MEDS ORDERED: fentaNYL 100 MCG/2 ML INJECTION IV PRN (14:10)
[2024-07-13] MEDS ORDERED: oxyCODONE 5MG TAB PO PRN (14:10)
[2024-07-13] MEDS ORDERED: ONDANSETRON 4MG 2ML VIAL IV PRN (14:10)
[2024-07-13] MEDS: NS (Normal Saline) 0.9% 1,000 ML IV SCH (14:10)
[2024-07-13] MEDS: HYDROMORPHONE HCL 0.5 MG/ 0.5 ML SYRINGE IV PRN (14:19)
[2024-07-13] MEDS: VANCOMYCIN HCL 750 MG, VIAL MATE ADAPTER 1 EACH in NS 250 ML IV SCH (15:25)
[2024-07-13 16:50] LABS: CPK CREATINE PHOSPHOKINASE 33 U/L (34-145)
[2024-07-14 04:00] VITALS: BP 125/67; TEMP 97.7; O2SAT 95
[2024-07-14 07:09] LABS: BASO % 0.6 % (0.0-1.0); EOS # 0.1 10^3/uL (0.0-0.5); EOS % 1.5 % (0.0-3.0); HEMATOCRIT 39.5 % (36.0-47.0); HEMOGLOBIN 13.2 g/dl (12.0-15.5); LYMPH # 1.3 10^3/uL (1.5-5.0); LYMPH % 20.2 % (24.0-44.0); MEAN CORPUSCULAR HEMOGLOBIN 28.5 pg (27.0-33.0); MEAN CORPUSCULAR HGB CONC 33.4 g/dl (32.0-36.5); MEAN CORPUSCULAR VOLUME 85.3 fl (80.0-96.0); MONO # 0.5 10^3/uL (0.0-0.8); MONO % 6.9 % (2.0-8.0); NEUTROPHILS # 4.7 10^3/uL (1.5-8.5); NEUTROPHILS % 70.5 % (36.0-66.0); PLATELET COUNT, AUTOMATED 324 10^3/uL (150-450); RED BLOOD COUNT 4.63 10^6/uL (4.00-5.40); WHITE BLOOD COUNT 6.7 10^3/uL (4.0-10.0)
[2024-07-14 07:41] LABS: BLOOD UREA NITROGEN 10 MG/DL (9-23); CALCIUM LEVEL 9.1 MG/DL (8.3-10.6); CARBON DIOXIDE LEVEL 27 MMOL/L (20-31); CHLORIDE LEVEL 105 MMOL/L (98-107); CREATININE FOR GFR 0.65 MG/DL (0.55-1.30); GLOMERULAR FILTRATION RATE > 60.0 (>45); GLUCOSE, FASTING 123 MG/DL (74-106); POTASSIUM SERUM 4.4 MMOL/L (3.5-5.1); SODIUM LEVEL 141 MMOL/L (136-145)
[2024-07-14 08:00] VITALS: BP 120/82; TEMP 97.7; O2SAT 96
[2024-07-14 08:56] VITALS: BP 123/69; TEMP 97.7; O2SAT 97
[2024-07-14] MEDS: DAPTOmycin 500 MG in NS 50 ML IV SCH (09:55)
[2024-07-14 12:01] VITALS: BP 122/86; TEMP 97.8
[2024-07-14 20:22] VITALS: BP 124/75; TEMP 97.3; O2SAT 95
[2024-07-15 04:58] VITALS: BP 124/74; TEMP 97.7; O2SAT 95
[2024-07-15 06:20] LABS: BASO % 0.5 % (0.0-1.0); EOS # 0.2 10^3/uL (0.0-0.5); EOS % 2.6 % (0.0-3.0); HEMATOCRIT 38.2 % (36.0-47.0); HEMOGLOBIN 12.9 g/dl (12.0-15.5); LYMPH # 1.7 10^3/uL (1.5-5.0); LYMPH % 30.6 % (24.0-44.0); MEAN CORPUSCULAR HEMOGLOBIN 28.7 pg (27.0-33.0); MEAN CORPUSCULAR HGB CONC 33.8 g/dl (32.0-36.5); MEAN CORPUSCULAR VOLUME 85.1 fl (80.0-96.0); MONO # 0.5 10^3/uL (0.0-0.8); MONO % 7.9 % (2.0-8.0); NEUTROPHILS # 3.3 10^3/uL (1.5-8.5); NEUTROPHILS % 58.2 % (36.0-66.0); PLATELET COUNT, AUTOMATED 335 10^3/uL (150-450); RED BLOOD COUNT 4.49 10^6/uL (4.00-5.40); WHITE BLOOD COUNT 5.7 10^3/uL (4.0-10.0)
[2024-07-15 06:42] LABS: BLOOD UREA NITROGEN 14 MG/DL (9-23); CALCIUM LEVEL 8.6 MG/DL (8.3-10.6); CARBON DIOXIDE LEVEL 25 MMOL/L (20-31); CHLORIDE LEVEL 105 MMOL/L (98-107); CREATININE FOR GFR 0.57 MG/DL (0.55-1.30); GLOMERULAR FILTRATION RATE > 60.0 (>45); GLUCOSE, FASTING 111 MG/DL (74-106); POTASSIUM SERUM 4.4 MMOL/L (3.5-5.1); SODIUM LEVEL 141 MMOL/L (136-145)
[2024-07-15] MEDS: ACETAMINOPHEN 500 MG TAB PO SCH (10:24)
[2024-07-15] MEDS: KETOROLAC TROMETHAMINE 10 MG TAB PO SCH (10:25)
[2024-07-15 12:10] VITALS: BP 125/75; TEMP 97.9; O2SAT 95
[2024-07-15] MEDS: PERCOCET 5MG/325MG TAB PO PRN (14:11)
[2024-07-15 19:56] VITALS: BP 125/75; TEMP 97; O2SAT 97
[2024-07-15] MEDS: MOM 30ML SUSPENSION UDC PO PRN (23:00)
[2024-07-16 03:36] VITALS: BP 143/82; TEMP 97.7; O2SAT 96
[2024-07-16 11:01] LABS: BASO % 0.4 % (0.0-1.0); EOS # 0.1 10^3/uL (0.0-0.5); HEMATOCRIT 41.4 % (36.0-47.0); HEMOGLOBIN 14.4 g/dl (12.0-15.5); LYMPH # 1.6 10^3/uL (1.5-5.0); LYMPH % 20.1 % (24.0-44.0); MEAN CORPUSCULAR HEMOGLOBIN 29.3 pg (27.0-33.0); MEAN CORPUSCULAR HGB CONC 34.8 g/dl (32.0-36.5); MEAN CORPUSCULAR VOLUME 84.1 fl (80.0-96.0); MONO # 0.6 10^3/uL (0.0-0.8); MONO % 7.4 % (2.0-8.0); NEUTROPHILS # 5.5 10^3/uL (1.5-8.5); NEUTROPHILS % 70.8 % (36.0-66.0); PLATELET COUNT, AUTOMATED 396 10^3/uL (150-450); RED BLOOD COUNT 4.92 10^6/uL (4.00-5.40); WHITE BLOOD COUNT 7.7 10^3/uL (4.0-10.0)
[2024-07-16 11:26] LABS: BLOOD UREA NITROGEN 15 MG/DL (9-23); CARBON DIOXIDE LEVEL 22 MMOL/L (20-31); CHLORIDE LEVEL 108 MMOL/L (98-107); CREATININE FOR GFR 0.53 MG/DL (0.55-1.30); GLOMERULAR FILTRATION RATE > 60.0 (>45); GLUCOSE, FASTING 167 MG/DL (74-106); POTASSIUM SERUM 4.5 MMOL/L (3.5-5.1); SODIUM LEVEL 140 MMOL/L (136-145)
[2024-07-16 12:00] VITALS: BP 144/78; TEMP 97.7; O2SAT 100
[2024-07-16 20:00] VITALS: BP 142/76; TEMP 97.7; O2SAT 97
[2024-07-17 04:54] VITALS: BP 147/84; TEMP 97.5; O2SAT 98
[2024-07-17 06:25] LABS: BASO % 0.5 % (0.0-1.0); EOS # 0.2 10^3/uL (0.0-0.5); EOS % 2.7 % (0.0-3.0); HEMATOCRIT 40.3 % (36.0-47.0); HEMOGLOBIN 13.5 g/dl (12.0-15.5); LYMPH # 1.5 10^3/uL (1.5-5.0); LYMPH % 27.1 % (24.0-44.0); MEAN CORPUSCULAR HEMOGLOBIN 28.8 pg (27.0-33.0); MEAN CORPUSCULAR HGB CONC 33.5 g/dl (32.0-36.5); MEAN CORPUSCULAR VOLUME 86.1 fl (80.0-96.0); MONO # 0.4 10^3/uL (0.0-0.8); MONO % 8.1 % (2.0-8.0); NEUTROPHILS # 3.3 10^3/uL (1.5-8.5); NEUTROPHILS % 61.2 % (36.0-66.0); PLATELET COUNT, AUTOMATED 366 10^3/uL (150-450); RED BLOOD COUNT 4.68 10^6/uL (4.00-5.40); WHITE BLOOD COUNT 5.5 10^3/uL (4.0-10.0)
[2024-07-17 06:44] LABS: BLOOD UREA NITROGEN 16 MG/DL (9-23); CALCIUM LEVEL 9.1 MG/DL (8.3-10.6); CARBON DIOXIDE LEVEL 23 MMOL/L (20-31); CHLORIDE LEVEL 111 MMOL/L (98-107); CREATININE FOR GFR 0.57 MG/DL (0.55-1.30); GLOMERULAR FILTRATION RATE > 60.0 (>45); GLUCOSE, FASTING 130 MG/DL (74-106); POTASSIUM SERUM 4.6 MMOL/L (3.5-5.1); SODIUM LEVEL 144 MMOL/L (136-145)
[2024-07-17 12:00] VITALS: BP 163/98; TEMP 97.5; O2SAT 96
[2024-07-17 12:41] VITALS: BP 165/90; TEMP 97.6; O2SAT 94
[2024-07-17 13:16] VITALS: BP 160/80
[2024-07-17 14:01] VITALS: BP 150/90
[2024-07-17 15:51] LABS: C REACTIVE PROTEIN QUANTITATIV < 0.50 MG/DL (<1.0); CPK CREATINE PHOSPHOKINASE 32 U/L (34-145)
[2024-07-17 20:00] VITALS: BP 131/72; TEMP 97.2
[2024-07-18 05:21] VITALS: BP 152/90; TEMP 97.9
[2024-07-18 06:09] LABS: BASO # 0.1 10^3/uL (0.0-0.2); BASO % 0.7 % (0.0-1.0); EOS # 0.2 10^3/uL (0.0-0.5); EOS % 2.8 % (0.0-3.0); LYMPH # 1.8 10^3/uL (1.5-5.0); LYMPH % 26.7 % (24.0-44.0); MEAN CORPUSCULAR HEMOGLOBIN 28.4 pg (27.0-33.0); MEAN CORPUSCULAR HGB CONC 32.6 g/dl (32.0-36.5); MEAN CORPUSCULAR VOLUME 87.2 fl (80.0-96.0); MONO # 0.5 10^3/uL (0.0-0.8); MONO % 7.2 % (2.0-8.0); NEUTROPHILS # 4.2 10^3/uL (1.5-8.5); NEUTROPHILS % 62.3 % (36.0-66.0); PLATELET COUNT, AUTOMATED 409 10^3/uL (150-450); RED BLOOD COUNT 4.93 10^6/uL (4.00-5.40); WHITE BLOOD COUNT 6.8 10^3/uL (4.0-10.0)
[2024-07-18 06:30] LABS: BLOOD UREA NITROGEN 17 MG/DL (9-23); CALCIUM LEVEL 9.5 MG/DL (8.3-10.6); CARBON DIOXIDE LEVEL 26 MMOL/L (20-31); CHLORIDE LEVEL 108 MMOL/L (98-107); CREATININE FOR GFR 0.59 MG/DL (0.55-1.30); GLOMERULAR FILTRATION RATE > 60.0 (>45); GLUCOSE, FASTING 119 MG/DL (74-106); POTASSIUM SERUM 4.7 MMOL/L (3.5-5.1); SODIUM LEVEL 143 MMOL/L (136-145)
[2024-07-18] MEDS: PERCOCET 5MG/325MG TAB PO PRN (10:20)
[2024-07-18 12:00] VITALS: BP 159/87; TEMP 98.2; O2SAT 96
[2024-07-18] MEDS ORDERED: MORPHINE 2 MG/ML 1ML VIAL IV PRN (17:45)
[2024-07-18] MEDS: GABAPENTIN 100 MG CAP PO SCH (21:42)
[2024-07-19 04:00] VITALS: BP 146/86; TEMP 97.9; O2SAT 98
[2024-07-19 20:00] VITALS: BP 135/79; TEMP 97.9; O2SAT 98
[2024-07-20 04:00] VITALS: BP 128/74; TEMP 97.5; O2SAT 96
[2024-07-20 08:23] LABS: HEMATOCRIT 45.1 % (36.0-47.0); HEMOGLOBIN 14.9 g/dl (12.0-15.5); MEAN CORPUSCULAR HEMOGLOBIN 28.4 pg (27.0-33.0); MEAN CORPUSCULAR VOLUME 85.9 fl (80.0-96.0); PLATELET COUNT, AUTOMATED 370 10^3/uL (150-450); RED BLOOD COUNT 5.25 10^6/uL (4.00-5.40); WHITE BLOOD COUNT 5.5 10^3/uL (4.0-10.0)
[2024-07-20 10:24] LABS: ALBUMIN 3.2 G/DL (3.2-5.2); ALKALINE PHOSPHATASE 72 U/L (35-104); ALT/SGPT 27 U/L (7.0-40); AST/SGOT 18 U/L (<34); BILIRUBIN,TOTAL 0.3 MG/DL (0.3-1.2); BLOOD UREA NITROGEN 20 MG/DL (9-23); CALCIUM LEVEL 9.5 MG/DL (8.3-10.6); CARBON DIOXIDE LEVEL 24 MMOL/L (20-31); CHLORIDE LEVEL 106 MMOL/L (98-107); GLOMERULAR FILTRATION RATE > 60.0 (>45); GLUCOSE, FASTING 142 MG/DL (74-106); SODIUM LEVEL 141 MMOL/L (136-145); TOTAL PROTEIN 6.9 G/DL (5.7-8.2)
[2024-07-20] MEDS: DOXYCYCLINE HYCLATE 100MG TABLET PO SCH (14:38)
[2024-07-20 18:43] VITALS: BP 127/81; TEMP 97.7; O2SAT 98
[2024-07-20 20:00] VITALS: BP 130/82; TEMP 97.5; O2SAT 99
[2024-07-21 04:00] VITALS: BP 136/77; TEMP 97.5; O2SAT 97
[2024-07-21 08:03] VITALS: BP 124/60; TEMP 97.9; O2SAT 97
[2024-07-21 13:23] VITALS: BP 136/84; TEMP 97.3; O2SAT 97
[2024-07-22 04:30] VITALS: BP 126/82; TEMP 97.9; O2SAT 97
[2024-07-22 07:56] LABS: HEMATOCRIT 45.1 % (36.0-47.0); HEMOGLOBIN 15.1 g/dl (12.0-15.5); MEAN CORPUSCULAR HGB CONC 33.5 g/dl (32.0-36.5); MEAN CORPUSCULAR VOLUME 86.6 fl (80.0-96.0); PLATELET COUNT, AUTOMATED 428 10^3/uL (150-450); RED BLOOD COUNT 5.21 10^6/uL (4.00-5.40); WHITE BLOOD COUNT 6.1 10^3/uL (4.0-10.0)
[2024-07-22 08:17] LABS: ALBUMIN 3.3 G/DL (3.2-5.2); ALKALINE PHOSPHATASE 73 U/L (35-104); ALT/SGPT 23 U/L (7.0-40); AST/SGOT 15 U/L (<34); BILIRUBIN,TOTAL 0.2 MG/DL (0.3-1.2); BLOOD UREA NITROGEN 17 MG/DL (9-23); CALCIUM LEVEL 10.2 MG/DL (8.3-10.6); CARBON DIOXIDE LEVEL 24 MMOL/L (20-31); CHLORIDE LEVEL 109 MMOL/L (98-107); CREATININE FOR GFR 0.56 MG/DL (0.55-1.30); GLOMERULAR FILTRATION RATE > 60.0 (>45); GLUCOSE, FASTING 127 MG/DL (74-106); POTASSIUM SERUM 4.7 MMOL/L (3.5-5.1); SODIUM LEVEL 142 MMOL/L (136-145)
[2024-07-23 04:26] VITALS: BP 111/70; TEMP 97.3; O2SAT 96
[2024-07-24 04:17] VITALS: BP 120/76; TEMP 97.2; O2SAT 95
[2024-07-24 05:55] LABS: HEMATOCRIT 45.5 % (36.0-47.0); HEMOGLOBIN 14.7 g/dl (12.0-15.5); MEAN CORPUSCULAR HEMOGLOBIN 28.3 pg (27.0-33.0); MEAN CORPUSCULAR HGB CONC 32.3 g/dl (32.0-36.5); MEAN CORPUSCULAR VOLUME 87.7 fl (80.0-96.0); PLATELET COUNT, AUTOMATED 398 10^3/uL (150-450); RED BLOOD COUNT 5.19 10^6/uL (4.00-5.40)
[2024-07-24 06:23] LABS: ALBUMIN 3.1 G/DL (3.2-5.2); ALKALINE PHOSPHATASE 71 U/L (35-104); ALT/SGPT 24 U/L (7.0-40); AST/SGOT 13 U/L (<34); BILIRUBIN,TOTAL 0.3 MG/DL (0.3-1.2); BLOOD UREA NITROGEN 15 MG/DL (9-23); CALCIUM LEVEL 9.9 MG/DL (8.3-10.6); CARBON DIOXIDE LEVEL 29 MMOL/L (20-31); CHLORIDE LEVEL 105 MMOL/L (98-107); CREATININE FOR GFR 0.67 MG/DL (0.55-1.30); GLOMERULAR FILTRATION RATE > 60.0 (>45); GLUCOSE, FASTING 113 MG/DL (74-106); POTASSIUM SERUM 4.7 MMOL/L (3.5-5.1); SODIUM LEVEL 142 MMOL/L (136-145); TOTAL PROTEIN 6.8 G/DL (5.7-8.2)
[2024-07-24 10:45] VITALS: BP 112/75; TEMP 98.1; O2SAT 97
[2024-07-24] MEDS: LanTUS (INSULIN GLARGINE INJ) 1 UNITS/0.01 ML SC SCH (21:05)
[2024-07-25 04:30] VITALS: BP 117/74; TEMP 97.2; O2SAT 98
[2024-07-26 04:00] VITALS: BP 116/71; TEMP 97.5; O2SAT 94
[2024-07-27 04:02] VITALS: BP 143/78; TEMP 97.5
[2024-07-28 05:40] VITALS: BP 144/79; TEMP 97.7; O2SAT 98
[2024-07-29] MEDS: NYSTATIN 100,000 UNITS/GM TOPICAL PWD 15GM TOP SCH (16:57)
[2024-07-30 04:10] VITALS: BP 129/82; TEMP 97.7; O2SAT 96
[2024-07-31 04:00] VITALS: BP 124/75; TEMP 97.9; O2SAT 97
[2024-07-31 10:14] VITALS: BP 124/74; TEMP 97.9; O2SAT 95
[2024-08-01 04:29] VITALS: BP 145/89; TEMP 97.2; O2SAT 95
[2024-08-02 04:19] VITALS: BP 140/78; TEMP 97.5; O2SAT 97
[2024-08-02 10:55] VITALS: BP 142/82; TEMP 97.7; O2SAT 97
[2024-08-02] MEDS: ACETAMINOPHEN 325 MG TAB PO PRN (16:57)
[2024-08-03 06:03] VITALS: BP 145/86; TEMP 97.5; O2SAT 96
[2024-08-04 03:35] VITALS: BP 147/84; TEMP 97.2; O2SAT 96
[2024-08-04 08:00] VITALS: BP 134/82; TEMP 97.7; O2SAT 97
[2024-08-04] MEDS: GABAPENTIN 300 MG CAP PO SCH (08:53)
[2024-08-04 09:32] LABS: BASO % 0.4 % (0.0-1.0); EOS # 0.1 10^3/uL (0.0-0.5); EOS % 1.3 % (0.0-3.0); HEMATOCRIT 45.7 % (36.0-47.0); HEMOGLOBIN 15.5 g/dl (12.0-15.5); LYMPH # 1.3 10^3/uL (1.5-5.0); LYMPH % 18.8 % (24.0-44.0); MEAN CORPUSCULAR HGB CONC 33.9 g/dl (32.0-36.5); MEAN CORPUSCULAR VOLUME 85.4 fl (80.0-96.0); MONO # 0.5 10^3/uL (0.0-0.8); MONO % 7.8 % (2.0-8.0); NEUTROPHILS # 4.8 10^3/uL (1.5-8.5); NEUTROPHILS % 71.4 % (36.0-66.0); PLATELET COUNT, AUTOMATED 402 10^3/uL (150-450); RED BLOOD COUNT 5.35 10^6/uL (4.00-5.40); WHITE BLOOD COUNT 6.8 10^3/uL (4.0-10.0)
[2024-08-04 09:41] LABS: ERYTHROCYTE SEDIMENTATION RATE 29 mm/hr (0-30)
[2024-08-05 04:02] VITALS: BP 144/86; TEMP 97.7; O2SAT 97
[2024-08-07 04:25] VITALS: BP 129/77; TEMP 97.7; O2SAT 96
[2024-08-08] VITALS (8 sets, daily range): BP systolic 130–144; BP diastolic 78–83; TEMP 97.2–97.7; O2SAT 92–99
[2024-08-08] MEDS: HYDROMORPHONE HCL 0.5 MG/ 0.5 ML SYRINGE IV ONE (23:28)
[2024-08-09 04:00] VITALS: BP 109/64; TEMP 97.9; O2SAT 96
[2024-08-09 09:00] VITALS: BP 137/86; TEMP 97.9; O2SAT 99
[2024-08-09 09:30] VITALS: BP 131/73; TEMP 97.7
[2024-08-09 20:22] VITALS: BP 104/63; TEMP 97.7; O2SAT 94
[2024-08-10 04:00] VITALS: BP 127/73; TEMP 97.7; O2SAT 95
[2024-08-10 12:00] VITALS: BP 126/70; TEMP 97.3
[2024-08-11 05:29] VITALS: BP 132/78; TEMP 97.7; O2SAT 94
[2024-08-11 06:01] LABS: HEMATOCRIT 42.5 % (36.0-47.0); HEMOGLOBIN 14.1 g/dl (12.0-15.5); MEAN CORPUSCULAR HEMOGLOBIN 28.2 pg (27.0-33.0); MEAN CORPUSCULAR HGB CONC 33.2 g/dl (32.0-36.5); PLATELET COUNT, AUTOMATED 343 10^3/uL (150-450); WHITE BLOOD COUNT 6.5 10^3/uL (4.0-10.0)
[2024-08-11 06:08] LABS: ERYTHROCYTE SEDIMENTATION RATE 20 mm/hr (0-30)
[2024-08-12 04:00] VITALS: BP 131/79; TEMP 97.7; O2SAT 97
[2024-08-13 04:08] VITALS: BP 126/80; TEMP 97.5; O2SAT 97
[2024-08-13] MEDS: FLUCONAZOLE 50MG TABLET PO ONE (15:30)
[2024-08-14 04:10] VITALS: BP 128/80; TEMP 97.7; O2SAT 96
[2024-08-14 13:20] VITALS: BP 135/83; TEMP 97.3; O2SAT 98
[2024-08-15 04:19] VITALS: BP 136/84; TEMP 97.5; O2SAT 98
[2024-08-15] MEDS: oxyCODONE 5MG TAB PO ONE (17:38)
[2024-08-16 04:00] VITALS: BP 131/75; TEMP 97.6; O2SAT 94
[2024-08-17 04:00] VITALS: BP 130/74; TEMP 97.4; O2SAT 96
[2024-08-18 04:23] VITALS: BP 129/72; TEMP 97.3; O2SAT 96
[2024-08-18 05:46] LABS: HEMATOCRIT 42.5 % (36.0-47.0); HEMOGLOBIN 14.5 g/dl (12.0-15.5); MEAN CORPUSCULAR HEMOGLOBIN 29.4 pg (27.0-33.0); MEAN CORPUSCULAR HGB CONC 34.1 g/dl (32.0-36.5); MEAN CORPUSCULAR VOLUME 86.2 fl (80.0-96.0); PLATELET COUNT, AUTOMATED 330 10^3/uL (150-450); RED BLOOD COUNT 4.93 10^6/uL (4.00-5.40); WHITE BLOOD COUNT 6.5 10^3/uL (4.0-10.0)
[2024-08-18 06:12] LABS: ERYTHROCYTE SEDIMENTATION RATE 18 mm/hr (0-30)
[2024-08-18 10:55] VITALS: BP 144/76; TEMP 97; O2SAT 97
[2024-08-19 04:13] VITALS: BP 140/76; TEMP 97.2; O2SAT 95
[2024-08-20 03:33] VITALS: BP 138/76; TEMP 97.5; O2SAT 98
[2024-08-21 04:37] VITALS: BP 133/76; TEMP 97.3; O2SAT 97
[2024-08-21 08:00] VITALS: BP 144/86; O2SAT 95
[2024-08-21 11:30] VITALS: BP 129/76; TEMP 97.9; O2SAT 95
[2024-08-22 04:58] VITALS: BP 153/85; TEMP 97.5
[2024-08-22 09:00] VITALS: BP 157/80; TEMP 97.9
[2024-08-23 05:12] VITALS: BP 156/80; TEMP 97.5; O2SAT 97
[2024-08-23 11:35] VITALS: BP 130/82; TEMP 97.9; O2SAT 96
[2024-08-24 04:38] VITALS: BP 150/90; TEMP 97.5
[2024-08-25 04:00] VITALS: BP 124/75; TEMP 97.7; O2SAT 96
[2024-08-25 06:02] LABS: HEMOGLOBIN 14.3 g/dl (12.0-15.5); MEAN CORPUSCULAR HGB CONC 33.3 g/dl (32.0-36.5); MEAN CORPUSCULAR VOLUME 87.2 fl (80.0-96.0); PLATELET COUNT, AUTOMATED 339 10^3/uL (150-450); RED BLOOD COUNT 4.93 10^6/uL (4.00-5.40); WHITE BLOOD COUNT 6.4 10^3/uL (4.0-10.0)
[2024-08-25 06:38] LABS: ERYTHROCYTE SEDIMENTATION RATE 19 mm/hr (0-30)
[2024-08-25 08:30] VITALS: BP 131/79; TEMP 97.9; O2SAT 94
[2024-08-25 10:27] VITALS: BP 131/79; TEMP 97.9; O2SAT 94
[2024-08-26 03:44] VITALS: BP 138/81; TEMP 97.5; O2SAT 96
[2024-08-27 04:16] VITALS: BP 128/81; TEMP 97.3; O2SAT 95
[2024-08-28 03:52] VITALS: BP 131/81; TEMP 97.5; O2SAT 95
[2024-08-29 03:52] VITALS: BP 113/58; TEMP 97.3; O2SAT 95
[2024-08-30 04:59] VITALS: BP 112/74; TEMP 97.3; O2SAT 96
[2024-08-30] MEDS: LanTUS (INSULIN GLARGINE INJ) 1 UNITS/0.01 ML SC SCH (10:21)
[2024-08-31 03:25] VITALS: BP 141/82; TEMP 97.7; O2SAT 95
[2024-09-01 05:10] VITALS: BP 140/82; TEMP 97.2; O2SAT 96
[2024-09-01 06:11] LABS: HEMATOCRIT 42.7 % (36.0-47.0); HEMOGLOBIN 14.4 g/dl (12.0-15.5); MEAN CORPUSCULAR HEMOGLOBIN 28.8 pg (27.0-33.0); MEAN CORPUSCULAR HGB CONC 33.7 g/dl (32.0-36.5); MEAN CORPUSCULAR VOLUME 85.4 fl (80.0-96.0); PLATELET COUNT, AUTOMATED 344 10^3/uL (150-450); WHITE BLOOD COUNT 6.2 10^3/uL (4.0-10.0)
[2024-09-01 06:18] LABS: ERYTHROCYTE SEDIMENTATION RATE 16 mm/hr (0-30)
[2024-09-02 04:32] VITALS: BP 118/67; TEMP 97.5; O2SAT 96
[2024-09-03 04:27] VITALS: BP 131/81; TEMP 97.5; O2SAT 96
[2024-09-04 04:00] VITALS: BP 133/80; TEMP 97.5; O2SAT 95
[2024-09-05] VITALS (9 sets, daily range): BP systolic 130–149; BP diastolic 76–98; TEMP 97.2–97.9; O2SAT 92–100
[2024-09-05 07:40] LABS: BASO % 0.5 % (0.0-1.0); EOS # 0.2 10^3/uL (0.0-0.5); EOS % 3.7 % (0.0-3.0); HEMATOCRIT 47.3 % (36.0-47.0); HEMOGLOBIN 15.8 g/dl (12.0-15.5); LYMPH # 2.3 10^3/uL (1.5-5.0); LYMPH % 35.9 % (24.0-44.0); MEAN CORPUSCULAR HEMOGLOBIN 29.3 pg (27.0-33.0); MEAN CORPUSCULAR HGB CONC 33.4 g/dl (32.0-36.5); MEAN CORPUSCULAR VOLUME 87.6 fl (80.0-96.0); MONO # 0.6 10^3/uL (0.0-0.8); MONO % 10.2 % (2.0-8.0); NEUTROPHILS # 3.1 10^3/uL (1.5-8.5); NEUTROPHILS % 49.4 % (36.0-66.0); PLATELET COUNT, AUTOMATED 383 10^3/uL (150-450); WHITE BLOOD COUNT 6.3 10^3/uL (4.0-10.0)
[2024-09-05 08:12] LABS: BLOOD UREA NITROGEN 21 MG/DL (9-23); CARBON DIOXIDE LEVEL 30 MMOL/L (20-31); CHLORIDE LEVEL 107 MMOL/L (98-107); CREATININE FOR GFR 0.56 MG/DL (0.55-1.30); GLOMERULAR FILTRATION RATE > 60.0 (>45); GLUCOSE, FASTING 108 MG/DL (74-106); POTASSIUM SERUM 4.5 MMOL/L (3.5-5.1); SODIUM LEVEL 144 MMOL/L (136-145)
[2024-09-05] MEDS: ceFAZolin SODIUM 2 GM VIAL As Ordered ONE (15:00)
[2024-09-05] MEDS: EPINEPHrine INJ 1 MG/ML 1ML AMP As Ordered ONE (15:13)
[2024-09-05] MEDS ORDERED: oxyCODONE 5MG TAB PO PRN (15:35)
[2024-09-05] MEDS: HYDROMORPHONE HCL 0.5 MG/ 0.5 ML SYRINGE IV PRN (15:53)
[2024-09-05] MEDS: fentaNYL 100 MCG/2 ML INJECTION IV PRN (16:19)
[2024-09-05] MEDS: ONDANSETRON 4MG 2ML VIAL IV PRN (16:19)
[2024-09-05] MEDS: PERCOCET 5MG/325MG TAB PO ONE (16:42)
[2024-09-05] MEDS: KETOROLAC 30 MG/ML 1ML VIAL IV ONE (16:45)
[2024-09-05] MEDS ORDERED: KETOROLAC 30 MG/ML 1ML VIAL As Ordered ONE (16:47)
[2024-09-05] MEDS: ceFAZolin SODIUM 2 GM in DEXTROSE 5% (D5W) ADV/MINI-BAG 50 ML IV ONE (17:35)
[2024-09-05] MEDS: LR 1,000 ML IV SCH (17:36)
[2024-09-06] VITALS (7 sets, daily range): BP systolic 115–152; BP diastolic 68–80; TEMP 96.8–97.9; O2SAT 93–95
[2024-09-07 04:00] VITALS: BP 123/70; TEMP 97.3; O2SAT 94
[2024-09-08 05:18] VITALS: BP 132/76; TEMP 97.5; O2SAT 95
[2024-09-08 06:33] LABS: HEMATOCRIT 41.7 % (36.0-47.0); MEAN CORPUSCULAR HEMOGLOBIN 29.9 pg (27.0-33.0); MEAN CORPUSCULAR HGB CONC 33.6 g/dl (32.0-36.5); MEAN CORPUSCULAR VOLUME 88.9 fl (80.0-96.0); PLATELET COUNT, AUTOMATED 316 10^3/uL (150-450); RED BLOOD COUNT 4.69 10^6/uL (4.00-5.40); WHITE BLOOD COUNT 7.2 10^3/uL (4.0-10.0)
[2024-09-08 06:38] LABS: ERYTHROCYTE SEDIMENTATION RATE 40 mm/hr (0-30)
[2024-09-09 04:42] VITALS: BP 130/80; TEMP 97.7; O2SAT 99
[2024-09-10 04:27] VITALS: BP 120/76; TEMP 97.5; O2SAT 96
[2024-09-11 05:37] VITALS: BP 152/79; TEMP 97.5; O2SAT 97
[2024-09-12 04:19] VITALS: BP 138/80; TEMP 97.7; O2SAT 97
[2024-09-12] MEDS: PERCOCET 5MG/325MG TAB PO ONE (13:01)
[2024-09-13 04:56] VITALS: BP 135/82; TEMP 97.5; O2SAT 96
[2024-09-13 10:00] VITALS: BP 133/82; TEMP 96.8; O2SAT 96
[2024-09-13 20:00] VITALS: BP 127/74; TEMP 97.5; O2SAT 97
[2024-09-14 04:00] VITALS: BP 129/75; TEMP 97.3; O2SAT 96
[2024-09-15 04:00] VITALS: BP 127/74; TEMP 97.3; O2SAT 94
[2024-09-15 06:01] LABS: HEMATOCRIT 42.5 % (36.0-47.0); HEMOGLOBIN 14.3 g/dl (12.0-15.5); MEAN CORPUSCULAR HEMOGLOBIN 29.4 pg (27.0-33.0); MEAN CORPUSCULAR HGB CONC 33.6 g/dl (32.0-36.5); MEAN CORPUSCULAR VOLUME 87.4 fl (80.0-96.0); PLATELET COUNT, AUTOMATED 386 10^3/uL (150-450); RED BLOOD COUNT 4.86 10^6/uL (4.00-5.40); WHITE BLOOD COUNT 6.6 10^3/uL (4.0-10.0)
[2024-09-15 06:06] LABS: ERYTHROCYTE SEDIMENTATION RATE 31 mm/hr (0-30)
[2024-09-15 07:25] VITALS: BP 130/78; TEMP 97.5; O2SAT 96
[2024-09-15] MEDS ORDERED: INSU100I16 SQ (11:27)
[2024-09-15] MEDS ORDERED: BASA100I SC (11:27)
[2024-09-15] MEDS ORDERED: PERCOCET PO (11:27)
[2024-09-15] MEDS ORDERED: GABA-1172 PO (11:27)
[2024-09-15] MEDS ORDERED: SENO8.6T5 PO (11:27)
== END 2024-09-15 15:35 | disposition home health service (06) | DRG 857 ==
LOC: M ED 17:18 → M ED INP 22:27 → M MS5PR 07-06 14:00
PROVIDERS: ADMIT Student in an Organized Health Care Education/Training Program; ATTEND Internal Medicine
PROC: 0QPH04Z Removal of Internal Fixation Device from Left Tibia, Open Approach (ICD-10-PCS; 2024-07-06)
PROC: 0QBH0ZZ Excision of Left Tibia, Open Approach (ICD-10-PCS; 2024-07-13)
PROC: 0HR Skin and Breast, Replacement (ICD-10-PCS; principal; 2024-07-13 11:00)
PROC: 0QDH0ZZ Extraction of Left Tibia, Open Approach (ICD-10-PCS; 2024-08-08)
PROC: 0HR Skin and Breast, Replacement (ICD-10-PCS; 2024-08-08)
PROC: 0HRLX74 Replacement of Left Lower Leg Skin with Autologous Tissue Substitute, Partial Thickness, External Approach (ICD-10-PCS; 2024-09-05)
PROC: 0HBHXZZ Excision of Right Upper Leg Skin, External Approach (ICD-10-PCS; 2024-09-05)
DX: T81.40XA Infection following a procedure, unspecified, initial encounter (principal); T84.89XA Other specified complication of internal orthopedic prosthetic devices, implants and grafts, initial encounter; L03.116 Cellulitis of left lower limb; M86.9 Osteomyelitis, unspecified; S82.202D Unspecified fracture of shaft of left tibia, subsequent encounter for closed fracture with routine healing; E11.628 Type 2 diabetes mellitus with other skin complications; K21.9 Gastro-esophageal reflux disease without esophagitis; F32.A Depression, unspecified; E11.69 Type 2 diabetes mellitus with other specified complication; Z94.5 Skin transplant status; Z86.711 Personal history of pulmonary embolism; Z79.4 Long term (current) use of insulin; Z79.01 Long term (current) use of anticoagulants; Z79.899 Other long term (current) drug therapy; E07.9 Disorder of thyroid, unspecified

== ENCOUNTER → 2024-07-05 | Outpatient (CLI) | payer MEDICARE, MEDICAID | LOC: M SOG 16:06 | PROVIDERS: ATTEND Orthopaedic Surgery Hand Surgery | DX: S82.202D Unspecified fracture of shaft of left tibia, subsequent encounter for closed fracture with routine healing (principal); X58.XXXD Exposure to other specified factors, subsequent encounter; Y92.9 Unspecified place or not applicable; Y93.9 Activity, unspecified; Y99.9 Unspecified external cause status ==

== ENCOUNTER 2024-11-24 14:54 | Inpatient (IN) | payer MEDICARE, MEDICAID ==
[~2024-11-24] VITALS: Ht 162.6 cm; Wt 60.9 kg
[~2024-11-24 14:54] MED LIST changes: -FLOM0.4C39 PO; +GABA-1172 PO; +INSU100I16 SQ; +SENN-225 PO; -SENO8.6T5 PO; +TAMS-18 PO; -VANCOMYCIN HCL 750 MG, VIAL MATE ADAPTER 1 EACH in NS 250 ML IV SCH
[2024-11-24] MEDS ORDERED: ATOR40TA75 PO (15:06)
[2024-11-24 18:16] LABS: BASO # 0.0 10^3/uL (0.0-0.2); BASO % 0.1 % (0.0-1.0); EOS # 0.0 10^3/uL (0.0-0.5); EOS % 0.0 % (0.0-3.0); LYMPH # 0.7 10^3/uL (1.5-5.0); LYMPH % 6.6 % (24.0-44.0); MONO # 0.9 10^3/uL (0.0-0.8); MONO % 8.6 % (2.0-8.0); NEUTROPHILS # 9.1 10^3/uL (1.5-8.5); NEUTROPHILS % 84.3 % (36.0-66.0); PLATELET COUNT, AUTOMATED 280 10^3/uL (150-450)
[2024-11-24 18:41] LABS: CK-MB VALUE MASS < 1.0 NG/ML (<3.6)
[2024-11-24] MEDS: MORPHINE 2 MG/ML 1 ML VIAL IV PRN (18:41)
[2024-11-24] MEDS: PIPERACILLIN/TAZOBACTAM SOD 3.375 GM in DEXTROSE 5% (D5W) ADV/MINI-BAG 50 ML IV ONE (18:41)
[2024-11-24] MEDS: ONDANSETRON 4MG 2ML VIAL IV ONE (18:41)
[2024-11-24] MEDS: NS (Normal Saline) 0.9% 1,000 ML IV ONE (18:42)
[2024-11-24 18:44] LABS: ALT/SGPT 14 U/L (7.0-40); AST/SGOT 14 U/L (<34); CALCIUM LEVEL 9.0 MG/DL (8.3-10.6); CARBON DIOXIDE LEVEL 20 MMOL/L (20-31); CHLORIDE LEVEL 108 MMOL/L (98-107); CREATININE FOR GFR 0.59 MG/DL (0.55-1.30); GLOMERULAR FILTRATION RATE > 90.0 (>45); POTASSIUM SERUM 3.6 MMOL/L (3.5-5.1); SODIUM LEVEL 142 MMOL/L (136-145)
[2024-11-24 18:54] LABS: INR 1.36
[2024-11-24 18:55] LABS: C REACTIVE PROTEIN QUANTITATIV 24.17 MG/DL (<1.0); CPK CREATINE PHOSPHOKINASE 34 U/L (34-145)
[2024-11-24] MEDS ORDERED: ISOVUE-370 76% 100 ML VIAL As Ordered ONE (21:01)
[2024-11-24] MEDS: HYDROMORPHONE HCL 0.5 MG/0.5 ML SYRINGE IV PRN (21:07)
[2024-11-24] MEDS: ACETAMINOPHEN *IV* 1,000 MG in IV 1 EA IV ONE (21:08)
[2024-11-24] MEDS ORDERED: NOVOINJ3 SC (23:29)
[2024-11-24] MEDS ORDERED: HOME MED LIST COMPLETE! XX SCH (23:30)
[2024-11-25] VITALS (11 sets, daily range): BP systolic 110–131; BP diastolic 56–88; TEMP 97.4–98.4; O2SAT 93–99
[2024-11-25] MEDS: ACETAMINOPHEN 325 MG TAB PO PRN (02:01)
[2024-11-25] MEDS ORDERED: GLUCAGON INJ 1 MG VIAL SC PRN (06:30)
[2024-11-25] MEDS ORDERED: GLUCOSE 4 GM CHEW PO PRN (06:30)
[2024-11-25] MEDS ORDERED: DEXTROSE 50% 50 ML SYRINGE IV PRN (06:30)
[2024-11-25 06:33] LABS: PLATELET COUNT, AUTOMATED 245 10^3/uL (150-450)
[2024-11-25 06:38] LABS: INR 1.19
[2024-11-25 07:13] LABS: ALT/SGPT 12 U/L (7.0-40); AST/SGOT 10 U/L (<34); CALCIUM LEVEL 8.7 MG/DL (8.3-10.6); CARBON DIOXIDE LEVEL 22 MMOL/L (20-31); CHLORIDE LEVEL 110 MMOL/L (98-107); CREATININE FOR GFR 0.69 MG/DL (0.55-1.30); GLOMERULAR FILTRATION RATE > 90.0 (>45); MAGNESIUM LEVEL 1.7 MG/DL (1.8-2.4); POTASSIUM SERUM 3.6 MMOL/L (3.5-5.1); SODIUM LEVEL 142 MMOL/L (136-145)
[2024-11-25] MEDS: INSULIN LISPRO (NovoLOG) PER UNIT SC SCH ×2 (07:30→20:16)
[2024-11-25] MEDS: KETOROLAC 30 MG/ML 1 ML VIAL IV PRN (08:38)
[2024-11-25 08:42] LABS: APPEARANCE, URINE CLEAR (CLEAR); BACTERIA, URINE AUTO 1+ (NEGATIVE); BILIRUBIN, URINE AUTO NEGATIVE (NEGATIVE); BLOOD, URINE BLOOD NEGATIVE (NEGATIVE); GLUCOSE, URINE (UA) AUTO 1+ mg/dL (NEGATIVE); KETONE, URINE AUTO 1+ mg/dL (NEGATIVE); LEUKOCYTE ESTERASE, URINE AUTO NEGATIVE (NEGATIVE); MUCUS, URINE SMALL (NEGATIVE); NITRITE, URINE AUTO NEGATIVE (NEGATIVE); PROTEIN, URINE AUTO 2+ mg/dL (NEGATIVE); RBC, URINE AUTO 5 /HPF (0-3); SQUAMOUS EPITHELIAL CELL UR AU 0 /HPF (0-6); UROBILINOGEN, URINE AUTO 0.2 mg/dL (0.0-2.0); WBC, URINE AUTO 5 /HPF (0-3)
[2024-11-25 08:45] LABS: SPECIFIC GRAVITY URINE AUTO >1.060 (1.002-1.035)
[2024-11-25] MEDS: VANCOMYCIN HCL 1,000 MG, VIAL MATE ADAPTER 1 EACH in NS 250 ML IV SCH (08:45)
[2024-11-25] MEDS: PANTOPRAZOLE 40MG VIAL IV SCH (08:45)
[2024-11-25] MEDS: DOCUSATE SODIUM 100 MG CAPSULE PO SCH (09:00)
[2024-11-25] MEDS: MAG SULF 1GM/100ML (MAG RUN) 1 GM in IV 1 EA IV ONE (10:30)
[2024-11-25] MEDS ORDERED: ONDANSETRON 4MG 2ML VIAL As Ordered ONE (13:13)
[2024-11-25] MEDS ORDERED: LIDOCAINE 2% 100 MG/5 ML SDV (FOR ANES.) As Ordered ONE (13:13)
[2024-11-25] MEDS ORDERED: dexAMETHasone 4 MG/ML 1 ML VIAL As Ordered ONE (13:13)
[2024-11-25] MEDS ORDERED: MIDAZOLAM INJ 2 MG/2 ML VIAL As Ordered ONE (13:13)
[2024-11-25] MEDS ORDERED: GLYCOPYRROLATE INJ 0.2 MG/ML 2 ML VIAL As Ordered ONE (13:32)
[2024-11-25] MEDS: VANCOMYCIN 1000MG/20ML VIAL As Ordered ONE (14:07)
[2024-11-25] MEDS: LR 1,000 ML IV SCH (14:35)
[2024-11-25] MEDS ORDERED: MEPERIDINE 25 MG/ML 1 ML VIAL IV PRN (14:35)
[2024-11-25] MEDS ORDERED: diphenhydrAMINE 50 MG/ML VIAL IV PRN (14:35)
[2024-11-25] MEDS: ALBUTEROL SULFATE 2.5 MG/0.5 ML INH CONCENTRATE NEB SOLN INH ONE (14:35)
[2024-11-25] MEDS: HYDROMORPHONE HCL 0.5 MG/0.5 ML SYRINGE IV PRN (15:24)
[2024-11-25] MEDS: ONDANSETRON 4MG 2ML VIAL IV PRN (15:27)
[2024-11-25] MEDS: VANCOMYCIN HCL 750 MG, VIAL MATE ADAPTER 1 EACH in NS 250 ML IV SCH (16:56)
[2024-11-26] VITALS: BP 106/55; TEMP 98.2; O2SAT 98
[2024-11-26 04:00] VITALS: BP 112/59; TEMP 98.2; O2SAT 97
[2024-11-26 07:54] LABS: BASO # 0.0 10^3/uL (0.0-0.2); BASO % 0.1 % (0.0-1.0); EOS # 0.0 10^3/uL (0.0-0.5); EOS % 0.0 % (0.0-3.0); LYMPH # 1.0 10^3/uL (1.5-5.0); LYMPH % 8.8 % (24.0-44.0); MONO # 1.1 10^3/uL (0.0-0.8); MONO % 9.3 % (2.0-8.0); NEUTROPHILS # 9.4 10^3/uL (1.5-8.5); NEUTROPHILS % 81.5 % (36.0-66.0); PLATELET COUNT, AUTOMATED 290 10^3/uL (150-450)
[2024-11-26 08:09] VITALS: BP 111/60; TEMP 97.4; O2SAT 96
[2024-11-26] MEDS: MORPHINE 4 MG/ML 1 ML VIAL IV PRN (08:11)
[2024-11-26 08:18] LABS: VANCOMYCIN LEVEL TROUGH 10.6 UG/ML (10.0-20.0)
[2024-11-26 08:24] LABS: CALCIUM LEVEL 8.2 MG/DL (8.3-10.6); CARBON DIOXIDE LEVEL 22 MMOL/L (20-31); CHLORIDE LEVEL 107 MMOL/L (98-107); CREATININE FOR GFR 0.64 MG/DL (0.55-1.30); GLOMERULAR FILTRATION RATE > 90.0 (>45); POTASSIUM SERUM 4.6 MMOL/L (3.5-5.1); SODIUM LEVEL 141 MMOL/L (136-145)
[2024-11-26] MEDS: cefTRIAXone SOD 2 GM in DEXTROSE 5% (D5W) ADV/MINI-BAG 50 ML IV SCH (10:10)
[2024-11-26 15:39] VITALS: BP 101/55; TEMP 97.5; O2SAT 94
[2024-11-26 20:00] VITALS: BP 110/63; TEMP 97.8; O2SAT 97
[2024-11-27 04:00] VITALS: BP 114/62; TEMP 98.2; O2SAT 96
[2024-11-27 06:59] LABS: BASO # 0.0 10^3/uL (0.0-0.2); BASO % 0.1 % (0.0-1.0); EOS # 0.1 10^3/uL (0.0-0.5); EOS % 0.9 % (0.0-3.0); LYMPH # 1.5 10^3/uL (1.5-5.0); LYMPH % 18.3 % (24.0-44.0); MONO # 0.4 10^3/uL (0.0-0.8); MONO % 5.2 % (2.0-8.0); NEUTROPHILS # 6.1 10^3/uL (1.5-8.5); NEUTROPHILS % 74.9 % (36.0-66.0); PLATELET COUNT, AUTOMATED 325 10^3/uL (150-450)
[2024-11-27 07:06] LABS: CALCIUM LEVEL 8.0 MG/DL (8.3-10.6); CARBON DIOXIDE LEVEL 25 MMOL/L (20-31); CHLORIDE LEVEL 106 MMOL/L (98-107); CREATININE FOR GFR 0.57 MG/DL (0.55-1.30); GLOMERULAR FILTRATION RATE > 90.0 (>45); POTASSIUM SERUM 4.3 MMOL/L (3.5-5.1); SODIUM LEVEL 141 MMOL/L (136-145)
[2024-11-27 07:34] VITALS: BP 116/56; TEMP 97.6; O2SAT 94
[2024-11-27] MEDS: MOM 30 ML SUSPENSION UDC PO PRN (09:10)
[2024-11-27 11:48] VITALS: BP 137/72; TEMP 97.8; O2SAT 95
[2024-11-27] MEDS ORDERED: PILL CUTTER 1 EACH XX PRN (12:10)
[2024-11-27 16:00] VITALS: BP 135/66; TEMP 98.1; O2SAT 95
[2024-11-27 17:22] LABS: CPK CREATINE PHOSPHOKINASE < 15 U/L (34-145)
[2024-11-27 20:08] VITALS: BP 120/66; TEMP 97.3; O2SAT 93
[2024-11-27] MEDS: SENNA 8.6 MG TAB PO SCH (20:47)
[2024-11-28 05:07] VITALS: BP 112/70; TEMP 97.1
[2024-11-28 06:43] LABS: BASO # 0.0 10^3/uL (0.0-0.2); BASO % 0.4 % (0.0-1.0); EOS # 0.1 10^3/uL (0.0-0.5); EOS % 1.6 % (0.0-3.0); LYMPH # 1.7 10^3/uL (1.5-5.0); LYMPH % 21.1 % (24.0-44.0); MONO # 0.5 10^3/uL (0.0-0.8); MONO % 6.8 % (2.0-8.0); NEUTROPHILS # 5.5 10^3/uL (1.5-8.5); NEUTROPHILS % 69.1 % (36.0-66.0); PLATELET COUNT, AUTOMATED 366 10^3/uL (150-450)
[2024-11-28 07:07] LABS: CALCIUM LEVEL 8.2 MG/DL (8.3-10.6); CARBON DIOXIDE LEVEL 29 MMOL/L (20-31); CHLORIDE LEVEL 101 MMOL/L (98-107); CREATININE FOR GFR 0.54 MG/DL (0.55-1.30); GLOMERULAR FILTRATION RATE > 90.0 (>45); POTASSIUM SERUM 4.6 MMOL/L (3.5-5.1); SODIUM LEVEL 140 MMOL/L (136-145)
[2024-11-28] MEDS: PANTOPRAZOLE 40MG TAB PO SCH (08:13)
[2024-11-28] MEDS: BISACODYL 10 MG SUPP PR PRN (09:44)
[2024-11-28] MEDS: BISACODYL 10 MG SUPP PR ONE (09:50)
[2024-11-28 12:00] VITALS: BP 133/72; TEMP 97; O2SAT 96
[2024-11-28 20:02] VITALS: BP 115/68; TEMP 98.1; O2SAT 97
[2024-11-29] VITALS: BP 113/64; TEMP 98.4; O2SAT 94
[2024-11-29 04:00] VITALS: BP 111/61; TEMP 97; O2SAT 96
[2024-11-29 07:15] LABS: BASO # 0.0 10^3/uL (0.0-0.2); BASO % 0.4 % (0.0-1.0); EOS # 0.2 10^3/uL (0.0-0.5); EOS % 2.1 % (0.0-3.0); LYMPH # 1.7 10^3/uL (1.5-5.0); LYMPH % 20.8 % (24.0-44.0); MONO # 0.6 10^3/uL (0.0-0.8); MONO % 6.8 % (2.0-8.0); NEUTROPHILS # 5.6 10^3/uL (1.5-8.5); NEUTROPHILS % 68.8 % (36.0-66.0); PLATELET COUNT, AUTOMATED 434 10^3/uL (150-450)
[2024-11-29 07:57] LABS: CALCIUM LEVEL 8.5 MG/DL (8.3-10.6); CARBON DIOXIDE LEVEL 26 MMOL/L (20-31); CHLORIDE LEVEL 102 MMOL/L (98-107); CREATININE FOR GFR 0.56 MG/DL (0.55-1.30); GLOMERULAR FILTRATION RATE > 90.0 (>45); POTASSIUM SERUM 4.6 MMOL/L (3.5-5.1); SODIUM LEVEL 138 MMOL/L (136-145)
[2024-11-29 12:00] VITALS: BP 107/63; TEMP 97.1; O2SAT 98
[2024-11-29 16:00] VITALS: BP 119/61; TEMP 98; O2SAT 98
[2024-11-29 20:10] VITALS: BP 138/71; TEMP 98.1; O2SAT 98
[2024-11-30 03:39] VITALS: BP 104/58; TEMP 97.8; O2SAT 96
[2024-11-30 07:52] VITALS: BP 97/54; TEMP 97.1; O2SAT 97
[2024-11-30 08:13] LABS: BASO # 0.0 10^3/uL (0.0-0.2); BASO % 0.4 % (0.0-1.0); EOS # 0.1 10^3/uL (0.0-0.5); EOS % 1.3 % (0.0-3.0); LYMPH # 1.6 10^3/uL (1.5-5.0); LYMPH % 17.9 % (24.0-44.0); MONO # 0.6 10^3/uL (0.0-0.8); MONO % 6.7 % (2.0-8.0); NEUTROPHILS # 6.5 10^3/uL (1.5-8.5); NEUTROPHILS % 72.8 % (36.0-66.0); PLATELET COUNT, AUTOMATED 481 10^3/uL (150-450)
[2024-11-30 08:39] LABS: CALCIUM LEVEL 8.9 MG/DL (8.3-10.6); CARBON DIOXIDE LEVEL 26 MMOL/L (20-31); CHLORIDE LEVEL 103 MMOL/L (98-107); CREATININE FOR GFR 0.58 MG/DL (0.55-1.30); GLOMERULAR FILTRATION RATE > 90.0 (>45); POTASSIUM SERUM 4.8 MMOL/L (3.5-5.1); SODIUM LEVEL 142 MMOL/L (136-145)
[2024-11-30] MEDS ORDERED: SODIUM CHLORIDE 0.9% INJ 10 ML SYR IV PRN (10:55)
[2024-11-30 12:00] VITALS: BP 112/59; TEMP 96.8; O2SAT 97
[2024-11-30 16:00] VITALS: BP 145/73; TEMP 95.7; O2SAT 99
[2024-11-30 16:55] VITALS: BP 135/76; TEMP 97.5; O2SAT 99
[2024-11-30] MEDS: SODIUM CHLORIDE 0.9% INJ 10 ML SYR IV SCH (17:51)
[2024-11-30 19:09] LABS: C REACTIVE PROTEIN QUANTITATIV 6.73 MG/DL (<1.0)
[2024-12-01 04:22] VITALS: BP 115/68; TEMP 96.6; O2SAT 95
[2024-12-01 11:30] VITALS: BP 115/59; TEMP 97.2; O2SAT 99
[2024-12-02 04:00] VITALS: BP 117/68; TEMP 97.2; O2SAT 95
[2024-12-02 20:55] VITALS: BP 117/68; TEMP 97; O2SAT 94
[2024-12-03 05:15] VITALS: BP 116/72; TEMP 97; O2SAT 95
[2024-12-03 11:57] VITALS: BP 105/66; TEMP 97.7; O2SAT 98
[2024-12-04 04:00] VITALS: BP 113/56; TEMP 97; O2SAT 96
[2024-12-04 07:16] LABS: PLATELET COUNT, AUTOMATED 512 10^3/uL (150-450)
[2024-12-04 07:49] LABS: CALCIUM LEVEL 9.1 MG/DL (8.3-10.6); CARBON DIOXIDE LEVEL 25 MMOL/L (20-31); CHLORIDE LEVEL 103 MMOL/L (98-107); CPK CREATINE PHOSPHOKINASE 24 U/L (34-145); CREATININE FOR GFR 0.58 MG/DL (0.55-1.30); GLOMERULAR FILTRATION RATE > 90.0 (>45); POTASSIUM SERUM 4.8 MMOL/L (3.5-5.1); SODIUM LEVEL 141 MMOL/L (136-145)
[2024-12-04 17:34] LABS: CALCIUM LEVEL 8.6 MG/DL (8.3-10.6); CARBON DIOXIDE LEVEL 26 MMOL/L (20-31); CHLORIDE LEVEL 104 MMOL/L (98-107); CREATININE FOR GFR 0.57 MG/DL (0.55-1.30); GLOMERULAR FILTRATION RATE > 90.0 (>45); POTASSIUM SERUM 4.4 MMOL/L (3.5-5.1); SODIUM LEVEL 139 MMOL/L (136-145)
[2024-12-05 04:00] VITALS: BP 144/79; TEMP 97; O2SAT 97
[2024-12-06 04:00] VITALS: BP 120/74; TEMP 97.2; O2SAT 97
[2024-12-07] VITALS (8 sets, daily range): BP systolic 114–128; BP diastolic 68–76; TEMP 97.3–98.1; O2SAT 92–97
[2024-12-07] MEDS: GENTAMICIN SULF 80 MG/2 ML VIAL As Ordered ONE (13:04)
[2024-12-07] MEDS ORDERED: ACETAMINOPHEN 1000MG/100ML IV BAG As Ordered ONE (13:08)
[2024-12-07] MEDS ORDERED: ONDANSETRON 4MG 2ML VIAL IV PRN (13:45)
[2024-12-07 17:14] LABS: PLATELET COUNT, AUTOMATED 518 10^3/uL (150-450)
[2024-12-07 17:33] LABS: CALCIUM LEVEL 8.8 MG/DL (8.3-10.6); CARBON DIOXIDE LEVEL 23 MMOL/L (20-31); CHLORIDE LEVEL 107 MMOL/L (98-107); CREATININE FOR GFR 0.59 MG/DL (0.55-1.30); GLOMERULAR FILTRATION RATE > 90.0 (>45); POTASSIUM SERUM 4.2 MMOL/L (3.5-5.1); SODIUM LEVEL 144 MMOL/L (136-145)
[2024-12-08 00:03] VITALS: BP 116/70; TEMP 97.2; O2SAT 97
[2024-12-08 03:55] VITALS: BP 113/68; TEMP 97.3; O2SAT 94
[2024-12-09 04:00] VITALS: BP 130/73; TEMP 97.2; O2SAT 97
[2024-12-09 09:00] VITALS: BP 120/68; TEMP 97.6
[2024-12-10 04:00] VITALS: BP 133/74; TEMP 97.5; O2SAT 96
[2024-12-10 17:08] VITALS: BP 130/74; TEMP 97.2; O2SAT 98
[2024-12-11 15:43] LABS: C REACTIVE PROTEIN QUANTITATIV 0.52 MG/DL (<1.0)
[2024-12-11 15:46] LABS: CPK CREATINE PHOSPHOKINASE 35.0 U/L (34-145)
[2024-12-11 17:14] LABS: PLATELET COUNT, AUTOMATED 479 10^3/uL (150-450)
[2024-12-11 17:42] LABS: CALCIUM LEVEL 8.7 MG/DL (8.3-10.6); CARBON DIOXIDE LEVEL 23 MMOL/L (20-31); CHLORIDE LEVEL 107 MMOL/L (98-107); CREATININE FOR GFR 0.56 MG/DL (0.55-1.30); GLOMERULAR FILTRATION RATE > 90.0 (>45); POTASSIUM SERUM 4.3 MMOL/L (3.5-5.1); SODIUM LEVEL 141 MMOL/L (136-145)
[2024-12-11 23:02] VITALS: BP 139/79; TEMP 97.3; O2SAT 96
[2024-12-13 04:00] VITALS: BP 122/80; TEMP 97.2; O2SAT 97
[2024-12-14 05:02] VITALS: BP 117/76; TEMP 97.3; O2SAT 93
[2024-12-14 18:03] LABS: PLATELET COUNT, AUTOMATED 427 10^3/uL (150-450)
[2024-12-14 18:31] LABS: CALCIUM LEVEL 9.0 MG/DL (8.3-10.6); CARBON DIOXIDE LEVEL 25 MMOL/L (20-31); CHLORIDE LEVEL 105 MMOL/L (98-107); CREATININE FOR GFR 0.55 MG/DL (0.55-1.30); GLOMERULAR FILTRATION RATE > 90.0 (>45); POTASSIUM SERUM 4.3 MMOL/L (3.5-5.1); SODIUM LEVEL 141 MMOL/L (136-145)
[2024-12-15 04:30] VITALS: BP 118/76; TEMP 97.3; O2SAT 95
[2024-12-15 20:39] VITALS: BP 130/74; TEMP 97.3; O2SAT 97
[2024-12-15] MEDS: HEPARIN SOD 5000 UNITS/ML 1 ML VIAL/SYRINGE SC SCH (20:42)
[2024-12-15 21:00] VITALS: TEMP 97.3
[2024-12-16 04:11] VITALS: BP 139/86; TEMP 97.3; O2SAT 96
[2024-12-16 21:00] VITALS: BP 124/76; TEMP 97.3; O2SAT 95
[2024-12-17 05:44] VITALS: BP 115/72; TEMP 97.3; O2SAT 96
[2024-12-18 04:00] VITALS: BP 143/80; TEMP 97.2; O2SAT 97
[2024-12-18 17:27] LABS: PLATELET COUNT, AUTOMATED 415 10^3/uL (150-450)
[2024-12-18 18:02] LABS: CALCIUM LEVEL 9.4 MG/DL (8.3-10.6); CARBON DIOXIDE LEVEL 26 MMOL/L (20-31); CHLORIDE LEVEL 105 MMOL/L (98-107); CREATININE FOR GFR 0.65 MG/DL (0.55-1.30); GLOMERULAR FILTRATION RATE > 90.0 (>45); POTASSIUM SERUM 4.4 MMOL/L (3.5-5.1); SODIUM LEVEL 141 MMOL/L (136-145)
[2024-12-19] VITALS (8 sets, daily range): BP systolic 116–150; BP diastolic 65–83; TEMP 97–97.3; O2SAT 93–97
[2024-12-19] MEDS ORDERED: NITROGLYCERIN 2% OINT 1 GM *U/D* PKT As Ordered ONE (13:48)
[2024-12-19] MEDS: ONDANSETRON 4MG 2ML VIAL IV PRN ×2 (14:35→17:47)
[2024-12-19] MEDS: HYDROMORPHONE HCL 0.5 MG/0.5 ML SYRINGE IV PRN (14:54)
[2024-12-20] VITALS (7 sets, daily range): BP systolic 116–136; BP diastolic 66–81; TEMP 97.2–97.6; O2SAT 92–97
[2024-12-20] MEDS: MAALOX 30 ML SUSP *UDC PO PRN (12:12)
[2024-12-21 06:01] VITALS: BP 139/77; TEMP 97.3; O2SAT 96
[2024-12-21] MEDS: ASPIRIN 81 MG ENTERIC TABLET PO SCH (11:43)
[2024-12-21] MEDS: NITROGLYCERIN 2% OINT 1 GM *U/D* PKT TOP ONE ×2 (14:13→16:46)
[2024-12-21 16:46] VITALS: BP 139/77
[2024-12-21 17:23] LABS: PLATELET COUNT, AUTOMATED 387 10^3/uL (150-450)
[2024-12-21 17:50] LABS: C REACTIVE PROTEIN QUANTITATIV < 0.50 MG/DL (<1.0); CALCIUM LEVEL 9.2 MG/DL (8.3-10.6); CARBON DIOXIDE LEVEL 28 MMOL/L (20-31); CHLORIDE LEVEL 102 MMOL/L (98-107); CPK CREATINE PHOSPHOKINASE 30 U/L (34-145); CREATININE FOR GFR 0.56 MG/DL (0.55-1.30); GLOMERULAR FILTRATION RATE > 90.0 (>45); POTASSIUM SERUM 4.3 MMOL/L (3.5-5.1); SODIUM LEVEL 140 MMOL/L (136-145)
[2024-12-22 04:00] VITALS: BP 145/85; TEMP 97.8
[2024-12-22] MEDS ORDERED: NITROGLYCERIN 2% OINT 1 GM *U/D* PKT TOP PRN (07:05)
[2024-12-23 06:03] VITALS: BP 120/72; TEMP 97.3; O2SAT 98
[2024-12-23] MEDS: CLOTRIMAZOLE 1% TOPICAL CREAM 30 GM TOP SCH (22:53)
[2024-12-24 04:01] VITALS: BP 121/72; TEMP 97.3; O2SAT 97
[2024-12-25 03:52] VITALS: BP 121/72; TEMP 97.3; O2SAT 97
[2024-12-25 11:08] LABS: PLATELET COUNT, AUTOMATED 351 10^3/uL (150-450)
[2024-12-25 17:34] LABS: PLATELET COUNT, AUTOMATED 379 10^3/uL (150-450)
[2024-12-25 17:47] LABS: CALCIUM LEVEL 9.2 MG/DL (8.3-10.6); CARBON DIOXIDE LEVEL 27 MMOL/L (20-31); CHLORIDE LEVEL 102 MMOL/L (98-107); CREATININE FOR GFR 0.60 MG/DL (0.55-1.30); GLOMERULAR FILTRATION RATE > 90.0 (>45); POTASSIUM SERUM 4.1 MMOL/L (3.5-5.1); SODIUM LEVEL 141 MMOL/L (136-145)
[2024-12-25] MEDS: CEPHALEXIN 500 MG CAP PO SCH (17:47)
[2024-12-26 03:50] VITALS: BP 135/87; TEMP 97.3; O2SAT 99
[2024-12-27 06:05] VITALS: BP 129/84; TEMP 97.3; O2SAT 96
[2024-12-27 20:52] VITALS: BP 126/80; TEMP 97; O2SAT 97
[2024-12-28 06:21] VITALS: BP 142/82; TEMP 97.2; O2SAT 94
[2024-12-28 13:37] LABS: ESTIMATED AVERAGE GLUCOSE 123.0 MG/DL (60-110)
[2024-12-28] MEDS: APIXABAN 2.5 MG TAB PO SCH (21:06)
[2024-12-29 04:00] VITALS: BP 144/82; TEMP 97.2; O2SAT 96
[2024-12-29] MEDS ORDERED: BASA100I SC (12:48)
[2024-12-29] MEDS ORDERED: PROB250C PO (12:48)
[2024-12-29] MEDS ORDERED: CEPH500C PO (12:48)
[2024-12-29] MEDS ORDERED: COLA100C5 PO (12:51)
[2024-12-29] MEDS ORDERED: OXYC1TAB23 PO (12:51)
[2024-12-29] MEDS ORDERED: ELIQ2.5T PO (12:51)
== END 2024-12-29 16:05 | disposition home or self-care (01) | DRG 904 ==
LOC: M ED 14:54 → M ED INP 23:30 → M MS4PR 11-25 01:30 → M MS5PR 11-30 16:50
PROVIDERS: ADMIT Student in an Organized Health Care Education/Training Program; ATTEND Internal Medicine
PROC: 0QPK04Z Removal of Internal Fixation Device from Left Fibula, Open Approach (ICD-10-PCS; 2024-11-25)
PROC: 0QPH04Z Removal of Internal Fixation Device from Left Tibia, Open Approach (ICD-10-PCS; 2024-11-25)
PROC: 3E0V329 Introduction of Other Anti-infective into Bones, Percutaneous Approach (ICD-10-PCS; 2024-11-25)
PROC: 0HR Skin and Breast, Replacement (ICD-10-PCS; principal; 2024-12-07 13:00)
PROC: 0HXKXZZ Transfer Right Lower Leg Skin, External Approach (ICD-10-PCS; 2024-12-19)
DX: T81.30XA Disruption of wound, unspecified, initial encounter (principal); S82.202K Unspecified fracture of shaft of left tibia, subsequent encounter for closed fracture with nonunion; M86.162 Other acute osteomyelitis, left tibia and fibula; L97.329 Non-pressure chronic ulcer of left ankle with unspecified severity; T84.7XXD Infection and inflammatory reaction due to other internal orthopedic prosthetic devices, implants and grafts, subsequent encounter; E11.69 Type 2 diabetes mellitus with other specified complication; F32.A Depression, unspecified; Z94.5 Skin transplant status; R11.2 Nausea with vomiting, unspecified; K21.9 Gastro-esophageal reflux disease without esophagitis; E11.622 Type 2 diabetes mellitus with other skin ulcer; E11.42 Type 2 diabetes mellitus with diabetic polyneuropathy; B35.4 Tinea corporis; R33.9 Retention of urine, unspecified; B95.61 Methicillin susceptible Staphylococcus aureus infection as the cause of diseases classified elsewhere; B95.4 Other streptococcus as the cause of diseases classified elsewhere; S82.302G Unspecified fracture of lower end of left tibia, subsequent encounter for closed fracture with delayed healing; K59.00 Constipation, unspecified; S82.832G Other fracture of upper and lower end of left fibula, subsequent encounter for closed fracture with delayed healing; Z79.01 Long term (current) use of anticoagulants; Z79.4 Long term (current) use of insulin; Z79.899 Other long term (current) drug therapy; Z86.711 Personal history of pulmonary embolism

== ENCOUNTER 2025-01-09 08:02 | Day surgery (SDC) | payer MEDICARE, MEDICAID ==
[~2025-01-09] VITALS: Ht 162.6 cm; Wt 56.2 kg
[~2025-01-09 08:02] MED LIST changes: +ATOR40TA75 PO; +CEPH500C PO; +COLA100C5 PO; +ELIQ2.5T PO; +NOVOINJ3 SC; +OXYC1TAB23 PO
[2025-01-09] MEDS ORDERED: dexAMETHasone 4 MG/ML 1 ML VIAL As Ordered ONE (08:10)
[2025-01-09] MEDS ORDERED: LIDOCAINE 2% 100 MG/5 ML SDV (FOR ANES.) As Ordered ONE (08:10)
[2025-01-09] MEDS ORDERED: ONDANSETRON 4MG 2ML VIAL As Ordered ONE (08:10)
[2025-01-09] MEDS ORDERED: MIDAZOLAM INJ 2 MG/2 ML VIAL As Ordered ONE (08:34)
[2025-01-09] MEDS: LIDOCAINE 2% W/EPINEPHrine 20 ML VIAL **PRES FREE As Ordered ONE (09:30)
[2025-01-09] MEDS ORDERED: ACETAMINOPHEN 1000MG/100ML IV BAG As Ordered ONE (10:42)
[2025-01-09] MEDS: LIDOCAINE W/EPINEPHrine 1% 20 ML VIAL As Ordered ONE (10:51)
[2025-01-09] MEDS: GENTAMICIN SULF 80 MG/2 ML VIAL As Ordered ONE (10:52)
[2025-01-09 12:45] VITALS: BP 152/80; TEMP 97.1; O2SAT 98
== END 2025-01-09 13:21 | disposition home or self-care (01) ==
LOC: M SDC 08:02
PROVIDERS: ATTEND Plastic Surgery Surgery of the Hand
DX: L97.923 Non-pressure chronic ulcer of unspecified part of left lower leg with necrosis of muscle (principal); I96 Gangrene, not elsewhere classified
CPT/HCPCS: 11043; 15271; 87070; 87075; 87077; 87186; 87205; 88304; J0131; J0665; J0690; J1100; J1580; J2250; J2405; J3010; Q4100

== ENCOUNTER → 2025-01-10 | Outpatient (CLI) | payer MEDICARE, MEDICAID | LOC: M SOG 14:45 | PROVIDERS: ATTEND Orthopaedic Surgery | DX: S82.302D Unspecified fracture of lower end of left tibia, subsequent encounter for closed fracture with routine healing (principal); S82.402D Unspecified fracture of shaft of left fibula, subsequent encounter for closed fracture with routine healing ==

== ENCOUNTER → 2025-03-21 | Outpatient (CLI) | payer MEDICARE, MEDICAID ==
[~2025-03-21] MED LIST changes: -IBUP-1022 PO; +IBUP600T42 PO
== END ==
LOC: M SOG 07:34
PROVIDERS: ATTEND Physician Assistant
DX: S82.302K Unspecified fracture of lower end of left tibia, subsequent encounter for closed fracture with nonunion (principal); L97.326 Non-pressure chronic ulcer of left ankle with bone involvement without evidence of necrosis

== ENCOUNTER → 2025-05-07 | Outpatient (REF) | payer MEDICARE, MEDICAID ==
[2025-05-07 15:28] LABS: ALT/SGPT 130 U/L (7.0-40); AST/SGOT 72 U/L (<34); CALCIUM LEVEL 9.9 MG/DL (8.3-10.6); CARBON DIOXIDE LEVEL 26 MMOL/L (20-31); CHLORIDE LEVEL 105 MMOL/L (98-107); CHOLESTEROL LEVEL 157 MG/DL (<200); CHOLESTEROL RISK RATIO 2.64 (<5); CREATININE FOR GFR 0.65 MG/DL (0.55-1.30); GLOMERULAR FILTRATION RATE > 90.0 (>45); LDL CHOLESTEROL 78.3 MG/DL (<100); NON-HDL-C 97.7 MG/DL; POTASSIUM SERUM 4.4 MMOL/L (3.5-5.1); SODIUM LEVEL 143 MMOL/L (136-145); TRIGLYCERIDES LEVEL 97 MG/DL (<150)
== END ==
LOC: M LAB REF 14:52
PROVIDERS: ATTEND Student in an Organized Health Care Education/Training Program
DX: Z79.4 Long term (current) use of insulin (principal); E11.9 Type 2 diabetes mellitus without complications; E78.5 Hyperlipidemia, unspecified

== ENCOUNTER → 2025-05-23 | Outpatient (CLI) | payer MEDICARE, MEDICAID | LOC: M SOG 07:36 | PROVIDERS: ATTEND Orthopaedic Surgery | DX: S82.302K Unspecified fracture of lower end of left tibia, subsequent encounter for closed fracture with nonunion (principal); Y93.9 Activity, unspecified; Y92.9 Unspecified place or not applicable ==